=== PATIENT | male | born 1955 | race Caucasian/White ===

== ENCOUNTER → 2025-02-16 | Outpatient (CLI) | payer MEDICARE, OTHER, SELFPAY ==
--- OUTSIDE RECORDS SUMMARY | 2025-02-16 07:52 | XMS RPT_ITS | CCD ---
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 These images were reviewed on 10/12/20. TROPONIN I, PT/INR, CBC, B12, FOLATE, RPR, LIPID PROFILE 10/08/2020: B12 1319, cholesterol 205, LDL 138. AMMONIA, BMP, TSH, CBC 10/09/2020: Hemoglobin 13.2, hematocrit 40. HEAD MRI 10/09/2020: No diffusion evidence of acute infarct. Mild supratentorial white matter changes, similar to 05/24/19. 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 No suspicious intracranial enhancement. These images were reviewed on 10/12/20. EKG 02/05/2021: Normal sinus rhythm, left axis deviation and incomplete right bundle branch block. Abnormal EKG. HEAD MRI 02/07/2021: Small subacute to early chronic ischemic infarct within the posterolateral right frontal lobe. No acute hemorrhage or mass effect. Mild atrophy and chronic small vessel ischemic changes of the supratentorial white matter. CMP, TSH, direct bilirubin, CBC (01/28/21): total bilirubin 1.5, WBC 4.27 (low). Cardiac echo (03/29/21): normal left ventricular chamber size and wall thickness. Systolic function is low normal with no regional wall motion abnormalities with a (more content not included)... Normal [facility] CBC Auto Differentialon 08-02 Basophils (Bld) [#/Vol] 0.07 10*3/uL [facility] Basophils/100 WBC (Bld) 2.0 % [facility] Eosinophils (Bld) [#/Vol] 0.16 10*3/uL [facility] Eosinophils/100 WBC (Bld) 4.6 % [facility] Erythrocyte distribution width (RBC) [Entitic vol] 12.4 % 11.6 - 14.8 % [facility] Hematocrit (Bld) [Volume fraction] 42.8 % 41.0 - 53.0 % [facility] Hemoglobin (Bld) [Mass/Vol] 14.4 g/dL 13.5 - 17.5 g/dL [facility] Immature granulocytes (Bld) [#/Vol] 0.01 10*3/uL [facility] Immature granulocytes/100 WBC (Bld) 0.30 % [facility] Comment on above: The IG parameter is the percentage of metamyelocytes, myelocytes and promyelocytes. An immature granulocyte count (IG) of 1% or more suggests the possibility of infection, an IG count of 3% is very likely related to an infection. Interpretation and review of laboratory results Abnormal [facility] Lymphocytes (Bld) [#/Vol] 0.78 10*3/uL Low [facility] Lymphocytes/100 WBC (Bld) 22.3 % [facility] MCH (RBC) [Entitic mass] 31.1 pg 26.0 - 34.0 pg [facility] MCHC (RBC) [Mass/Vol] 33.6 g/dL 31.0 - 37.0 g/dL [facility] MCV (RBC) [Entitic vol] 92.4 fL 80.0 - 100.0 fL [facility] Monocytes (Bld) [#/Vol] 0.44 10*3/uL [facility] Monocytes/100 WBC (Bld) 12.6 % [facility] Neutrophils (Bld) [#/Vol] 2.03 10*3/uL [facility] Neutrophils/100 WBC (Bld) 58.2 % [facility] Nucleated RBC (Bld) [#/Vol] 0.00 10*3/uL [facility] Nucleated RBC/100 WBC (Bld) [Ratio] 0.0 % [facility] Platelet mean volume (Bld) [Entitic vol] 9.7 fL 9.4 - 12.4 fL [facility] Platelets (Bld) [#/Vol] 201 10*3/uL [facility] RBC (Bld) [#/Vol] 4.63 10*6/uL [facility] WBC (Bld) [#/Vol] 3.49 10*3/uL Low [facility] Comprehensive metabolic 2000 panelon 08-12-2023 Albumin [Mass/Vol] 4.4 g/dL 3.2 - 5.2 g/dL [facility] ALP [Catalytic activity/Vol] 65 U/L 40 - 150 U/L [facility] ALT [Catalytic activity/Vol] 21 U/L 0-50 U/L [facility] Anion gap [Moles/Vol] 13 mmol/L 10 - 20 mmol/L [facility] AST [Catalytic activity/Vol] 26 U/L 0-50 U/L [facility] Bilirubin [Mass/Vol] 1.3 mg/dL 0.0 - 1.3 mg/dL [facility] Calcium [Mass/Vol] 9.6 mg/dL 8.4 - 10.2 mg/dL [facility] Chloride [Moles/Vol] 102 mmol/L 98 - 108 mmol/L [facility] Creatinine [Mass/Vol] 1.27 mg/dL 0.80 - 1.30 mg/dL [facility] GFR/1.73 sq M.predicted CKD-EPI (S/P/Bld) [Vol rate/Area] 61 - PINF [facility] Comment on above: Estimated GFR was ca lculated using the 2020 CKD-EPI creatinine equation. Glucose [Mass/Vol] 86 mg/dL 65 - 99 mg/dL [facility] HCO3 [Moles/Vol] 28 mmol/L 21 - 32 mmol/L [facility] Potassium [Moles/Vol] 4.1 mmol/L 3.5 - 5.1 mmol/L [facility] Protein [Mass/Vol] 6.7 g/dL 6.0 - 8.0 g/dL [facility] Sodium [Moles/Vol] 139 mmol/L 135 - 145 mmol/L [facility] Urea nitrogen [Mass/Vol] 22 mg/dL 8 - 25 mg/dL [facility] Urea nitrogen/Creatini ne [Mass ratio] 17.3 mg/mg 10.0 - 20.0 [facility] has implemented the eGFR calculation approach that does not have a coefficient for race that conforms to the NKF-ASN Task Force Recommendations. [facility] Lipid 1996 panelon Cholesterol [Mass/Vol] 277 mg/dL High 100 - 199 mg/dL [facility] Cholesterol in HDL [Mass/Vol] 56 mg/dL 40 - 59 mg/dL [facility] Cholesterol in LDL [Mass/Vol] 202 mg/dL High 10 - 130 mg/dL [facility] Comment on above: National Cholesterol Education Program Guidelines: LDL Cholesterol Optimal: <100 mg/dL Near Optimal/above Optimal: 100-129 mg/dL Borderline High: 130-159 mg/dL High: 160-189 mg/dL Very High: greater than or equal to 190 mg/dL Cholesterol non HDL [Mass/Vol] 221 mg/dL [facility] Comment on above: National Cholesterol Education Program Guidelines: NON HDL Cholesterol Desirable: <130 mg/dL Borderline High: 130-159 mg/dL High: 160-189 mg/dL Very High: > or = 190 mg/dL Cholesterol.total /Cholesterol in HDL [Mass ratio] 4.9 {ratio} ratio [facility] Comment on above: Males Cholesterol/HD L Ratio: Average risk: 5.0 1/2 average risk: 3.4 2 x average risk: 9.6 Interpretation and review of laboratory results Abnormal [facility] Triglyceride [Mass/Vol] 93 mg/dL 30 - 150 mg/dL [facility] No Panel Informationon 08-11 Interpretation and review of laboratory results Normal [facility] PSA, Screenon 08-12-2023 Prostate specific Ag [Mass/Vol] 0.48 ng/mL 0.00 - 0.99 ng/mL [facility] Comment on above: Per the National Com prehensive Cancer Network (NCCN) Guidelines: . Repeat test every 2-4 years (for ages 45-75) . PSA> 3.0 ng/ml is positive regardless of age. . PSA normal values are based upon a patient with a normal Digital Rectal Exam (KJ). A KJ suspicious for cancer at any PSA level is an indication for biopsy. . Any serum PSA level in a patient previously treated for prostate cancer should be interpreted with caution. Assay performed by [employer], Electrochemiluminescence Immunoassay. Patient results determined by assays using different instrumentation may not be comparable. TSH DL <= 0.005 mIU/L Qnon 0 08-12-2023 Interpretation and review of laboratory results Normal [facility] TSH Qn 2.69 m[IU]/L [facility] CBC Auto Differentialon 07-04 Basophils (Bld) [#/Vol] 0.07 10*3/uL [facility] Basophils/100 WBC (Bld) 2.0 % [facility] Eosinophils (Bld) [#/Vol] 0.15 10*3/uL [facility] Eosinophils/100 WBC (Bld) 4.2 % [facility] Erythrocyte distribution width (RBC) [Entitic vol] 12.5 % 11.6 - 14.8 % [facility] Hematocrit (Bld) [Volume fraction] 43.7 % 41.0 - 53.0 % [facility] Hemoglobin (Bld) [Mass/Vol] 14.4 g/dL 13.5 - 17.5 g/dL [facility] Immature granulocytes (Bld) [#/Vol] 0.01 10*3/uL [facility] Immature granulocytes/100 WBC (Bld) 0.30 % [facility] Comment on above: The IG parameter is the percentage of metamyelocytes, myelocytes and promyelocytes. An immature granulocyte count (IG) of 1% or more suggests the possibility of infection, an IG count of 3% is very likely related to an infection. Interpretation and review of laboratory results Abnormal [facility] Lymphocytes (Bld) [#/Vol] 0.84 10*3/uL Low [facility] Lymphocytes/100 WBC (Bld) 23.5 % [facility] MCH (RBC) [Entitic mass] 30.8 pg 26.0 - 34.0 pg [facility] MCHC (RBC) [Mass/Vol] 33.0 g/dL 31.0 - 37.0 g/dL [facility] MCV (RBC) [Entitic vol] 93.6 fL 80.0 - 100.0 fL [facility] Monocytes (Bld) [#/Vol] 0.41 10*3/uL [facility] Monocytes/100 WBC (Bld) 11.5 % [facility] Neutrophils (Bld) [#/Vol] 2.10 10*3/uL [facility] Neutrophils/100 WBC (Bld) 58.5 % [facility] Nucleated RBC (Bld) [#/Vol] 0.00 10*3/uL [facility] Nucleated RBC/100 WBC (Bld) [Ratio] 0.0 % [facility] Platelet mean volume (Bld) [Entitic vol] 9.9 fL 9.4 - 12.4 fL [facility] Platelets (Bld) [#/Vol] 188 10*3/uL [facility] RBC (Bld) [#/Vol] 4.67 10*6/uL [facility] WBC (Bld) [#/Vol] 3.58 10*3/uL Low [facility] Comprehensive metabolic 2000 panelon 08-01-2022 Albumin [Mass/Vol] 4.1 g/dL 3.2 - 5.2 g/dL [facility] ALP [Catalytic activity/Vol] 62 U/L 40 - 150 U/L [facility] ALT [Catalytic activity/Vol] 32 U/L 14 - 65 U/L [facility] Anion gap [Moles/Vol] 8 mmol/L Low 10 - 20 mmol/L [facility] AST [Catalytic activity/Vol] 23 U/L 0 - 45 U/L [facility] Bilirubin [Mass/Vol] 1.2 mg/dL 0.0 - 1.3 mg/dL [facility] Calcium [Mass/Vol] 9.7 mg/dL 8.4 - 10.2 mg/dL [facility] Chloride [Moles/Vol] 107 mmol/L 98 - 108 mmol/L [facility] Creatinine [Mass/Vol] 1.13 mg/dL 0.80 - 1.30 mg/dL [facility] GFR/1.73 sq M.predicted CKD-EPI (S/P/Bld) [Vol rate/Area] 71 - PINF [facility] Comment on above: Estimated GFR was ca lculated using the 2020 CKD-EPI creatinine equation. Glucose [Mass/Vol] 90 mg/dL 65 - 99 mg/dL [facility] HCO3 [Moles/Vol] 31 mmol/L 21 - 32 mmol/L [facility] Interpretation and review of laboratory results Abnormal [facility] Potassium [Moles/Vol] 4.2 mmol/L 3.5 - 5.1 mmol/L [facility] Protein [Mass/Vol] 6.9 g/dL 6.0 - 8.0 g/dL [facility] Sodium [Moles/Vol] 142 mmol/L 135 - 145 mmol/L [facility] Urea nitrogen [Mass/Vol] 16 mg/dL 8 - 25 mg/dL [facility] Urea nitrogen/Creatini ne [Mass ratio] 14.2 mg/mg 10.0 - 20.0 [facility] has implemented the eGFR calculation approach that does not have a coefficient for race that conforms to the NKF-ASN Task Force Recommendations. [facility] Lipid 1996 panelon Cholesterol [Mass/Vol] 178 mg/dL 100 - 199 mg/dL [facility] Comment on above: National Cholesterol Education Program Guidelines: Cholesterol Desirable: <200 mg/dL Borderline High: 200-239 mg/dL High: greater than or equal to 240 mg/dL Cholesterol in HDL [Mass/Vol] 57 mg/dL 40 - 59 mg/dL [facility] Comment on above: National Cholesterol Education Program Guidelines: HDL Cholesterol Low: <40 mg/dL Near Optimal: 40-59 mg/dL High: greater than or equal to 60 mg/dL Cholesterol in LDL [Mass/Vol] 105 mg/dL 10 - 130 mg/dL [facility] Comment on above: National Cholesterol Education Program Guidelines: LDL Cholesterol Optimal: <100 mg/dL Near Optimal/above Optimal: 100-129 mg/dL Borderline High: 130-159 mg/dL High: 160-189 mg/dL Very High: greater than or equal to 190 mg/dL Cholesterol non HDL [Mass/Vol] 121 mg/dL [facility] Comment on above: National Cholesterol Education Program Guidelines: NON HDL Cholesterol Desirable: <130 mg/dL Borderline High: 130-159 mg/dL High: 160-189 mg/dL Very High: > or = 190 mg/dL Cholesterol.total /Cholesterol in HDL [Mass ratio] 3.1 {ratio} ratio [facility] Comment on above: Males Cholesterol/HD L Ratio: Average risk: 5.0 1/2 average risk: 3.4 2 x average risk: 9.6 Triglyceride [Mass/Vol] 78 mg/dL 30 - 150 mg/dL [facility] Comment on above: National Cholesterol Education Program Guidelines: Triglyceride Normal: <150 mg/dL Borderline High: 150-199 mg/dL High: 200-499 mg/dL Very High: greater than or equal to 500 mg/dL No Panel Informationon 08-01 [facility] PSA, Screenon 08-01-2022 Prostate specific Ag [Mass/Vol] 0.54 ng/mL 0.00 - 0.99 ng/mL [facility] Prostate specific Ag [Mass/V ol]on 08-01-2022 Interpretation and review of laboratory results Normal [facility] TSH DL <= 0.005 mIU/L Qnon 0 08-01-2022 Interpretation and review of laboratory results Normal [facility] TSH Qn 2.94 m[IU]/L [facility] MR BRAIN WITH AND WITHOUT CO NTRASTon 02-07-2021 MR BRAIN WITH AND WITHOUT CONTRAST EXAMINATION: MR BRAIN WITH AND WITHOUT CONTRAST HISTORY: ORDERING SYSTEM PROVIDED HISTORY: Cerebrovascular disease, unspecified, TECHNOLOGIST PROVIDED HISTORY: Illness/Other Reason for exam: Dysarthria following unspecified cerebrovascular disease Encounter Type: Initial Additional signs and symptoms: Dysarthria following unspecified cerebrovascular disease ORDERING SYSTEM PROVIDED DIAGNOSIS CODES: I67.9 Cerebrovascular disease, unspecified I69.922 Dysarthria following unspecified cerebrovascular disease COMPARISON: Brain MRI 10/09/2020. TECHNIQUE: Multiplanar, multisequence MR imaging of the head was performed prior to and following administration of intravenous contrast. CONTRAST: GADOTERATE MEGLUMINE 0.5 MMOL/ML (376.9 MG/ML) INTRAVENOUS SOLUTION - 13 mL, FINDINGS: There is a small subtle area of increased diffusion within the posterolateral right frontal lobe measuring approximately 0.3 x 1.6 cm in the AP and transverse dimensions that demonstrates increased signal on the ADC maps, new compared to the prior MRI. No other focal diffusion signal abnormalities. No acute hemorrhage, mass effect, midline shift or extraaxial fluid collection. There is mild diffuse cerebral atrophy with concordant prominence of the ventricles. Mild scattered foci of increased FLAIR signal seen within the subcortical and periventricular white matter. Expected flow voids are seen within the intracranial internal carotid, vertebral and basilar arteries. The cerebellopontine angles and internal auditory canals are unremarkable. The pituitary gland and midline structures are unremarkable. Bone marrow signal is within normal limits. Orbits and globes are unremarkable. Expected signal voids are seen within the paranasal sinuses and mastoid air cells. There is minimal enhancement within the posterolateral right frontal cortex corresponding to the area of increased diffusion signal. No other abnormal enhancement. IMPRESSION: 1. Small subacute to early chronic ischemic infarct within the posterolateral right frontal lobe. No acute hemorrhage or mass effect. 2. Mild atrophy and chronic small vessel ischemic changes of the supratentorial white matter. [facility] Workstation ID: [id number] Dictated by: JEANNINE KAUR on ThuFeb 08, 2021 10:32:18 AM EDT Transcribed by: SOULEYMANE GARCÍA on ThuFeb 08, 2021 10:41:25 AM EDT Finalized by: JEANNINE KAUR on ThuFeb 08, 2021 5:02:[address] [facility] Comment on above: Order Comment: PT/FA X Order to be faxed from Physicians office; Auth already obtained by office Injury/Trauma or Illness?:Illness/Other How long have you had these symptoms (acute/chronic)?:Acute Reason for exam?:Dysarthria following unspecified cerebrovascular disease Type of Exam?:Initial Additional signs and symptoms?:Dysarthria following unspecified cerebrovascular disease EEG (STANDARD)Ordered By: Fito Morris on 10-09-2020 Gokul Morris MD 12:13 PM [facility] EEG Report Reason for EEG: Altered mentation Summary: This is a 16 channel digital EEG recording. There is a moderately well-developed, moderately well organized background activity with a posterior dominant rhythm of 8-9 Hz. Hyperventilation and photic stimulations were not done. No sleep patterns are noted. No clear epileptiform discharges or ictal activity were seen. Impression: This is a normal EEG in the awake state. There is no clear electrodiagnostic evidence of a diffuse or focal neurophysiological disturbance. No clear epileptiform discharges or ictal activity was seen. [facility] COVID-19, MOLECULARon 2020 SARS-CoV-2 (COVID-19) RNA CORI+probe Ql (Unsp spec) Not detected Normal Not Detected [facility] Comment on above: Order Comment: : COV ID-19 Lab Test Only (OP in UTM) Result Comment: This test was performed under the FDA's Emergency Use Authorization (EUA). Testing was performed using the Tigre SARS-CoV-2 RT-PCR assay on the [employer] 6800 System. This test has not been approved for use in asymptomatic patients and its performance in this patient population has not been evaluated. Negative results do not rule out the presence of SARS-CoV-2/COVID-19. Fact sheets for this EUA can be found at the following links: For Healthcare Providers: https://www.fda.gov/media/179490/download For Patients: https://www.fda.gov/media/088138/download Performed By: #### L [id number] #### [facility] [address] [place] [address] Rolando Hayes M.D. [id number] SCAN OTHER ORDERSon 07-04-19 20 Ordered by an unspec ified provider. [facility] CBC AND DIFFERENTIALon 06-09 Basophils (Bld) [#/Vol] 0.0 10*3/uL [facility] Basophils/100 WBC (Bld) 1.0 % [facility] Eosinophils (Bld) [#/Vol] 0.1 10*3/uL [facility] Eosinophils/100 WBC (Bld) 3.4 % [facility] Erythrocyte distribution width (RBC) [Ratio] 13.7 % 10 - 14.3 % [facility] Hematocrit (Bld) [Volume fraction] 36.6 % Low 37.9 - 49.2 % [facility] Hemoglobin (Bld) [Mass/Vol] 12.2 g/dL Low 12.9 - 16.9 g/dL [facility] Interpretation and review of laboratory results Abnormal [facility] Lymphocytes (Bld) [#/Vol] 0.7 10*3/uL Low [facility] Lymphocytes/100 WBC (Bld) 16.2 % [facility] MCH (RBC) [Entitic mass] 30.1 pg 27.7 - 34.6 pg [facility] MCHC (RBC) [Mass/Vol] 33.4 g/dL 32.9 - 35.5 g/dL [facility] MCV (RBC) [Entitic vol] 89.9 fL [facility] Monocytes (Bld) [#/Vol] 0.4 10*3/uL [facility] Monocytes/100 WBC (Bld) 10.0 % [facility] Neutrophils (Bld) [#/Vol] 3.1 10*3/uL [facility] Platelet mean volume (Bld) [Entitic vol] 8.2 fL [facility] Platelets (Bld) [#/Vol] 216 10*3/uL [facility] RBC (Bld) [#/Vol] 4.07 10*6/uL [facility] ealth Segmented neutrophils/100 WBC (Bld) 69.4 % [facility] WBC (Bld) [#/Vol] 4.4 10*3/uL [facility] CBC with Diffon 06-09-2018 Basophils #/vol (Bld) 0.0 K/mcL Normal 0-0.2 [facility] Comment on above: Performed By: #### C BCDIF #### Unless otherwise noted, all testing performed by [place] [address] CLIA: [id number] Certified Endoscopy Technician: Manolo Jacobs M.D. Basophils/100 WBC (Bld) 1.0 % Normal [facility] Comment on above: Performed By: #### C BCDIF #### Unless otherwise noted, all testing performed by [place] [address] CLIA: [id number] Certified Endoscopy Technician: Manolo Jacobs M.D. Eosinophils #/vol (Bld) 0.1 K/mcL Normal 0-0.5 [facility] Comment on above: Performed By: #### C BCDIF #### Unless otherwise noted, all testing performed by [place] [address] CLIA: [id number] Certified Endoscopy Technician: Manolo Jacobs M.D. Eosinophils/100 WBC (Bld) 3.4 % Normal [facility] Comment on above: Performed By: #### C BCDIF #### Unless otherwise noted, all testing performed by [place] [address] CLIA: [id number] Certified Endoscopy Technician: Manolo Jacobs M.D. Erythrocyte distribution width Ratio (RBC) 13.7 % Normal 10-14.3 [facility] Comment on above: Performed By: #### C BCDIF #### Unless otherwise noted, all testing performed by [place] [address] CLIA: [id number] Certified Endoscopy Technician: Manolo Jacobs M.D. Hematocrit Volume Fraction (Bld) 36.6 % Low 37.9-49.2 [facility] Comment on above: Performed By: #### C BCDIF #### Unless otherwise noted, all testing performed by [place] [address] CLIA: [id number] Certified Endoscopy Technician: Manolo Jacobs M.D. Hemoglobin mass conc (Bld) 12.2 g/dL Low 12.9-16.9 [facility] Comment on above: Performed By: #### C BCDIF #### Unless otherwise noted, all testing performed by [place] [phone] CLIA: [id number] Certified Endoscopy Technician: Manolo Jacobs M.D. Lymphocytes #/vol (Bld) 0.7 K/mcL Low 0.9-3.6 [facility] Comment on above: Performed By: #### C BCDIF #### Unless otherwise noted, all testing performed by [place] [address] CLIA: [id number] Certified Endoscopy Technician: Manolo Jacobs M.D. Lymphocytes/100 WBC (Bld) 16.2 % Normal [facility] Comment on above: Performed By: #### C BCDIF #### Unless otherwise noted, all testing performed by [place] [address] CLIA: [id number] Certified Endoscopy Technician: Manolo Jacobs M.D. MCH Entitic mass (RBC) 30.1 pg Normal 27.7-34.6 [facility] Comment on above: Performed By: #### C BCDIF #### Unless otherwise noted, all testing performed by [place] [address] CLIA: [id number] Certified Endoscopy Technician: Manolo Jacobs M.D. MCHC mass conc (RBC) 33.4 g/dL Normal 32.9-35.5 [facility] Comment on above: Performed By: #### C BCDIF #### Unless otherwise noted, all testing performed by [place] [phone] CLIA: [id number] Certified Endoscopy Technician: Manolo Jacobs M.D. MCV Entitic volume (RBC) 89.9 fL Normal 82.8-99.3 [facility] Comment on above: Performed By: #### C BCDIF #### Unless otherwise noted, all testing performed by [place] [phone] CLIA: [id number] Certified Endoscopy Technician: Manolo Jacobs M.D. Monocytes #/vol (Bld) 0.4 K/mcL Normal 0.2-0.6 [facility] Comment on above: Performed By: #### C BCDIF #### Unless otherwise noted, all testing performed by [place] [phone] CLIA: [id number] Certified Endoscopy Technician: Manolo Jacobs M.D. Monocytes/100 WBC (Bld) 10.0 % Normal [facility] Comment on above: Performed By: #### C BCDIF #### Unless otherwise noted, all testing performed by [place] [address] CLIA: [id number] Certified Endoscopy Technician: Manolo Jacobs M.D. Neutrophils #/vol (Bld) 3.1 K/mcL Normal 1.4-6.8 [facility] Comment on above: Performed By: #### C BCDIF #### Unless otherwise noted, all testing performed by [place] [address] CLIA: [id number] Certified Endoscopy Technician: Manolo Jacobs M.D. Platelet mean volume Entitic volume (Bld) 8.2 fL Normal 6.6-10.8 [facility] Comment on above: Performed By: #### C BCDIF #### Unless otherwise noted, all testing performed by [place] [phone] CLIA: [id number] Certified Endoscopy Technician: Manolo Jacobs M.D. Platelets #/vol (Bld) 216 K/mcL Normal 139-354 [facility] Comment on above: Performed By: #### C BCDIF #### Unless otherwise noted, all testing performed by [place] [phone] CLIA: [id number] Certified Endoscopy Technician: Manolo Jacobs M.D. RBC #/vol (Bld) 4.07 M/mcL Normal 4.0-5.5 [facility] Comment on above: Performed By: #### C BCDIF #### Unless otherwise noted, all testing performed by [place] [address] CLIA: [id number] Certified Endoscopy Technician: Manolo Jcaobs M.D. Segmented Neut % 69.4 % Normal [facility] Comment on above: Performed By: #### C BCDIF #### Unless otherwise noted, all testing performed by [place] [address] CLIA: [id number] Certified Endoscopy Technician: Manolo Jacobs M.D. WBC #/vol (Bld) 4.4 K/mcL Normal 3.6-10.4 [facility] Comment on above: Performed By: #### C BCDIF #### Unless otherwise noted, all testing performed by [place] [address] CLIA: [id number] Certified Endoscopy Technician: Manolo Jacobs M.D. CBC with Diffon 04-02-2018 Basophils #/vol (Bld) 0.1 K/mcL Normal 0-0.2 [facility] Comment on above: Result Comment: FAX [phone] Performed By: #### C BCDIF #### Unless otherwise noted, all testing performed by [place] [address] CLIA: [id number] Certified Endoscopy Technician: Manolo Jacobs M.D. Basophils/100 WBC (Bld) 1.2 % Normal [facility] Comment on above: Result Comment: FAX [phone] Performed By: #### C BCDIF #### Unless otherwise noted, all testing performed by [place] [address] CLIA: [id number] Certified Endoscopy Technician: Manolo Jacobs M.D. Eosinophils #/vol (Bld) 0.2 K/mcL Normal 0-0.5 [facility] Comment on above: Result Comment: FAX [phone] Performed By: #### C BCDIF #### Unless otherwise noted, all testing performed by [address] [place] [address] CLIA: [id number] Certified Endoscopy Technician: Manolo Jacobs M.D. Eosinophils/100 WBC (Bld) 3.9 % Normal [facility] Comment on above: Result Comment: FAX [phone] Performed By: #### C BCDIF #### Unless otherwise noted, all testing performed by [place] [address] CLIA: [id number] Certified Endoscopy Technician: Manolo Jacobs M.D. Erythrocyte distribution width Ratio (RBC) 14.4 % High 10-14.3 [facility] Comment on above: Result Comment: FAX [phone] Performed By: #### C BCDIF #### Unless otherwise noted, all testing performed by [place] [address] CLIA: [id number] Certified Endoscopy Technician: Manolo Jacobs M.D. Hematocrit Volume Fraction (Bld) 38.3 % Normal 37.9-49.2 [facility] Comment on above: Result Comment: FAX [phone] Performed By: #### C BCDIF #### Unless otherwise noted, all testing performed by [place] [address] CLIA: [id number] Certified Endoscopy Technician: Manolo Jacobs M.D. Hemoglobin mass conc (Bld) 12.7 g/dL Low 12.9-16.9 [facility] Comment on above: Result Comment: FAX [phone] Performed By: #### C BCDIF #### Unless otherwise noted, all testing performed by [place] [address] CLIA: [id number] Certified Endoscopy Technician: Manolo Jacobs M.D. Lymphocytes #/vol (Bld) 0.8 K/mcL Low 0.9-3.6 [facility] Comment on above: Result Comment: FAX [phone] Performed By: #### C BCDIF #### Unless otherwise noted, all testing performed by [place] [address] CLIA: [id number] Certified Endoscopy Technician: Manolo Jacobs M.D. Lymphocytes/100 WBC (Bld) 18.2 % Normal [facility] Comment on above: Result Comment: FAX [phone] Performed By: #### C BCDIF #### Unless otherwise noted, all testing performed by [place] [address] CLIA: [id number] Certified Endoscopy Technician: Manolo Jacobs M.D. MCH Entitic mass (RBC) 30.6 pg Normal 27.7-34.6 [facility] Comment on above: Result Comment: FAX [phone] Performed By: #### C BCDIF #### Unless otherwise noted, all testing performed by [place] [address] CLIA: [id number] Certified Endoscopy Technician: Manolo Jacobs M.D. MCHC mass conc (RBC) 33.1 g/dL Normal 32.9-35.5 [facility] Comment on above: Result Comment: FAX [phone] Performed By: #### C BCDIF #### Unless otherwise noted, all testing performed by [place] [address] CLIA: [id number] Certified Endoscopy Technician: Manolo Jacobs M.D. MCV Entitic volume (RBC) 92.4 fL Normal 82.8-99.3 [facility] Comment on above: Result Comment: FAX [phone] Performed By: #### C BCDIF #### Unless otherwise noted, all testing performed by [place] [address] CLIA: [id number] Certified Endoscopy Technician: Manolo Jacobs M.D. Monocytes #/vol (Bld) 0.5 K/mcL Normal 0.2-0.6 [facility] Comment on above: Result Comment: FAX [phone] Performed By: #### C BCDIF #### Unless otherwise noted, all testing performed by [place] [address] CLIA: [id number] Certified Endoscopy Technician: Manolo Jacobs M.D. Monocytes/100 WBC (Bld) 11.6 % Normal [facility] Comment on above: Result Comment: FAX [phone] Performed By: #### C BCDIF #### Unless otherwise noted, all testing performed by [place] [address] CLIA: [id number] Certified Endoscopy Technician: Manolo Jaocbs M.D. Neutrophils #/vol (Bld) 3.0 K/mcL Normal 1.4-6.8 [facility] Comment on above: Result Comment: FAX [phone] Performed By: #### C BCDIF #### Unless otherwise noted, all testing performed by [place] [address] CLIA: [id number] Certified Endoscopy Technician: Manolo Jacobs M.D. Platelet mean volume Entitic volume (Bld) 7.9 fL Normal 6.6-10.8 [facility] Comment on above: Result Comment: FAX [phone] Performed By: #### C BCDIF #### Unless otherwise noted, all testing performed by [place] [address] CLIA: [id number] Certified Endoscopy Technician: Manolo Jacobs M.D. Platelets #/vol (Bld) 194 K/mcL Normal 139-354 [facility] Comment on above: Result Comment: FAX [phone] Performed By: #### C BCDIF #### Unless otherwise noted, all testing performed by [place] [address] CLIA: [id number] Certified Endoscopy Technician: Manolo Jacobs M.D. RBC #/vol (Bld) 4.14 M/mcL Normal 4.0-5.5 [facility] Comment on above: Result Comment: FAX [phone] Performed By: #### C BCDIF #### Unless otherwise noted, all testing performed by [place] [address] CLIA: [id number] Certified Endoscopy Technician: Manolo Jacobs M.D. Segmented Neut % 65.1 % Normal [facility] Comment on above: Result Comment: FAX [phone] Performed By: #### C BCDIF #### Unless otherwise noted, all testing performed by [place] [address] CLIA: [id number] Certified Endoscopy Technician: Manolo Jacobs M.D. WBC #/vol (Bld) 4.6 K/mcL Normal 3.6-10.4 [facility] Comment on above: Result Comment: FAX [phone] Performed By: #### C BCDIF #### Unless otherwise noted, all testing performed by [facility] [place] [id number] CLIA: [id number] Certified Endoscopy Technician: Manolo Jacobs M.D. Vital Signs Date Time Vital Sign Value Performing Clinician [facility] 01-18-2025 16:10-0400 Body height 175.3 cm Gigi George DO Work Phone: [facility] 01-18-2025 16:10-0400 Body mass index (BMI) [Ratio] 22.96 kg/m2 Gigi George DO Work Phone: [facility] 01-18-2025 16:10-0400 Body temperature 97 [degF] Gigi George DO Work Phone: [facility] 01-18-2025 16:10-0400 Body weight 70.53 kg Gigi George DO Work Phone: [facility] 01-18-2025 16:10-0400 Diastolic blood pressure 60 mm[Hg] Gigi George DO Work Phone: [facility] 01-18-2025 16:10-0400 Heart rate 60 /min Gigi George DO Work Phone: [facility] 01-18-2025 16:10-0400 Respiratory rate 16 /min Gigi George DO Work Phone: [facility] 01-18-2025 16:10-0400 SaO2% (BldA) [Mass fraction] 98 % Gigi George DO Work Phone: [facility] 01-18-2025 16:10-0400 Systolic blood pressure 100 mm[Hg] Gigi George D O Work Phone: [facility] 07-21-2024 07:41-0400 Body height 175.3 cm Gigi George DO Work Phone: [facility] 07-21-2024 07:41-0400 Body mass index (BMI) [Ratio] 22.65 kg/m2 Gigi George DO Work Phone: [facility] 07-21-2024 07:41-0400 Body temperature 98.2 [degF] Gigi George DO Work Phone: [facility] 07-21-2024 07:41-0400 Body weight 69.58 kg Gigi George DO Work Phone: [facility] 07-21-2024 07:41-0400 Diastolic blood pressure 82 mm[Hg] Gigi George DO Work Phone: [facility] 07-21-2024 07:41-0400 Heart rate 58 /min Gigi George DO Work Phone: [facility] 07-21-2024 07:41-0400 SaO2% (BldA) [Mass fraction] 95 % Gigi George DO Work Phone: [facility] 07-21-2024 07:41-0400 Systolic blood pressure 124 mm[Hg] Gigi Ghotra O Work Phone: [facility] 08-12-2023 07:58-0400 Diastolic blood pressure 90 mm[Hg] Gigi George DO Work Phone: [facility] 08-12-2023 07:58-0400 Systolic blood pressure 140 mm[Hg] Gigi Ghotra O Work Phone: [facility] 08-12-2023 07:39-0400 Body height 175.3 cm Gigi George DO Work Phone: [facility] 08-12-2023 07:39-0400 Body mass index (BMI) [Ratio] 22.4 kg/m2 Gigi George DO Work Phone: [facility] 08-12-2023 07:39-0400 Body temperature 98.71 [degF] Gigi George DO Work Phone: [facility] 08-12-2023 07:39-0400 Body weight 68.81 kg Gigi George DO Work Phone: [facility] 08-12-2023 07:39-0400 Heart rate 72 /min Gigi Doris DO Work Phone: [facility] 08-12-2023 07:39-0400 Respiratory rate 16 /min Gigi Doris DO Work Phone: [facility] 08-12-2023 07:39-0400 SaO2% (BldA) [Mass fraction] 96 % Gigi George DO Work Phone: [facility] 08-01-2022 07:48-0400 Diastolic blood pressure 80 mm[Hg] Gigi George DO Work Phone: [facility] 08-01-2022 07:48-0400 Systolic blood pressure 146 mm[Hg] Gigi George D O Work Phone: [facility] 08-01-2022 07:28-0400 Body height 175.3 cm Gigi George DO Work Phone: [facility] 08-01-2022 07:28-0400 Body mass index (BMI) [Ratio] 21.89 kg/m2 Gigi Doris DO Work Phone: [facility] 08-01-2022 07:28-0400 Body temperature 97.5 [degF] Gigi Doris DO Work Phone: [facility] 08-01-2022 07:28-0400 Body weight 67.22 kg Gigi Doris DO Work Phone: [facility] 08-01-2022 07:28-0400 Heart rate 78 /min Gigi George DO Work Phone: [facility] 08-01-2022 07:28-0400 Respiratory rate 16 /min Gigi George DO Work Phone: [facility] 01-16-2022 10:32-0400 Body height 175.3 cm Gigi George DO Work Phone: [facility] 01-16-2022 10:32-0400 Body mass index (BMI) [Ratio] 22.48 kg/m2 Gigi George DO Work Phone: [facility] 01-16-2022 10:32-0400 Body temperature 98.29 [degF] Gigi George DO Work Phone: [facility] 01-16-2022 10:32-0400 Body weight 69.04 kg Gigi George DO Work Phone: [facility] 01-16-2022 10:32-0400 Diastolic blood pressure 78 mm[Hg] Gigi George DO Work Phone: [facility] 01-16-2022 10:32-0400 Heart rate 66 /min Gigi George DO Work Phone: [facility] 01-16-2022 10:32-0400 Respiratory rate 16 /min Gigi George DO Work Phone: [facility] 01-16-2022 10:32-0400 SaO2% (BldA) [Mass fraction] 98 % Gigi George DO Work Phone: [facility] 01-16-2022 10:32-0400 Systolic blood pressure 128 mm[Hg] Gigi George D O Work Phone: [facility] 07-11-2021 10:38-0500 Diastolic blood pressure 80 mm[Hg] Gigi George DO Work Phone: [facility] 07-11-2021 10:38-0500 Systolic blood pressure 132 mm[Hg] Gigi Ghotra O Work Phone: [facility] 07-11-2021 10:12-0500 Body height 175.3 cm Gigi George DO Work Phone: [facility] 07-11-2021 10:12-0500 Body mass index (BMI) [Ratio] 22.3 kg/m2 Gigi George DO Work Phone: [facility] 07-11-2021 10:12-0500 Body temperature 97.59 [degF] Gigi George DO Work Phone: [facility] 07-11-2021 10:12-0500 Body weight 68.49 kg Gigi George DO Work Phone: [facility] 07-11-2021 10:12-0500 Heart rate 66 /min Gigi Doris DO Work Phone: [facility] 07-11-2021 10:12-0500 Respiratory rate 18 /min Gigi Doris DO Work Phone: [facility] 07-11-2021 10:12-0500 SaO2% (BldA) [Mass fraction] 96 % Gigi George DO Work Phone: [facility] 03-27-2021 09:10-0500 Diastolic blood pressure 88 mm[Hg] Fazal Knapp MD Work Phone: [facility] 03-27-2021 09:10-0500 Systolic blood pressure 155 mm[Hg] Fazal Knapp MD Work Phone: [facility] 03-27-2021 08:57-0500 Body height 175.3 cm Fazal Knapp MD Work Phone: [facility] 03-27-2021 08:57-0500 Body mass index (BMI) [Ratio] 22 kg/m2 Fazal Knapp MD Work Phone: [facility] 03-27-2021 08:57-0500 Body weight 67.59 kg Fazal Knapp MD Work Phone: [facility] 03-27-2021 08:57-0500 Heart rate 78 /min Fazal Knapp MD Work Phone: [facility] 03-27-2021 08:57-0500 SaO2% (BldA) [Mass fraction] 98 % Fazal Knapp MD Work Phone: [facility] 03-14-2021 14:42-0500 Body height 175.3 cm Gigi George DO Work Phone: [facility] 03-14-2021 14:42-0500 Body mass index (BMI) [Ratio] 22 kg/m2 Gigi George DO Work Phone: [facility] 03-14-2021 14:42-0500 Body temperature 98.1 [degF] Gigi Doris DO Work Phone: [facility] 03-14-2021 14:42-0500 Body weight 67.59 kg Gigi Doris DO Work Phone: [facility] 03-14-2021 14:42-0500 Diastolic blood pressure 70 mm[Hg] Gigi George DO Work Phone: [facility] 03-14-2021 14:42-0500 Heart rate 79 /min Gigi Doris DO Work Phone: [facility] 03-14-2021 14:42-0500 Respiratory rate 18 /min Gigi George DO Work Phone: [facility] 03-14-2021 14:42-0500 SaO2% (BldA) [Mass fraction] 96 % Gigi George DO Work Phone: [facility] 03-14-2021 14:42-0500 Systolic blood pressure 136 mm[Hg] Gigi George D O Work Phone: [facility] 07-11-2019 15:30-0400 Body Temperature 97.7 [degF] [facility] 07-11-2019 15:30-0400 BP Diastolic 82 mm[Hg] [facility] 07-11-2019 15:30-0400 BP Systolic 163 mm[Hg] [facility] 07-11-2019 15:30-0400 Pulse (Heart Rate) 68 /min [facility] 07-11-2019 15:30-0400 Pulse Oximetry 98 % [facility] 07-11-2019 15:25-0400 BMI (Body Mass Index) 21.63 kg/m2 [facility] 07-11-2019 15:25-0400 Body weight 66.45 kg [facility] 07-11-2019 15:25-0400 Height 175.3 cm [facility] 07-05-2019 15:21-0500 BP Diastolic 105 mm[Hg] [facility] 07-05-2019 15:21-0500 BP Systolic 152 mm[Hg] [facility] 07-05-2019 15:21-0500 Pulse (Heart Rate) 77 /min [facility] 07-05-2019 15:04-0500 Pulse Oximetry 98 % [facility] 07-05-2019 15:04-0500 Respiratory Rate 15 /min [facility] 07-05-2019 14:40-0500 Body Temperature 97.81 [degF] [facility] 07-05-2019 12:48-0500 BMI (Body Mass Index) 21.41 kg/m2 [facility] 07-05-2019 12:48-0500 Body weight 65.77 kg [facility] 07-05-2019 12:48-0500 Height 175.3 cm [facility] 06-17-2019 13:48-0500 Body Temperature 98.71 [degF] [facility] 06-17-2019 13:48-0500 BP Diastolic 74 mm[Hg] [facility] 06-17-2019 13:48-0500 BP Systolic 118 mm[Hg] [facility] 06-17-2019 13:48-0500 Pulse (Heart Rate) 77 /min [facility] 06-17-2019 13:48-0500 Pulse Oximetry 95 % [facility] 06-17-2019 13:40-0500 BMI (Body Mass Index) 21.59 kg/m2 [facility] 06-17-2019 13:40-0500 Body weight 66.32 kg [facility] 06-17-2019 13:40-0500 Height 175.3 cm [facility] Encounters Encounter Date Encounter Type Care Provider Facility Start: 02-16-2025 ambulatory Dayana Stahl Facilit y:[facility] Start: 01-18-2025 End: 01-18-2025 Patient encounter procedure Gigi George DO Work Phone: [facility] Comment on above: Routine general medi michael examination at a health care facility (Primary Dx); At low risk for fall; Screen for colon cancer; 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 Start: 01-18-2025 End: 01-18-2025 Patient encounter status Gigi George DO Work Phone: [facility] Start: 01-16-2025 End: 01-16-2025 Documentation procedure Gigi George DO Work Phone: [facility] Comment on above: MWV OUTREACH (APPT ) Start: 01-01-2025 End: 01-03-2025 Refill Gigi George DO Work Phone: [facility] Comment on above: Erectile dysfunction , unspecified erectile dysfunction type Start: 12-30-2024 End: 01-03-2025 Refill Gigi George DO Work Phone: [facility] Start: 11-17-2024 End: 11-17-2024 Refill Gigi George DO Work Phone: [facility] Comment on above: Mild intermittent ex trinsic asthma without complication Start: 10-30-2024 End: 10-31-2024 Refill Gigi George DO Work Phone: [facility] Comment on above: Erectile dysfunction , unspecified erectile dysfunction type Start: 10-05-2024 ambulatory GIGI GEORGE [facility] Amb[facility] Start: 08-27-2024 End: 08-29-2024 Refill Gigi George DO Work Phone: [facility] Comment on above: Erectile dysfunction , unspecified erectile dysfunction type Start: 07-22-2024 End: 07-22-2024 Follow-up encounter Gigi George DO Work Phone: [facility] Start: 07-21-2024 End: 07-21-2024 ambulatory [facility] Start: 07-21-2024 End: 07-21-2024 Office outpatient visit 25 minutes Gigi George DO Work Phone: [facility] Comment on above: Primary hypertension (Primary Dx); Dementia in other diseases classified elsewhere, mild, with mood disturbance (HCC); Hypercholesterolemia; Prostate cancer screening; At low risk for fall; 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 Start: 07-21-2024 End: 07-21-2024 ambulatory GIGI SNOWFredy JONESDORIS [facility] Start: 06-25-2024 End: 06-26-2024 Refill Gigi George DO Work Phone: [facility] Comment on above: Erectile dysfunction , unspecified erectile dysfunction type Start: 04-21-2024 End: 04-21-2024 Refill Ggii Snowe Doris DO Work Phone: [facility] Comment on above: Mild intermittent ex trinsic asthma without complication Start: 04-13-2024 End: 04-13-2024 Refill Gigi George DO Work Phone: [facility] Comment on above: Erectile dysfunction , unspecified erectile dysfunction type Start: 02-18-2024 End: 02-18-2024 ambulatory GIGI GEORGE [facility] Start: 01-03-2024 End: 01-05-2024 Refill Gigi Mic Doris DO Work Phone: [facility] Start: 12-03-2023 End: 12-04-2023 Refill Gigi Mic Doris DO Work Phone: [facility] Comment on above: Mild intermittent ex trinsic asthma without complication Start: 09-22-2023 Refill Gigi mayell DO Work Phone: [facility] Comment on above: Mild intermittent ex trinsic asthma without complication Start: 08-12-2023 End: 08-12-2023 Office outpatient visit 25 minutes Gigi George DO Work Phone: [facility] Comment on above: Primary hypertension (Primary Dx); Fatigue, unspecified type; Erectile dysfunction, unspecified erectile dysfunction type; Dementia in other diseases classified elsewhere, mild, with mood disturbance (HCC); Prostate cancer screening Start: 12-08-2022 Refill Gigi Mesa laloell DO Work Phone: [facility] Start: 08-05-2022 End: 08-05-2022 ambulatory [facility] Start: 08-01-2022 End: 08-01-2022 Office outpatient visit 25 minutes Gigi George DO Work Phone: [facility] Comment on above: Primary hypertension (Primary Dx); Fatigue, unspecified type; Senile dementia, uncomplicated (HCC); Erectile dysfunction, unspecified erectile dysfunction type; At low risk for fall; Prostate cancer screening Start: 07-08-2022 Refill Gigiroberto carlos Valdivia Bonita farr DO Work Phone: [facility] Comment on above: Primary hypertension Start: 07-02-2022 End: 07-02-2022 ambulatory [facility] Start: 06-29-2022 Refill Fazal syed MD Work Phone: [facility] Comment on above: Medication Refill Start: 03-28-2022 Refill Fazal syed MD Work Phone: [facility] Comment on above: Medication Refill Start: 01-16-2022 End: 01-16-2022 Office outpatient visit 15 minutes Gigi George DO Work Phone: [facility] Comment on above: Primary hypertension (Primary Dx); Erectile dysfunction, unspecified erectile dysfunction type; Screen for colon cancer Start: 07-11-2021 End: 07-11-2021 Office outpatient visit 25 minutes Gigi George DO Work Phone: [facility] Comment on above: Primary hypertension (Primary Dx); Erectile dysfunction, unspecified erectile dysfunction type; Prostate cancer screening; Senile dementia, uncomplicated (HCC) Start: 03-27-2021 End: 03-27-2021 Office outpatient new 45 minutes Dayana Stahl MD Work Phone: [facility] Comment on above: Cerebrovascular acci dent (CVA), unspecified mechanism (HCC); Right bundle branch block; Abnormal ECG Start: 03-14-2021 End: 03-14-2021 Office outpatient new 30 minutes Gigi George DO Work Phone: [facility] Comment on above: Primary hypertension (Primary Dx); Erectile dysfunction, unspecified erectile dysfunction type Start: 02-07-2021 End: 02-08-2021 ambulatory [facility] Start: 10-09-2020 End: 10-09-2020 Subsequent hospital visit by physician Gokul Morris MD Work Phone: [facility] EEG Comment on above: Arrived Start: 08-13-2020 End: 08-13-2020 Subsequent hospital visit by physician William Galvan Work Phone: [facility] Comment on above: Arrived Start: 08-09-2020 End: 08-09-2020 ambulatory [facility] Start: 07-27-2020 End: 07-27-2020 Orders Only [facility] Comment on above: NATASHA (obstructive sle ep apnea) (Primary Dx) Start: 06-11-2020 End: 06-11-2020 Orders Only Shanta Canosid Miguel Work Phone: [facility] Start: 05-17-2020 End: 05-17-2020 Transcribe Orders [facility] Comment on above: NATASHA (obstructive sle ep apnea) (Primary Dx) Start: 08-22-2019 End: 08-22-2019 Patient encounter procedure Everardo Heath Work Phone: [facility] Comment on above: Xanthoma (Primary Dx ) Start: 07-11-2019 End: 07-11-2019 Office outpatient visit 15 minutes Everardo Heath Work Phone: [facility] Comment on above: Sarcoma of face (HCC ) (Primary Dx) Start: 07-05-2019 End: 07-05-2019 Subsequent hospital visit by physician Mika Kim Work Phone: [facility] Start: 06-17-2019 End: 06-17-2019 Office outpatient new 45 minutes Everardo Heath Work Phone: [facility] Comment on above: Sarcoma of face (HCC ) Start: 05-27-2019 End: 05-27-2019 Subsequent hospital visit by physician Dayana Stahl Work Phone: [facility] MRI Comment on above: Senile dementia, unc omplicated (HCC) Start: 06-09-2018 Patient encounter procedure Jeremy Emery Facility:[facility] Start: 06-09-2018 End: 06-09-2018 Subsequent hospital visit by physician Jeremy Emery Work Phone: [facility] Start: 04-02-2018 Patient encounter procedure Jeremy Emery Facility:[facility] Procedures Date Procedure Procedure Detail Performing Clinician Start: 08-12-2023 Comprehensive metabolic panel Gigi Colón DO Work Phone: Start: 08-12-2023 Lipid panel Gigi George DO Work Phone: Start: 08-12-2023 Adult depression screening assessment Gigi Doris EDMONDS Work Phone: Start: 08-01-2022 Comprehensive metabolic panel Gigi Dal fredy George DO Work Phone: Start: 08-01-2022 Lipid panel Gigi Mic George DO Work Phone: Start: 08-01-2022 Adult depression screening assessment Gigi George DO Work Phone: Start: 07-11-2021 Adult depression screening assessment Gigi George DO Work Phone: Start: 03-14-2021 Adult depression screening assessment Gigi George DO Work Phone: Start: 10-09-2020 Electroencephalogram w/rec awake&drowsy Gokul Morris MD Work Phone: Start: 07-05-2019 End: 07-05-2019 EXCISION MASS HEAD/NECK Mika Kim Work Phone: Start: 07-04-2019 SCAN OTHER ORDERS Provider Not In System Start: 05-27-2019 Mri brain brain stem w/o w/contrast material Dayana Stahl Work Phone: Start: 06-09-2018 Complete blood count with white cell differential, manual Jeremy Emery Work Phone: Plan of Treatment Date Care Activity Detail Author Start: 07-21-2026 Prostate specific antigen measurement PSA Level [facility] Start: 01-18-2026 Medicare Wellness Visit Medicare Wellness Visit [facility] Start: 01-17-2026 Fall risk assessment Falls Risk Assessment [facility] Start: 08-11-2025 Prostate specific antigen measurement PSA Level [facility] Start: 07-21-2025 Depression screening using PHQ-9 (Patient Health Questionnaire 9) score Depression Screening/Follow-Up (PHQ-2/9) [facility] Start: 07-20-2025 Fall risk assessment Falls Risk Assessment [facility] Start: 07-03-2025 End: 07-03-2025 Patient encounter procedure 07/03/2025 4:15 PM EST Office Visit [facility] [address] [place] [address] Gigi George DO [address] [place] [address] [facility] Start: 02-06-2025 Screening for malignant neoplasm of colon [facility] Start: 01-18-2025 End: 01-18-2025 Patient encounter procedure 01/18/2025 4:00 PM EDT Office Visit [facility] [address] [place] [address] Gigi George DO [address] [place] [address] [facility] Start: 01-02-2025 COVID-19 Vaccine ( season) COVID-19 Vaccine ( season) [facility] Start: 01-02-2025 Influenza vaccination Influenza Vaccine (#1) [facility] Start: 08-11-2024 Depression screening using PHQ-9 (Patient Health Questionnaire 9) score [facility] Start: 08-11-2024 End: 08-11-2024 Patient encounter procedure 08/11/2024 7:30 AM EDT Office Visit [facility] [address] [place] [address] Gigi George DO [address] [place] [address] [facility] Start: 08-01-2024 Prostate specific antigen measurement PSA Level [facility] Start: 07-21-2024 End: 07-21-2024 Patient encounter procedure 07/21/2024 7:45 AM EDT Office Visit [facility] [address] [place] [address] Gigi George DO [address] [place] [address] [facility] Start: 02-18-2024 End: 02-18-2024 Patient encounter procedure 02/18/2024 7:30 AM EDT Office Visit [facility] [address] [place] [address] Gigi George DO [address] [place] [address] [facility] Start: 01-03-2024 COVID-19 Vaccine ( season) COVID-19 Vaccine () [facility] Start: 01-03-2024 COVID-19 Vaccine ( season) COVID-19 Vaccine ( season) [facility] Start: 01-03-2024 Influenza vaccination [facility] Start: 08-02-2023 Depression screening using PHQ-9 (Patient Health Questionnaire 9) score Depression Screening (PHQ-2/9) [facility] Start: 07-31-2023 Prostate specific antigen measurement PSA Level [facility] Start: 07-26-2023 Fall risk assessment Falls Risk Assessment [facility] Start: 05-26-2023 Tetanus vaccination [facility] Start: 02-09-2023 End: 02-09-2023 Patient encounter procedure 02/09/2023 7:45 AM EDT Office Visit [facility] [address] [place] [address] Gigi George DO [address] [place] [address] [facility] Start: 01-02-2023 COVID-19 Vaccine () COVID-19 Vaccine () [facility] Start: 01-02-2023 Influenza vaccination Sequential Influenza Vaccine (#1) [facility] Start: 08-01-2022 End: 08-01-2022 Patient encounter procedure 08/01/2022 Office Visit Primary Care Gigi George DO [address] [place] [address] [facility] Start: 07-23-2022 End: 07-23-2022 Patient encounter procedure 07/23/2022 Office Visit Primary Care Gigi George, [address] [place] [address] [facility] Start: 07-11-2022 Depression screening using PHQ-9 (Patient Health Questionnaire 9) score Depression Screening (PHQ-2/9) [facility] Start: 03-14-2022 Depression screening using PHQ-9 (Patient Health Questionnaire 9) score Depression Screening (PHQ-2/9) [facility] Start: 01-16-2022 End: 01-16-2022 Patient encounter procedure 01/16/2022 Office Visit Primary Care Gigi George DO [address] [place] [address] [facility] Start: 01-02-2022 Influenza vaccination Sequential Influenza Vaccine (#1) [facility] Start: 07-11-2021 End: 07-11-2021 Patient encounter procedure 07/11/2021 Office Visit Primary Care Gigi George DO [address] [place] [address] [facility] Start: 04-05-2021 End: 04-05-2021 Patient encounter procedure 04/05/2021 Appointment Cardiology Fazal Knapp MD [address] [address] [facility] Start: 04-05-2021 End: 04-05-2021 Patient encounter procedure 04/05/2021 Appointment Cardiology Fazal Knapp MD [address] [address] [facility] Start: 03-29-2021 End: 03-29-2021 Patient encounter procedure 03/29/2021 Appointment Cardiology Fazal Knapp MD [address] [address] [facility] Start: 03-29-2021 Subsequent hospital visit by physician 03/29/2021 Hospital Encounter Cardiology Fazal Knapp MD [address] [address] Arrived [facility] Comment on above: Arrived Start: 03-27-2021 End: 03-27-2021 Patient encounter procedure 03/27/2021 Office Visit Cardiology Dayana Stahl MD [facility] [address] [address] Fazal Knapp MD [address] [address] [facility] Start: 01-02-2021 Influenza vaccination [facility] Start: 10-02-2020 COVID-19 Vaccine (3 - Moderna series) COVID-19 Vaccine (3 - Moderna series) [facility] Start: 09-04-2020 COVID-19 Vaccine (3 - Moderna risk 4-dose series) COVID-19 Vaccine (3 - Moderna risk 4-dose series) [facility] Start: 09-04-2020 COVID-19 Vaccine (3 - Moderna risk series) COVID-19 Vaccine (3 - Moderna risk series) [facility] Start: 08-13-2020 End: 08-13-2020 Appointment 08/13/2020 Appointment Sleep Medicine William Galvan MD [address] [place] [address] [phone] [facility] Start: 08-09-2020 End: 08-09-2020 Office Visit 08/09/2020 Office Visit Lab William Galvan MD [address] [place] [address] [phone] [facility] Start: 08-07-2020 COVID-19 Vaccine (2 - Moderna 2-dose series) COVID-19 Vaccine (2 - Moderna 2-dose series) [facility] Start: 08-07-2020 End: 08-07-2020 Immunization 08/07/2020 Immunization Primary Care [facility] Start: 01-03-2020 Influenza vaccination given Sequential Influenza Vaccine (#1) [facility] Start: 08-22-2019 End: 08-22-2019 Office Visit 08/22/2019 Office Visit Oncology Everardo Heath Jr., MD [address] [place] [address] [phone] [facility] Start: 07-11-2019 End: 07-11-2019 Office Visit 07/11/2019 Office Visit Oncology Everardo Heath Jr., MD [address] [place] [address] [phone] [facility] Start: 2019 Fall risk assessment Falls Risk Assessment [facility] Start: 2019 Pneumococcal vaccination Pneumococcal Vaccine Age 65+ (1 of 2 - PCV13) [facility] Start: 2019 Pneumococcal Vaccine: Age 65+ (1 - PCV) Pneumococcal Vaccine: Age 65+ (1 - PCV) [facility] Start: 01-02-2019 Influenza vaccination given SEQUENTIAL INFLUENZA VACCINE (#1) [facility] Start: 2014 Respiratory Syncytial Virus Immunization: Risk, 60-74 Risk, or 75+ (1 - Risk 60-74 years 1-dose series) Respiratory Syncytial Virus Immunization: Risk, 60-74 Risk, or 75+ (1 - Risk 60-74 years 1-dose series) [facility] Start: 2004 Administration of herpes zoster vaccine Zoster Vaccines (1 of 2) [facility] Start: 2004 Screening for malignant neoplasm of colon [facility] Start: 1973 Administration of herpes zoster vaccine Zoster Vaccines (1 of 2) [facility] Start: 1973 Pneumococcal Vaccine: Age 50+ (1 of 2 - PCV) Pneumococcal Vaccine: Age 50+ (1 of 2 - PCV) [facility] Start: 1973 Pneumococcal Vaccine: Age 65+ (1 of 2 - PCV) Pneumococcal Vaccine: Age 65+ (1 of 2 - PCV) [facility] Start: 1972 Hepatitis C antibody, confirmatory test Hepatitis C Screening [facility] Start: 1972 Hepatitis C screening Hepatitis C Screening [facility] Start: 1970 COVID-19 Vaccine (1 of 2) COVID-19 Vaccine (1 of 2) [facility] Start: 1969 HIV screening HIV Screening [facility] Start: 1966 Adolescent depression screening assessment Depression Screening (PHQ9) [facility] Start: 1966 Depression screening using PHQ-9 (Patient Health Questionnaire 9) score Depression Screening (PHQ9) [facility] Start: 1960 Pneumococcal Vaccine: Age 65+ (1 - PCV) Pneumococcal Vaccine: Age 65+ (1 - PCV) [facility] Start: 1960 Pneumococcal Vaccine: Age 65+ (1 of 2 - PCV) Pneumococcal Vaccine: Age 65+ (1 of 2 - PCV) [facility] Start: 1960 Pneumococcal Vaccine: Age 65+ (1 of 4 - PCV13) Pneumococcal Vaccine: Age 65+ (1 of 4 - PCV13) [facility] Start: 1957 History and physical examination, annual for health maintenance Wellness Visit [facility] Start: 1957 Medicare Wellness Visit Medicare Wellness Visit [facility] Start: 1954 Fall risk assessment Falls Risk Assessment [facility] Start: 1954 Hepatitis C antibody, confirmatory test HEPATITIS C SCREENING [facility] Start: 1954 Prostate specific antigen measurement PSA Level [facility] Start: 1954 Screening for malignant neoplasm of colon [facility] End: 03-28-2022 Cardiac event recording Cardiac event monitor Cardiac Services Routine Cerebrovascular accident (CVA), unspecified mechanism (HCC) Right bundle branch block Abnormal ECG 1 Occurrences starting 03/27/2021 until 03/28/2022 [facility] Comment on above: 1 Occurrences starting 03/27/2021 until 03/28/2022 End: 05-27-2022 Carotid artery doppler assessment Ultrasound doppler carotid Vascular Ultrasound Routine Cerebrovascular accident (CVA), unspecified mechanism (HCC) 1 Occurrences starting 03/27/2021 until 05/27/2022 [facility] Comment on above: 1 Occurrences starting 03/27/2021 until 05/27/2022 Cologuard Cologuard Lab Ro utine Screen for colon cancer Ordered: 01/16/2022 [facility] Work Phone: Comment on above: Ordered: 01/16/2022 Cologuard Cologuard Lab Ro utine Screen for colon cancer Ordered: 01/18/2025 [facility] Work Phone: Comment on above: Ordered: 01/18/2025 Complete blood count with white cell differential, automated CBC Auto Differential Lab Panel Routine Fatigue, unspecified type Ordered: 08/01/2022 [facility] Comment on above: Ordered: 08/01/2022 Complete blood count with white cell differential, automated CBC Auto Differential Lab Panel Routine Primary hypertension Ordered: 08/12/2023 [facility] Comment on above: Ordered: 08/12/2023 End: 08-02-2023 Complete blood count with white cell differential, manual CBC and Differential Lab Routine Fatigue, unspecified type 1 Occurrences starting 08/01/2022 until 08/02/2023 [facility] Comment on above: 1 Occurrences starting 08/01/2022 until 08/02/2023 End: 08-11-2024 Complete blood count with white cell differential, manual CBC and Differential Lab Routine Primary hypertension 1 Occurrences starting 08/12/2023 until 08/11/2024 [facility] Comment on above: 1 Occurrences starting 08/12/2023 until 08/11/2024 End: 07-11-2022 Comprehensive metabolic 2000 panel - Serum or Plasma Comprehensive Metabolic Panel Lab Routine Primary hypertension 1 Occurrences starting 07/11/2021 until 07/11/2022 [facility] Work Phone: Comment on above: 1 Occurrences starting 07/11/2021 until 07/11/2022 End: 08-02-2023 Comprehensive metabolic 2000 panel - Serum or Plasma Comprehensive Metabolic Panel Lab Routine Primary hypertension 1 Occurrences starting 08/01/2022 until 08/02/2023 [facility] Work Phone: Comment on above: 1 Occurrences starting 08/01/2022 until 08/02/2023 End: 08-11-2024 Comprehensive metabolic 2000 panel - Serum or Plasma Comprehensive Metabolic Panel Lab Routine Primary hypertension 1 Occurrences starting 08/12/2023 until 08/11/2024 [facility] Work Phone: Comment on above: 1 Occurrences starting 08/12/2023 until 08/11/2024 Comprehensive metabo lic 2000 panel - Serum or Plasma Comprehensive Metabolic Panel Lab Routine Primary hypertension 07/21/2024 8:45 AM EDT [facility] Work Phone: End: 07-27-2021 Covid-19/Influenza Order Algorithm : COVID-19 Lab Test Only (OP in UTM) Covid-19/Influenza Order Algorithm : COVID-19 Lab Test Only (OP in UTM) Microbiology Routine NATASHA (obstructive sleep apnea) 1 Occurrences starting 07/27/2020 until 07/27/2021 [facility] Comment on above: 1 Occurrences starting 07/27/2020 until 07/27/2021 End: 03-28-2022 Echocardiography Echocardiogram complete Echocardiography Routine Abnormal ECG 1 Occurrences starting 03/27/2021 until 03/28/2022 [facility] Comment on above: 1 Occurrences starting 03/27/2021 until 03/28/2022 End: 07-11-2022 Lipid 1996 panel - Serum or Plasma Lipid Panel Lab Routine Primary hypertension 1 Occurrences starting 07/11/2021 until 07/11/2022 [facility] Comment on above: 1 Occurrences starting 07/11/2021 until 07/11/2022 End: 08-02-2023 Lipid 1996 panel - Serum or Plasma Lipid Panel Lab Routine Primary hypertension 1 Occurrences starting 08/01/2022 until 08/02/2023 [facility] Comment on above: 1 Occurrences starting 08/01/2022 until 08/02/2023 End: 08-11-2024 Lipid 1996 panel - Serum or Plasma Lipid Panel Lab Routine Primary hypertension 1 Occurrences starting 08/12/2023 until 08/11/2024 [facility] Comment on above: 1 Occurrences starting 08/12/2023 until 08/11/2024 Lipid 1996 panel - S oziel or Plasma Lipid Panel Lab Routine Hypercholesterolemia 07/21/2024 8:45 AM EDT [facility] MR Brain With And Without Contrast MR Brain With And Without Contrast Imaging Routine Senile dementia, uncomplicated (HCC) 05/27/2019 4:51 PM EST [facility] Procedure on tissue specimen [facility] Comment on above: Release Upon Ordering for 1 Occurrences starting 07/05/2019, 1 completed End: 07-11-2022 Prostate specific Ag [Mass/volume] in Serum or Plasma PSA, Screen Lab Routine Prostate cancer screening 1 Occurrences starting 07/11/2021 until 07/11/2022 [facility] Comment on above: 1 Occurrences starting 07/11/2021 until 07/11/2022 End: 08-02-2023 Prostate specific Ag [Mass/volume] in Serum or Plasma PSA, Screen Lab Routine Prostate cancer screening 1 Occurrences starting 08/01/2022 until 08/02/2023 [facility] Comment on above: 1 Occurrences starting 08/01/2022 until 08/02/2023 End: 08-11-2024 Prostate specific Ag [Mass/volume] in Serum or Plasma PSA, Screen Lab Routine Prostate cancer screening 1 Occurrences starting 08/12/2023 until 08/11/2024 [facility] Comment on above: 1 Occurrences starting 08/12/2023 until 08/11/2024 Prostate specific Ag [Mass/volume] in Serum or Plasma PSA, Screen Lab Routine Prostate cancer screening 07/21/2024 8:45 AM EDT [facility] End: 03-28-2022 Radionuclide myocardial perfusion study NM Myocardial Perfusion Multiple SPECT Imaging Routine Abnormal ECG 1 Occurrences starting 03/27/2021 until 03/28/2022 [facility] Work Phone: Comment on above: 1 Occurrences starting 03/27/2021 until 03/28/2022 End: 08-02-2023 Thyrotropin [Units/volume] in Serum or Plasma TSH with Reflex Free T4 Lab Routine Fatigue, unspecified type 1 Occurrences starting 08/01/2022 until 08/02/2023 [facility] Comment on above: 1 Occurrences starting 08/01/2022 until 08/02/2023 End: 08-11-2024 Thyrotropin [Units/volume] in Serum or Plasma TSH with Reflex Free T4 Lab Routine Fatigue, unspecified type 1 Occurrences starting 08/12/2023 until 08/11/2024 [facility] Comment on above: 1 Occurrences starting 08/12/2023 until 08/11/2024 Immunizations Immunization Date Immunization Notes Care Provider Fay brown 02-15-2024 influenza virus vacc ine, unspecified formulation Gigi George DO Work Phone: [facility] 08-07-2020 Moderna SARS-CoV-2 Vaccination William Galvan [facility] 07-10-2020 Moderna SARS-CoV-2 Vaccination Mark Venegas [facility] 05-26-2013 tetanus toxoid, redu kristi diphtheria toxoid, and acellular pertussis vaccine, adsorbed Gigi George DO Work Phone: [facility] Payers Date Payer Category Payer Private Health Insurance [id number] 2024 Self-pay 2022 Medicare [id number] 2019 Medicare MEDICARE MEDICAR E PART A [id number] 2019-Present [place] [id number] 2019 Medicare [id number] 2019 Medicare [id number] 2019 Private Health Insurance CIGNA CIGNA PPO/EPO/FUNDAMENTAL CARE xxxxxxxxxxx 2019-Present xxxxxxxxxxx [id number] 2019 Private Health Insurance [id number] 2011 Managed Care (unspecified) [id number] 2011 Private Health Insurance [id number] 2011 Private Health Insurance [id number] 2000 Private Health Insurance [id number] 1954 Unknown [id number] 1954 Unknown [id number] 1954 Unknown [id number] 903 1954 Unknown [id number] 903 1954 Unknown [id number] 903 1954 Unknown [id number] 903 1954 Unknown [id number] 903 Unknown [facility] xxxxxxxxx Effective for all dates xxxxxxxxx [id number] Unknown [id number] 462 Unknown [id number] Social History Date Type Detail Facility Start: 06-17-2019 End: 08-01-2022 Tobacco smoking status NHIS Never smoker [facility] Start: 06-17-2019 End: 08-12-2023 Alcohol intake Lifetime non-drinker (finding) [facility] Start: 06-17-2019 End: 08-22-2019 History SDOH Alcohol Frequency 1 [facility] Start: 1955 Sex Assigned At Not on file [facility] Start: 07-01-2021 End: 07-25-2022 Exposure to SARS-CoV-2 (event) Not sure [facility] Start: 08-22-2019 End: 08-01-2022 Tobacco use and exposure Never used [facility] Exposure to SARS-CoV -2 (event) Unable to assess [facility] Start: 06-17-2019 End: 07-21-2024 History of Social function [facility] Start: 06-17-2019 End: 07-21-2024 Alcohol Use Disorder Identification Test - Consumption [AUDIT-C] [facility] Frequency of Alcohol Consumption Never [facility] Start: 07-05-2019 Gender identity Identifies as male gender (finding) [facility] Start: 07-10-2020 Sexual orientation Heterosexual (fin ding) [facility] How hard is it for y ou to pay for the very basics like food, housing, medical care, and heating Not very hard [facility] (I/We) worried wheth er (my/our) food would run out before (I/we) got money to buy more. Never true [facility] Start: 02-18-2024 End: 01-18-2025 Alcoholic beverage intake Current drinker of alcohol (finding) [facility] Clinical Notes 03-14-2021 to 01-18-2025 Gigi George DO - 01/18/2025 4:20 PM EDTBWinnie farnsworth CMA - 01/18/2025 4:03 PM EDTPatient InstructionsCarPricila buck - 01/16/2025 12:31 PM EDTPatient InstructionsPatient Instructions Note Date & Type Note Facility 01-18-2025 History of Present illness Narrative Images from the original note were not included. [facility] Falls Evaluation LOW Falls Risk Evaluation: [facility] Falls Risk - 01/18/25 1610 Additional Assessments BP 100/60 Pulse 60 Patient Position Sitting Falls Assessment and Plan: Lexy has been evaluated for his risk of falling and is considered LOW risk. Patient given Home Safety Checklist, Postural Hypotension Brochure, and Stay Independent Brochure in AVS. Referred to a community based program such as Stepping On, James Chi, or Matter of Balance and provided information about each. Patient is not currently on Vit D. New Medications ordered: None Additional tests ordered: None Repeat fall risk assessment in 12 months.Subjective: Lexy Beverly is a 69 y.o. male here for a Medicare Annual Wellness Visit. HPI 69 YO WITH DEMENTIA DID GREAT IN [place] HERE FOR MEDICARE WELLNESS HERE WITH CALLIE. HX OF HYPERTENSION/DEMENTIAL HLD,MILD ASTHMA MEMORY MUCH BETTER HERE THAN [place]. Review of Systems Constitutional: Negative for chills and fever. Respiratory: Positive for shortness of breath (STABLE ON MEDS). Cardiovascular: Negative. Gastrointestinal: Negative. Genitourinary: Negative. Musculoskeletal: Negative. Psychiatric/Behavioral: STABLE ON MEDS Reviewed by Provider: Care Team Patient Care Team: Gigi George DO as PCP - General (Family Medicine) William Galvan MD as Consulting Physician (Pulmonology) Dayana Stahl MD as Consulting Physician (Neurology) Td Ivan PA-C as Physician [employer] (Physician [employer]) Ck Suarez MD as Covering Provider (Internal Medicine) Pharmacy / Equipment Co. (DME) [id number] [address] AT [facility] OF [facility] [address] [place] [id number] Medicare Risk Assessment Do you have an Advanced Directive (Living Will and/or Durable Power of Plant Operator Control Room Operator for Health Care)? If not, would you like more information about Advanced Directives?: (Patient-Rptd) Yes What is your exercise level?: (Patient-Rptd) Light (like stretching/slow walking) What is your diet?: (Patient-Rptd) Regular Can you prepare your own meals?: (Patient-Rptd) Yes Do you have trouble with finding transportation?: (Patient-Rptd) No Because of any health problems, do you need the help of another person with your personal care needs? (For example, eating, bathing, dressing, or getting around the house.): (Patient-Rptd) No Does your home have any of the following?: (Patient-Rptd) None of the above Does your home have grab bars in bathrooms or handrails on stairs and steps?: (Patient-Rptd) Both grab bars in the bathroom and Handrails on the stairs During the past four weeks, how would you rate your health in general?: (Patient-Rptd) Very Good Whether or not you use a hearing aid, do you think you have a hearing problem or do others think you have a hearing problem?: (!) (Patient-Rptd) Yes Whether or not you use glasses or contacts, do you have difficulty driving, watching television, reading, or doing any of your daily activities because of your eyesight?: (Patient-Rptd) No In the past six months, have you had an unexplained weight loss of 10 pounds or more?: (Patient-Rptd) No Do you take your medications as prescribed?: (Patient-Rptd) I do not miss doses of my medications During the past four weeks, how much have you been bothered by emotional problems such as feeling anxious, depressed, irritable, sad, or downhearted and blue?: (Patient-Rptd) Slightly During the past four weeks, has your physical and emotional health limited your social activites with family, friends, neighbors, or groups? : (Patient-Rptd) Not at all Provider/Supplier Name and Specialty: SLEEP-DR GALVAN, NEUROLOGY-DR STAHL, DERMATOLOGY, PCP-DR GEORGE Falls Risk Assessment Is Patient Ambulatory?: (Patient-Rptd) Y Fell in past year: (Patient-Rptd) 0 (No) Unsteady when walks: (Patient-Rptd) 0 (No) Worried about falling: (Patient-Rptd) 0 (No) Advised to use cane/walker?: (Patient-Rptd) 0 (No) Holds onto furniture/thomas: (Patient-Rptd) 0 (No) Uses hands to stand up from a chair: (Patient-Rptd) 0 (No) Trouble stepping onto curb: (Patient-Rptd) 0 (No) Rushes to toilet: (Patient-Rptd) 0 (No) Lost feeling in feet: (Patient-Rptd) 0 (No) Medicine makes me light-headed: (Patient-Rptd) 0 (No) Medicine for sleep or mood: (Patient-Rptd) 1 (Yes) Often feel sad/depressed: (Patient-Rptd) 0 (No) Patient Self Risk Assessment Score: (Patient-Rptd) 1 Have you had your vision checked in the past 12 months?: (Patient-Rptd) No Medicare Mini Cog Step 1: Three Word Registration Version Used: Version 1: Banana, [place], Chair Step 2: Clock Drawing Step 2 score: Normal clock - 2 points Clock has all numbers placed in the correct sequence & position (e.g., 12, 3, 6 and 9 are in anchor positions) with no missing or duplicate numbers. Hands are pointing to the 11 & 2 (11:10). Hand length is not scored. Step 3: Three Word Recall Step 3: Three Word Recall Score: 2 Words Recalled Total score = Word Recall score + Clock Draw score A cut point of <3 on the Mini-Cog has been validated for dementia screening, but many individuals with clinically meaningful cognitive impairment will score higher. A cut point of <4 may indicate a need for further evaluation of cognitive status.: 4 5-Year Plan: Health Maintenance Topic Date Due Medicare Wellness Visit Never done Hepatitis C Screening Never done Pneumococcal Vaccine: Age 50+ (1 of 2 - PCV) Never done Zoster Vaccines (1 of 2) Never done Respiratory Syncytial Virus Immunization: Risk, 60-74 Risk, or 75+ (1 - Risk 60-74 years 1-dose series) Never done Tetanus: Every 10yrs 05/26/2023 Influenza Vaccine (1) Never done COVID-19 Vaccine (3 - 2024- season) 2025 Colorectal Cancer Screening/Monitoring 02/06/2025 Depression Screening/Follow-Up (PHQ-2/9) 07/21/2025 Falls Risk Assessment 01/17/2026 PSA Level 07/21/2026 Immunization History Administered Date(s) Administered Moderna SARS-CoV-2 Vaccination 07/10/2020, 08/07/2020 Tdap 05/26/2013 Objective: BP 100/60 (BP Location: Left arm, Patient Position: Sitting, BP Cuff Size: Adult) Pulse 60 Temp 97 F (36.1 C) (Oral) Resp 16 Ht 5' 9" Wt 70.5 kg (155 lb 8 oz) SpO2 98% BMI 22.96 kg/m Hearing/Vision Screen No results found. Physical Exam Vitals reviewed. Constitutional: General: He is not in acute distress. HENT: Head: Normocephalic and atraumatic. Right Ear: There is no impacted cerumen. Left Ear: There is no impacted cerumen. Cardiovascular: Rate and Rhythm: Normal rate and regular rhythm. Pulmonary: Effort: Pulmonary effort is normal. Breath sounds: Normal breath sounds. Abdominal: General: Bowel sounds are normal. Tenderness: There is no abdominal tenderness. There is no guarding or rebound. Neurological: Mental Status: He is alert. Mental status is at baseline. Psychiatric: Mood and Affect: Mood normal. Assessment/Plan: Diagnoses and all orders for this visit: Routine general medical examination at a health care facility SHOTS FOR AGE, AREA AGENCY ON AGING , YEARLY EYE, HEARING EVALUATION, COLOGUARD EVERY 3 YRS. LABS EVERY SPRING HERE. 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 At low risk for fall Screen for colon cancer - Cologuard 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 STABLE ON MEDS - levalbuterol (XOPENEX HFA) 45 mcg/actuation inhaler; Inhale 1 (one) puff to 2 (two) puffs every 4 (four) hours as needed for wheezing . Vaccination counseling provided but patient/guardian declined. No follow-ups on file. Patient Instructions (the written plan) and additional handouts provided to the patient with their After Visit Summary. Gigi George DO [place] [phone] Flu- does not get documented in this encounter [facility] 01-18-2025 Instructions Gigi George DO - 01/18/2025 4:20 PM EDT Images from the original note were not included. STEADI Low Risk Patient Instructions: Your Falls Screening today shows that you are at low risk for falls. To further protect yourself from falls and maintain your independence, we recommend: 1. Read through the brochure, What You Can Do to Prevent Falls (from CDC). 2. Go through the brochure, Check for Safety: A Home Fall Prevention Checklist for Older Adults (from [facility]), and make changes as recommended. 3. Join a community falls prevention program: Stepping On, a 7-week evidence based program that teaches balance exercises and fall prevention strategies James Chi for older adults, group exercise that teaches James Chi forms that reduce fall risk (weight shifting, postural alignment and control, and coordinated movements of the arms, legs, head, and trunk) Matter of Balance, an evidence based program designed to reduce the fear of falling and increase activity levels of older adults OR an exercise class for strength and balance. 4. Take your Vitamin D with or without Calcium, as determined by your healthcare provider. 5. Get your vision and hearing checked annually. Falls At Home Each year, thousands of older Americans fall at home. Many of them are seriously injured, and some are disabled. In 2011, nearly 23,000 people over age 65 and 2.4 million were treated in emergency departments because of falls. Falls are often due to hazards that are easy to overlook but easy to fix. This checklist will help you find and fix those hazards in your home. The checklist asks about hazards found in each room of your home. For each hazard, the checklist tells you how to fix the problem. At the end of the checklist, you ll find other tips for preventing falls. FLOORS: Look at the floor in each room. Q: When you walk through a room, do you have to walk around furniture? A. Ask someone to move the furniture so your path is clear Q: Do you have throw rugs on the floor? A. Remove the rugs or use double-sided tape or a non-slip backing so the rugs won t slip. Q: Are there papers, books, towels, shoes, magazines, boxes, blankets, or other objects on the floor? A.distribution center supervisor things that are on the floor. Always keep objects off the floor. Q: Do you have to walk over or around wires or cords (like lamp, telephone, or extension cords)? A. Coil or tape cords and wires next to the wall so you can t trip over them. If needed, have an marine electrician apprentice put in another outlet. STAIRS AND STEPS: Look at the stairs you use both inside and outside your home. Q: Are there papers, shoes, books, or other objects on the stairs? A. distribution center supervisor things on the stairs. Always keep objects off stairs. Q: Are some steps broken or uneven? A. Fix loose or uneven steps. Q: Are you missing a light over the stairway? A. Have an marine electrician apprentice put in an overhead light at the top and bottom of the stairs. Q: Do you have only one light switch for your stairs (only at the top or at the bottom of the stairs)? A. Have an marine electrician apprentice put in a light switch at the top and bottom of the stairs. You can get light switches that glow. Q: Has the stairway light bulb burned out? A. Have a friend or family member change the light bulb. Q: Is the carpet on the steps loose or torn? A. Make sure the carpet is firmly attached to every step, or remove the carpet and attach non-slip rubber treads to the stairs. Q: Are the handrails loose or broken? Is there a handrail on only one side of the stairs? A. Fix loose handrails or put in new ones. Make sure handrails are on both sides of the stairs and are as long as the stairs. KITCHEN: Look at your kitchen and eating area. Q: Are the things you use often on high shelves? A. Move items in your cabinets. Keep things you use often on the lower shelves (about waist level). Q: Is your step stool unsteady? A. If you must use a step stool, get one with a bar to hold on to. Never use a chair as a step stool. BATHROOMS: Look at all your bathrooms. Q: Is the tub or shower floor slippery? A. Put a non-slip rubber mat or self-stick strips on the floor of the tub or shower. Q: Do you need some support when you get in and out of the tub or up from the toilet? A. Have grab bars put in next to and inside the tub and next to the toilet. BEDROOMS: Look at all your bedrooms. Q: Is the light near the bed hard to reach? A. Place a lamp close to the bed where it s easy to reach. Q: Is the path from your bed to the bathroom dark? A. Put in a night-light so you can see where you re walking. Some night-lights go on by themselves after dark. Other Things You Can Do to Prevent Falls Do exercises that improve your balance and make your legs stronger. Exercise also helps you feel better and more confident. Have your doctor or pharmacist look at all the medicines you take, even hpnh-xge-hoqbjka medicines. Some medicines can make you sleepy or dizzy. Have your eyes checked by an eye doctor at least once a year and update your glasses. Get up slowly after you sit or lie down. Wear shoes both inside and outside the house. Avoid going barefoot or wearing slippers. Improve the lighting in your home. Put in brighter light bulbs. Florescent bulbs are bright and cost less to use. It s safest to have uniform lighting in a room. Add lighting to dark areas. Hang lightweight curtains or shades to reduce glare. [place] a contrasting color on the top edge of all steps so you can see the stairs better. For example, use a light color paint on dark wood. To access this brochure online, please visit the CDC website at http://www.cdc.gov/steadi/pdf/jose ck_for_safety_brochure-a.pdf Chair Rise Exercise What it does: Strengthens the muscles in your thighs & buttocks. Goal: To do this exercise without using your hands as you become stronger. How to do it: 1. Sit toward the front of a sturdy chair with your knees bent & feet flat on the floor shoulder-width apart 2. Rest your hands lightly on the seat on either side of you, keeping your back & neck straight & and chest slightly forward. 3. Breathe in slowly. Lean forward & feel your weight on the front of your feet. 4. Breathe out and slowly stand up, using your hands as little as possible. 5. Pause for a full breath in & out. 6. Breathe in as you slowly sit down. Do not let yourself collapse back down into the chair. Rather, control your lowering as much as possible. 7. Breathe out. Repeat 10-15 times. If this number is too hard for you when you first start practicing this exercise, begin with fewer and work up to this number. Rest for a minute & then do a final set of 10-15. For detailed instructions, please visit the CDC website at http://www.cdc.gov/steadi/pdf/uche ir_rise_exercise-a.pdf Thank you for choosing our office for your Medicare Wellness Visit. Below you will find the plans we discussed today for your future medical treatments. Please keep this plan in a visible location so you can refer to it often and let our office know if you have any questions. 5-Year Plan Health Maintenance Topic Date Due Medicare Wellness Visit Never done Hepatitis C Screening Never done Pneumococcal Vaccine: Age 50+ (1 of 2 - PCV) Never done Zoster Vaccines (1 of 2) Never done Respiratory Syncytial Virus Immunization: Risk, 60-74 Risk, or 75+ (1 - Risk 60-74 years 1-dose series) Never done Tetanus: Every 10yrs 05/26/2023 Influenza Vaccine (1) Never done COVID-19 Vaccine ( - 2024- season) 2025 Colorectal Cancer Screening/Monitoring 02/06/2025 Depression Screening/Follow-Up (PHQ-2/9) 07/21/2025 Falls Risk Assessment 01/17/2026 PSA Level 07/21/2026 Learning About Living [place] What is a living will? A living will, also called a declaration, is a legal form. It tells your loved ones and your doctor your wishes when you can't speak for yourself. It's used by the health professionals who will treat you as you near the end of your life or if you get seriously hurt or ill. If you put your wishes in writing, your loved ones and others will know what kind of care you want. They won't need to guess. This can ease your mind and be helpful to others. And you can change or cancel your living will at any time. A living will is not the same as an estate or property will. An estate will explains what you want to happen with your money and property after you . How do you use it? Keep these facts in mind about how a living will is used. Your living will is used only if you can't speak or make decisions for yourself. Most often, one or more doctors must certify that you can't speak or decide for yourself before your living will takes effect. If you get better and can speak for yourself again, you can accept or refuse any treatment. It doesn't matter what you said in your living will. Some states may limit your right to refuse treatment in certain cases. For example, you may need to clearly state in your living will that you don't want artificial hydration and nutrition, such as being fed through a tube. Is a living will a legal document? A living will is a legal document. Each state has its own laws about living [place]. And a living will may be called something else in your state. Here are some things to know about living agu[place]. You don't need an estate attorney to complete a living will. But legal advice can be helpful if your state's laws are unclear. It can also help if your health history is complicated or your loved ones can't agree on what should be in your living will. You can change your living will at any time. Some people find that their wishes about end-of-life care change as their health changes. If you make big changes to your living will, complete a new form. If you move to another state, make sure that your living will is legal in the state where you now live. In most cases, doctors will respect your wishes even if you have a form from a different state. You might use a universal form that has been approved by many states. This kind of form can sometimes be filled out and stored online. Your digital copy will then be available wherever you have a connection to the internet. The doctors and nurses who need to treat you can find it right away. Your state may offer an online registry. This is another place where you can store your living will online. Some states require a living will to be witnessed or notarized. Forms can be notarized by a person called a senior publications specialist, who watches as the form is signed and witnessed. What should you know when you create a living will? Here are some questions to ask yourself as you make your living will. Do you know enough about life support methods that might be used? If not, talk to your doctor so you know what might be done if you can't breathe on your own, your heart stops, or you can't swallow. What things would you still want to be able to do after you receive life-support methods? Would you want to be able to walk? To speak? To eat on your own? To live without the help of machines? Do you want certain sikh practices performed if you become very ill? If you have a choice, where do you want to be cared for? In your home? At a hospital or jail? If you have a choice at the end of your life, where would you prefer to ? At home? In a hospital or jail? Somewhere else? Would you prefer to be buried or cremated? Do you want your organs to be donated after you ? What should you do with your living will? Make sure that your loved ones and your health care agent have copies of your living will (also called a declaration). Give your doctor a copy of your living will. Ask to have it kept as part of your medical record. If you have more than one doctor, make sure that each one has a copy. Put a copy of your living will where it can be easily found. For example, some people may put a copy on their refrigerator door. If you are using a digital copy, be sure your doctor, loved ones, and health care agent know how to find and access it. Where can you learn more? Scan the [employer] code or Log into your personal health record on [email or web address] [email or web address]?mode=crr and enter K356 in the [employer] Library Search box and click the green Search button to learn more about "Learning About Living [place]." Current as of: February 25, 2024 Content Version: 14.5 [employer]. Care instructions adapted under license by your healthcare professional. If you have questions about a medical condition or this instruction, always ask your healthcare professional. [employer] disclaims any warranty or liability for your use of this information. documented in this encounter [facility] 01-16-2025 History of Present illness Narrative Spoke to patient at this time, agreeable to completion of wellness visit at next scheduled appointment. [facility] outreach flowsheets completed with patient and filed. Health Maintenance Due Name Date Due Outreach Comments COLORECTAL SCREEN 02/06/25 Do you have an Advanced Directive (Living Will and/or Durable Power of Plant Operator Control Room Operator for Health Care)? If not, would you like more information about Advanced Directives?: Yes What is your exercise level?: Light (like stretching/slow walking) What is your diet?: Regular Can you prepare your own meals?: Yes Do you have trouble with finding transportation?: No Because of any health problems, do you need the help of another person with your personal care needs? (For example, eating, bathing, dressing, or getting around the house.): No Does your home have any of the following?: None of the above Does your home have grab bars in bathrooms or handrails on stairs and steps?: Both grab bars in the bathroom and Handrails on the stairs During the past four weeks, how would you rate your health in general?: Excellent Whether or not you use a hearing aid, do you think you have a hearing problem or do others think you have a hearing problem?: No Whether or not you use glasses or contacts, do you have difficulty driving, watching television, reading, or doing any of your daily activities because of your eyesight?: No In the past six months, have you had an unexplained weight loss of 10 pounds or more?: No Do you take your medications as prescribed?: I do not miss doses of my medications During the past four weeks, how much have you been bothered by emotional problems such as feeling anxious, depressed, irritable, sad, or downhearted and blue?: Not at all During the past four weeks, has your physical and emotional health limited your social activites with family, friends, neighbors, or groups? : Not at all Provider/Supplier Name and Specialty: SLEEP-DR GALVAN, NEUROLOGY-DR STAHL, DERMATOLOGY, PCP-DR GEORGE Is Patient Ambulatory?: Y Fell in past year: 0 (No) Unsteady when walks: 0 (No) Worried about fallin (No) Advised to use cane/walker?: 0 (No) Holds onto furniture/thomas: 0 (No) Uses hands to stand up from a chair: 0 (No) Trouble stepping onto curb: 0 (No) Rushes to toilet: 1 (Yes) (SOMETIMES) Lost feeling in feet: 0 (No) Medicine makes me light-headed: 1 (Yes) (OCCASIONALLY) Medicine for sleep or mood: 1 (Yes) Often feel sad/depressed: 0 (No) Patient Self Risk Assessment Score: 3 Have you had your vision checked in the past 12 months?: No Pricila Hernandez documented in this encounter [facility] 07-22-2024 Telephone encounter Note LM on named vm with results. [facility] 07-22-2024 Miscellaneous Notes LM on named vm with results. documented in this encounter [facility] 07-22-2024 Note Cmp,lipids,psa stabl e no change in meds/plan AUTHENTICATED BY GIGI GEORGE ON 07/22/2024 14:22:28 [facility] 07-22-2024 History of Present illness Narrative Cmp,lipids,psa stable no change in meds/plan documented in this encounter [facility] 07-21-2024 Evaluation + Plan note Associated Problem(s): Dementia in other diseases classified elsewhere, mild, with mood disturbance (HCC) Seeing neurology today stable on meds [facility] 07-21-2024 Miscellaneous Notes Associated Problem(s): Dementia in other diseases classified elsewhere, mild, with mood disturbance (HCC) Seeing neurology today stable on meds documented in this encounter [facility] 07-21-2024 Note HPI 07/21/2024 dr. Stahl following dementia today here for bp/labs. Going to [place] for 2 weeks for a month here with callie. Tremors and flailing at night. Bp well controlled enalapril,hydrochlorothiazide. Mood good on celexa. I am managing Lexy Beverly for complex chronic condition(s) serving as the focal point for the patient's care for consistency and continuity over time. Lab Results Component Value Date ALBUMIN 4.4 08/12/2023 ALT 21 08/12/2023 AST 26 08/12/2023 BUN 22 08/12/2023 CALCIUM 9.6 08/12/2023 CL 102 08/12/2023 CHOL 277 (H) 08/12/2023 CREATININE 1.27 08/12/2023 GLUCOSE 86 08/12/2023 EXTGLUCOSE 85 04/13/2019 HDL 56 08/12/2023 HCT 42.8 08/12/2023 HGB 14.4 08/12/2023 PLT 201 08/12/2023 K 4.1 08/12/2023 NA 139 08/12/2023 TRIG 93 08/12/2023 WBC 3.49 (L) 08/12/2023 Vitals: 07/21/24 0741 BP: 124/82 Temp: 98.2 degrees F (36.8 degrees C) Pulse: (!) 58 SpO2: 95% PT WEIGHT Weight 07/21/2024 7:41 AM 153 lb 6.4 oz 02/18/2024 7:43 AM 151 lb 3.2 oz 08/12/2023 7:39 AM 151 lb 11.2 oz 02/09/2023 7:56 AM 148 lb 9.6 oz BP Readings from Last 4 Encounters: 07/21/24 124/82 02/18/24 (!) 146/80 08/12/23 (!) 140/90 02/09/23 (!) 150/80 Past Medical History: Diagnosis Date Eczema Hyperlipidemia Hypertension Skin cancer Stroke (HCC) 12/2020 TIA (transient ischemic attack) Past Surgical History: Procedure Laterality Date COSMETIC SURGERY 3 years ago sarcoma CYST REMOVAL scrotal EXCISION LESION HEAD/NECK Left 07/05/2019 Procedure: 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 Goals None Review of Systems Constitutional: Negative for chills, fever and unexpected weight change. HENT: Negative for ear pain, rhinorrhea, sinus pain and voice change. Eyes: Negative for discharge and redness. Respiratory: Negative for apnea, cough, chest tightness and shortness of breath. Cardiovascular: Negative for chest pain and palpitations. Gastrointestinal: Negative for abdominal pain, blood in stool and constipation. Endocrine: Negative for cold intolerance and heat intolerance. Genitourinary: Negative for dysuria and frequency. Musculoskeletal: Negative for joint swelling. Skin: Negative for color change and pallor. Allergic/Immunologic: Negative for food allergies. Neurological: Negative for dizziness, tremors and seizures. Hematological: Negative for adenopathy. Psychiatric/Behavioral: Negative for behavioral problems and sleep disturbance. Physical Exam Vitals reviewed. Constitutional: General: He is not in acute distress. HENT: Head: Normocephalic and atraumatic. Right Ear: There is no impacted cerumen. Left Ear: There is no impacted cerumen. Nose: Nose normal. Mouth/Throat: Mouth: Mucous membranes are moist. Cardiovascular: Rate and Rhythm: Normal rate and regular rhythm. Pulmonary: Effort: Pulmonary effort is normal. Breath sounds: Normal breath sounds. Musculoskeletal: Right lower leg: No edema. Left lower leg: No edema. Skin: General: Skin is warm and dry. Neurological: Mental Status: He is alert. Mental status is at baseline. Psychiatric: Mood and Affect: Mood normal. Diagnoses and all orders for this visit: Diagnoses and all orders for this visit: Primary hypertension cont same stable - Comprehensive Metabolic Panel - enalapril (VASOTEC) 20 MG tablet; Take 1 (one) tablet (20 mg total) by mouth daily . - hydroCHLOROthiazide 12.5 MG tablet; Take 1 (one) tablet (12.5 mg total) by mouth daily . Dementia in other diseases classified elsewhere, mild, with mood disturbance (HCC) stable with meds/seeing dr. stahl Hypercholesterolemia cont same - Lipid Panel - rosuvastatin (CRESTOR) 5 MG tablet; Take 1 (one) tablet (5 mg total) by mouth daily . Prostate cancer screening - PSA, Screen At low risk for fall 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 stable on meds - levalbuterol (XOPENEX HFA) 45 mcg/actuation inhaler; Inhale 1 (one) puff to 2 (two) puffs every 4 (four) hours as needed for wheezing . Other orders - triamcinolone (KENALOG) 0.1 % cream; Apply 1 application. topically 2 (two) times a day as needed . For any new medications prescribed today, patient was educated about indications for the medication, how to take the medication and potential side effects of the medications. 07/21/2024 7:00 AM PHQ-9 Review Little interest or pleasure in doing things 0 Feel (more content not included)... [facility] 07-21-2024 History of Present illness Narrative Images from the original note were not included. HPI 07/21/2024 dr. tSahl following dementia today here for bp/labs. Going to [place] for 2 weeks for a month here with callie. Tremors and flailing at night. Bp well controlled enalapril,hydrochlorothiazide. Mood good on celexa. I am managing Lexy Beverly for complex chronic condition(s) serving as the focal point for the patient's care for consistency and continuity over time. Lab Results Component Value Date ALBUMIN 4.4 08/12/2023 ALT 21 08/12/2023 AST 26 08/12/2023 BUN 22 08/12/2023 CALCIUM 9.6 08/12/2023 CL 102 08/12/2023 CHOL 277 (H) 08/12/2023 CREATININE 1.27 08/12/2023 GLUCOSE 86 08/12/2023 EXTGLUCOSE 85 04/13/2019 HDL 56 08/12/2023 HCT 42.8 08/12/2023 HGB 14.4 08/12/2023 PLT 201 08/12/2023 K 4.1 08/12/2023 NA 139 08/12/2023 TRIG 93 08/12/2023 WBC 3.49 (L) 08/12/2023 Vitals: 07/21/24 0741 BP: 124/82 Temp: 98.2 F (36.8 C) Pulse: (!) 58 SpO2: 95% PT WEIGHT Weight 07/21/2024 7:41 AM 153 lb 6.4 oz 02/18/2024 7:43 AM 151 lb 3.2 oz 08/12/2023 7:39 AM 151 lb 11.2 oz 02/09/2023 7:56 AM 148 lb 9.6 oz BP Readings from Last 4 Encounters: 07/21/24 124/82 02/18/24 (!) 146/80 08/12/23 (!) 140/90 02/09/23 (!) 150/80 Past Medical History: Diagnosis Date Eczema Hyperlipidemia Hypertension Skin cancer Stroke (HCC) 12/2020 TIA (transient ischemic attack) Past Surgical History: Procedure Laterality Date COSMETIC SURGERY 3 years ago sarcoma CYST REMOVAL scrotal EXCISION LESION HEAD/NECK Left 07/05/2019 Procedure: 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 Goals None Review of Systems Constitutional: Negative for chills, fever and unexpected weight change. HENT: Negative for ear pain, rhinorrhea, sinus pain and voice change. Eyes: Negative for discharge and redness. Respiratory: Negative for apnea, cough, chest tightness and shortness of breath. Cardiovascular: Negative for chest pain and palpitations. Gastrointestinal: Negative for abdominal pain, blood in stool and constipation. Endocrine: Negative for cold intolerance and heat intolerance. Genitourinary: Negative for dysuria and frequency. Musculoskeletal: Negative for joint swelling. Skin: Negative for color change and pallor. Allergic/Immunologic: Negative for food allergies. Neurological: Negative for dizziness, tremors and seizures. Hematological: Negative for adenopathy. Psychiatric/Behavioral: Negative for behavioral problems and sleep disturbance. Physical Exam Vitals reviewed. Constitutional: General: He is not in acute distress. HENT: Head: Normocephalic and atraumatic. Right Ear: There is no impacted cerumen. Left Ear: There is no impacted cerumen. Nose: Nose normal. Mouth/Throat: Mouth: Mucous membranes are moist. Cardiovascular: Rate and Rhythm: Normal rate and regular rhythm. Pulmonary: Effort: Pulmonary effort is normal. Breath sounds: Normal breath sounds. Musculoskeletal: Right lower leg: No edema. Left lower leg: No edema. Skin: General: Skin is warm and dry. Neurological: Mental Status: He is alert. Mental status is at baseline. Psychiatric: Mood and Affect: Mood normal. Diagnoses and all orders for this visit: Diagnoses and all orders for this visit: Primary hypertension cont same stable - Comprehensive Metabolic Panel - enalapril (VASOTEC) 20 MG tablet; Take 1 (one) tablet (20 mg total) by mouth daily . - hydroCHLOROthiazide 12.5 MG tablet; Take 1 (one) tablet (12.5 mg total) by mouth daily . Dementia in other diseases classified elsewhere, mild, with mood disturbance (HCC) stable with meds/seeing dr. stahl Hypercholesterolemia cont same - Lipid Panel - rosuvastatin (CRESTOR) 5 MG tablet; Take 1 (one) tablet (5 mg total) by mouth daily . Prostate cancer screening - PSA, Screen At low risk for fall 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 stable on meds - levalbuterol (XOPENEX HFA) 45 mcg/actuation inhaler; Inhale 1 (one) puff to 2 (two) puffs every 4 (four) hours as needed for wheezing . Other orders - triamcinolone (KENALOG) 0.1 % cream; Apply 1 application. topically 2 (two) times a day as needed . For any new medications prescribed today, patient was educated about indications for the medication, how to take the medication and potential side effects of the medications. 07/21/2024 7:00 AM PHQ-9 Review Little interest or pleasure in doing things 0 Feeling down, depressed, or hopeless 0 PHQ-2 Total Score 0 [1] Social History Socioeconomic History Marital status: Tobacco Use Smoking status: Never Smokeless tobacco: Never Vaping Use Vaping status: Never Used Substance and Sexual Activity Alcohol use: Yes Alcohol/week: 1.0 standard drink of alcohol Types: 1 Cans of beer per week Drug use: Never Sexual activity: Not Currently Partners: Female Social Drivers of Health Financial Resource Strain: Low Risk (07/21/2024) Overall Financial Resource Strain (CARDIA) Difficulty of Paying Living Expenses: Not hard at all Food Insecurity: No Food Insecurity (07/21/2024) Hunger Vital Sign Worried About Running Out of Food in the Last Year: Never true Ran Out of Food in the Last Year: Never true Transportation Needs: No Transportation Needs (07/21/2024) PRAPARE - Transportation Lack of Transportation (Medical): No Lack of Transportation (Non-Medical): No [2] Current Outpatient Medications Medication Sig Dispense Refill aspirin 81 MG EC tablet Take 1 (one) tablet (81 mg total) by mouth daily . citalopram (CELEXA) 10 MG tablet TAKE 1 TABLET BY MOUTH EVERY DAY 90 tablet 3 clonazePAM (KLONOPIN) 0.5 MG tablet Take 1 (one) tablet (0.5 mg total) by mouth at bedtime . donepeziL (ARICEPT) 10 MG tablet Take 1 (one) tablet (10 mg total) by mouth nightly . dupilumab (Dupixent Syringe) 300 mg/2 mL Syrg Inject 2 mL (300 mg total) under the skin every 14 (fourteen) days Every other Thursday . enalapril (VASOTEC) 20 MG tablet Take 1 (one) tablet (20 mg total) by mouth daily . 90 tablet 3 glucosamine-chondroitin 500-400 mg tablet Take 1 (one) tablet by mouth 3 (three) times a day Taking 2 times daily- Replenex . hydroCHLOROthiazide 12.5 MG tablet Take 1 (one) tablet (12.5 mg total) by mouth daily . 90 tablet 3 levalbuterol (XOPENEX HFA) 45 mcg/actuation inhaler INHALE 1 (ONE) PUFF TO 2 (TWO) PUFFS EVERY 4 (FOUR) HOURS NEEDED FOR WHEEZING . 15 g 2 melatonin 5 mg cap Take 1 (one) capsule (5 mg total) by mouth daily . memantine (NAMENDA) 10 MG tablet Take 1 (one) tablet (10 mg total) by mouth 2 (two) times a day . multivitamin with minerals tablet Take 1 (one) tablet by mouth daily . rosuvastatin (CRESTOR) 5 MG tablet Take 1 (one) tablet (5 mg total) by mouth daily . 90 tablet 3 tadalafiL 5 MG tablet TAKE 1 TABLET BY MOUTH DAILY NEEDED FOR ERECTILE DYSFUNCTION 30 tablet 1 triamcinolone (KENALOG) 0.1 % cream Apply 1 application. topically 2 (two) times a day as needed . 30 g 1 No current facility-administered medications for this visit. documented in this encounter [facility] 07-21-2024 Instructions Gigi George DO - 07/21/2024 8:20 AM EDT STEADI Low Risk Patient Instructions: Your Falls Screening today shows that you are at low risk for falls. To further protect yourself from falls and maintain your independence, we recommend: 1. Read through the brochure, What You Can Do to Prevent Falls (from [facility]). 2. Go through the brochure, Check for Safety: A Home Fall Prevention Checklist for Older Adults (from [facility]), and make changes as recommended. 3. Join a community falls prevention program: Stepping On, a 7-week evidence based program that teaches balance exercises and fall prevention strategies Jaems Chi for older adults, group exercise that teaches James Chi forms that reduce fall risk (weight shifting, postural alignment and control, and coordinated movements of the arms, legs, head, and trunk) Matter of Balance, an evidence based program designed to reduce the fear of falling and increase activity levels of older adults OR an exercise class for strength and balance. 4. Take your Vitamin D with or without Calcium, as determined by your healthcare provider. 5. Get your vision and hearing checked annually. Falls At Home Each year, thousands of older Americans fall at home. Many of them are seriously injured, and some are disabled. In 2011, nearly 23,000 people over age 65 and 2.4 million were treated in emergency departments because of falls. Falls are often due to hazards that are easy to overlook but easy to fix. This checklist will help you find and fix those hazards in your home. The checklist asks about hazards found in each room of your home. For each hazard, the checklist tells you how to fix the problem. At the end of the checklist, you ll find other tips for preventing falls. FLOORS: Look at the floor in each room. Q: When you walk through a room, do you have to walk around furniture? A. Ask someone to move the furniture so your path is clear Q: Do you have throw rugs on the floor? A. Remove the rugs or use double-sided tape or a non-slip backing so the rugs won t slip. Q: Are there papers, books, towels, shoes, magazines, boxes, blankets, or other objects on the floor? A.distribution center supervisor things that are on the floor. Always keep objects off the floor. Q: Do you have to walk over or around wires or cords (like lamp, telephone, or extension cords)? A. Coil or tape cords and wires next to the wall so you can t trip over them. If needed, have an marine electrician apprentice put in another outlet. STAIRS AND STEPS: Look at the stairs you use both inside and outside your home. Q: Are there papers, shoes, books, or other objects on the stairs? A. distribution center supervisor things on the stairs. Always keep objects off stairs. Q: Are some steps broken or uneven? A. Fix loose or uneven steps. Q: Are you missing a light over the stairway? A. Have an marine electrician apprentice put in an overhead light at the top and bottom of the stairs. Q: Do you have only one light switch for your stairs (only at the top or at the bottom of the stairs)? A. Have an marine electrician apprentice put in a light switch at the top and bottom of the stairs. You can get light switches that glow. Q: Has the stairway light bulb burned out? A. Have a friend or family member change the light bulb. Q: Is the carpet on the steps loose or torn? A. Make sure the carpet is firmly attached to every step, or remove the carpet and attach non-slip rubber treads to the stairs. Q: Are the handrails loose or broken? Is there a handrail on only one side of the stairs? A. Fix loose handrails or put in new ones. Make sure handrails are on both sides of the stairs and are as long as the stairs. KITCHEN: Look at your kitchen and eating area. Q: Are the things you use often on high shelves? A. Move items in your cabinets. Keep things you use often on the lower shelves (about waist level). Q: Is your step stool unsteady? A. If you must use a step stool, get one with a bar to hold on to. Never use a chair as a step stool. BATHROOMS: Look at all your bathrooms. Q: Is the tub or shower floor slippery? A. Put a non-slip rubber mat or self-stick strips on the floor of the tub or shower. Q: Do you need some support when you get in and out of the tub or up from the toilet? A. Have grab bars put in next to and inside the tub and next to the toilet. BEDROOMS: Look at all your bedrooms. Q: Is the light near the bed hard to reach? A. Place a lamp close to the bed where it s easy to reach. Q: Is the path from your bed to the bathroom dark? A. Put in a night-light so you can see where you re walking. Some night-lights go on by themselves after dark. Other Things You Can Do to Prevent Falls Do exercises that improve your balance and make your legs stronger. Exercise also helps you feel better and more confident. Have your doctor or pharmacist look at all the medicines you take, even [id number] medicines. Some medicines can make you sleepy or dizzy. Have your eyes checked by an eye doctor at least once a year and update your glasses. Get up slowly after you sit or lie down. Wear shoes both inside and outside the house. Avoid going barefoot or wearing slippers. Improve the lighting in your home. Put in brighter light bulbs. Florescent bulbs are bright and cost less to use. It s safest to have uniform lighting in a room. Add lighting to dark areas. Hang lightweight curtains or shades to reduce glare. [place] a contrasting color on the top edge of all steps so you can see the stairs better. For example, use a light color paint on dark wood. To access this brochure online, please visit the CDC website at http://www.cdc.gov/steadi/pdf/jose ck_for_safety_brochure-a.pdf Chair Rise Exercise What it does: Strengthens the muscles in your thighs & buttocks. Goal: To do this exercise without using your hands as you become stronger. How to do it: 1. Sit toward the front of a sturdy chair with your knees bent & feet flat on the floor shoulder-width apart 2. Rest your hands lightly on the seat on either side of you, keeping your back & neck straight & and chest slightly forward. 3. Breathe in slowly. Lean forward & feel your weight on the front of your feet. 4. Breathe out and slowly stand up, using your hands as little as possible. 5. Pause for a full breath in & out. 6. Breathe in as you slowly sit down. Do not let yourself collapse back down into the chair. Rather, control your lowering as much as possible. 7. Breathe out. Repeat 10-15 times. If this number is too hard for you when you first start practicing this exercise, begin with fewer and work up to this number. Rest for a minute & then do a final set of 10-15. For detailed instructions, please visit the CDC website at http://www.cdc.gov/steadi/pdf/uche ir_rise_exercise-a.pdf documented in this encounter [facility] 07-06-2024 Telephone encounter Note Received a denial for tadalafil . I called Melina CARL at [address] She said pt p/u script and paid with discount card. [facility] 07-06-2024 Miscellaneous Notes Received a denial for tadalafil . I called Melina CARL at [facility] [address] She said pt p/u script and paid with discount card. documented in this encounter [facility] 02-18-2024 Note HPI Here 02/18/2024 recheck bp with callie. Enalapril, hydrochlorothiazide 12.5 .no new complaints. No cv/resp complaints. Dr. Stahl says is maxed out on dementia suggesting iv infusion. Passing on this for now. Forgets names otherwise stable dementia. I am managing Lexy Beverly for complex chronic condition(s) serving as the focal point for the patient's care for consistency and continuity over time. 68 yo group home fatigue/depression doing well with celexa per , following with dr. Stahl still. Is not taking dr. Knapp's crestor. Difficult concentrating, learning new things. Does better with xopenex than proair requesting it. Only needs as needed . Bp is good at home, always up in doctors office per callie. Gets short of breath with fire smoke and dust and overexertion. Refuses crestor for stroke prevention as dr. Stahl and us wanted. Did great in [place]. Here 08/12/2023 recheck yearly labs, recheck bp. Above notes reviewed and unchanged.just back from another trip to [place]. Did not take bp meds this am.still following dementia with dr. Stahl every 6 months/stable on meds. Not exercising, little fatiguealso sees dr. Galvan for acting out dreams/meds. Dermatology also dr. Bo regularly for skin cancers. Bp stable on enalapril 10mg daily, hydrochlorothiazide 12.5 daily, mood stable on celexa 10mg daily, on clonazepam at night through dr. Ardon, donepezil 10mg daily and namenda [address] Stahl and héctor for excema from dermatology. Vitals: 02/18/24 0743 02/18/24 0756 BP: (!) 150/90 (!) 146/80 Temp: 99.2 degrees F (37.3 degrees C) Pulse: 68 Resp: 14 PT WEIGHT Weight 02/18/2024 7:43 AM 151 lb 3.2 oz 08/12/2023 7:39 AM 151 lb 11.2 oz 02/09/2023 7:56 AM 148 lb 9.6 oz 08/01/2022 7:28 AM 148 lb 3.2 oz BP Readings from Last 4 Encounters: 02/18/24 (!) 146/80 08/12/23 (!) 140/90 02/09/23 (!) 150/80 08/01/22 (!) 146/80 Past Medical History: Diagnosis Date Eczema Hyperlipidemia Hypertension Skin cancer Stroke (HCC) 12/2020 TIA (transient ischemic attack) Past Surgical History: Procedure Laterality Date COSMETIC SURGERY 3 years ago sarcoma CYST REMOVAL scrotal EXCISION LESION HEAD/NECK Left 07/05/2019 Procedure: EXCISION ATYPICAL SARCOMA OF LEFT CHEEK WITH FULL THICKNESS SKIN GRAFT; Surgeon: Mika Kim DO; Location: [facility] [place] OR; Service: Plastics SKIN BIOPSY June 2022 basil cell carcinoma skin cancer surgery Social History Socioeconomic History Marital status: Tobacco Use Smoking status: Never Smokeless tobacco: Never Vaping Use Vaping status: Never Used Substance and Sexual Activity Alcohol use: Yes Alcohol/week: 1.0 standard drink of alcohol Types: 1 Cans of beer per week Drug use: Never Sexual activity: Not Currently Partners: Female Social Determinants of Health Financial Resource Strain: Low Risk (08/12/2023) Overall Financial Resource Strain (CARDIA) Difficulty of Paying Living Expenses: Not hard at all Food Insecurity: No Food Insecurity (08/12/2023) Hunger Vital Sign Worried About Running Out of Food in the Last Year: Never true Ran Out of Food in the Last Year: Never true Transportation Needs: No Transportation Needs (08/12/2023) PRAPARE - Transportation Lack of Transportation (Medical): No Lack of Transportation (Non-Medical): No Family History Problem Relation Age of Onset Lymphoma Mother Skin cancer Mother Hypertension Mother Cancer Mother Stroke Mother Pancreatic cancer Father Cancer Father Heart attack Paternal Uncle ADD / ADHD Son Current Outpatient Medications Medication Sig Dispense Refill aspirin 81 MG EC tablet Take 1 (one) tablet (81 mg total) by mouth daily . citalopram (CELEXA) 10 MG tablet TAKE 1 TABLET BY MOUTH EVERY DAY 90 tablet 3 clonazePAM (KLONOPIN) 0.5 MG tablet Take 1 (one) tablet (0.5 mg total) by mouth at bedtime . donepeziL (ARICEPT) 10 MG tablet Take 1 (one) tablet (10 mg total) by mouth nightly . dupilumab (Dupixent Syringe) 300 mg/2 mL Syrg Inject 2 mL (300 mg total) under the skin every 14 (fourteen) days Every other Thursday . glucosamine-chondroitin 500-400 mg tablet Take 1 (one) tablet by mouth 3 (three) times a day Taking 2 times daily- Replenex . levalbuterol (XOPENEX HFA) 45 mcg/actuation inhaler INHALE 1 (ONE) PUFF TO 2 (TWO) PUFFS EVERY 4 (FOUR) HOURS NEEDED FOR WHEEZING . 15 g 2 melatonin 5 mg cap Take 1 (one) capsule (5 mg total) by mouth daily . memantine (NAMENDA) 10 MG tablet Take 1 (one) tablet (10 mg total) by mouth 2 (two) times a day . multivitamin with minerals tablet Take 1 (one) tablet by mouth daily . rosuvastatin (CRESTOR) 5 MG tablet Take 1 (one) tablet (5 mg total) by mouth daily . 90 tablet 3 triamcinolone (KENALOG) 0.1 % cream Apply 1 application topically 2 (two) times a day as needed . enalapril (VASOTEC) 10 MG tablet Take 1 (one) tablet (10 mg total) by mouth (more content not included)... [facility] 08-12-2023 Evaluation + Plan note Associated Problem(s): Dementia in other diseases classified elsewhere, mild, with mood disturbance (HCC) Stable on meds with neurology follows every [address] Stahl. [facility] 08-12-2023 Miscellaneous Notes Associated Problem(s): Dementia in other diseases classified elsewhere, mild, with mood disturbance (HCC) Stable on meds with neurology follows every [address] Stahl. documented in this encounter [facility] 08-12-2023 History of Present illness Narrative Images from the original note were not included. HPI 68 yo group home fatigue/depression doing well with celexa per , following with dr. Stahl still. Is not taking dr. Knapp's perryor. Difficult concentrating, learning new things. Does better with xopenex than proair requesting it. Only needs as needed . Bp is good at home, always up in doctors office per callie. Gets short of breath with fire smoke and dust and overexertion. Refuses crestor for stroke prevention as dr. Stahl and us wanted. Did great in [place]. Here 08/12/2023 recheck yearly labs, recheck bp. Above notes reviewed and unchanged.just back from another trip to [place]. Did not take bp meds this am.still following dementia with dr. Stahl every 6 months/stable on meds. Not exercising, little fatiguealso sees dr. Galvan for acting out dreams/meds. Dermatology also dr. Bo regularly for skin cancers. Bp stable on enalapril 10mg daily, hydrochlorothiazide 12.5 daily, mood stable on celexa 10mg daily, on clonazepam at night through dr. Ardon, donepezil 10mg daily and namenda [address] Stahl and héctor for excema from dermatology. Vitals: 08/12/23 0739 08/12/23 0743 08/12/23 0758 BP: (!) 152/86 (!) 156/90 (!) 140/90 Temp: 98.7 F (37.1 C) Pulse: 72 Resp: 16 SpO2: 96% PT WEIGHT Weight 08/12/2023 7:39 AM 151 lb 11.2 oz 02/09/2023 7:56 AM 148 lb 9.6 oz 08/01/2022 7:28 AM 148 lb 3.2 oz 01/16/2022 10:32 AM 152 lb 3.2 oz BP Readings from Last 4 Encounters: 08/12/23 (!) 140/90 02/09/23 (!) 150/80 08/01/22 (!) 146/80 01/16/22 128/78 Past Medical History: Diagnosis Date Eczema Hyperlipidemia Hypertension Skin cancer Stroke (HCC) 12/2020 TIA (transient ischemic attack) Past Surgical History: Procedure Laterality Date COSMETIC SURGERY 3 years ago sarcoma CYST REMOVAL scrotal EXCISION LESION HEAD/NECK Left 07/05/2019 Procedure: EXCISION ATYPICAL SARCOMA OF LEFT CHEEK WITH FULL THICKNESS SKIN GRAFT; Surgeon: Mika Kim DO; Location: [facility] [place] OR; Service: Plastics SKIN BIOPSY June 2022 basil cell carcinoma skin cancer surgery Social History Socioeconomic History Marital status: Tobacco Use Smoking status: Never Smokeless tobacco: Never Vaping Use Vaping Use: Never used Substance and Sexual Activity Alcohol use: Never Drug use: Never Sexual activity: Not Currently Partners: Female Social Determinants of Health Financial Resource Strain: Low Risk (08/01/2022) Overall Financial Resource Strain (CARDIA) Difficulty of Paying Living Expenses: Not very hard Food Insecurity: No Food Insecurity (08/01/2022) Hunger Vital Sign Worried About Running Out of Food in the Last Year: Never true Ran Out of Food in the Last Year: Never true Transportation Needs: No Transportation Needs (08/01/2022) PRAPARE - Transportation Lack of Transportation (Medical): No Lack of Transportation (Non-Medical): No Family History Problem Relation Age of Onset Lymphoma Mother Skin cancer Mother Hypertension Mother Cancer Mother Stroke Mother Pancreatic cancer Father Cancer Father Heart attack Paternal Uncle Current Outpatient Medications Medication Sig Dispense Refill aspirin 81 MG EC tablet Take 1 (one) tablet (81 mg total) by mouth daily . citalopram (CELEXA) 10 MG tablet Take 1 (one) tablet (10 mg total) by mouth daily . 90 tablet 3 clonazePAM (KLONOPIN) 0.5 MG tablet Take 1 (one) tablet (0.5 mg total) by mouth at bedtime . donepeziL (ARICEPT) 10 MG tablet Take 1 (one) tablet (10 mg total) by mouth nightly . dupilumab (Dupixent Syringe) 300 mg/2 mL Syrg Inject 2 mL (300 mg total) under the skin every 14 (fourteen) days Every other Thursday . enalapril (VASOTEC) 10 MG tablet Take 1 (one) tablet (10 mg total) by mouth daily . 90 tablet 3 glucosamine-chondroitin 500-400 mg tablet Take 1 (one) tablet by mouth 3 (three) times a day Taking 2 times daily- Replenex . hydroCHLOROthiazide (HYDRODIURIL) 12.5 MG tablet Take 1 (one) tablet (12.5 mg total) by mouth daily . 90 tablet 3 levalbuterol (XOPENEX HFA) 45 mcg/actuation inhaler Inhale 1 (one) puff to 2 (two) puffs every 4 (four) hours as needed for wheezing . 15 g 2 melatonin 5 mg cap Take 1 (one) capsule (5 mg total) by mouth daily . memantine (NAMENDA) 10 MG tablet Take 1 (one) tablet (10 mg total) by mouth 2 (two) times a day . multivitamin with minerals tablet Take 1 (one) tablet by mouth daily . triamcinolone (KENALOG) 0.1 % cream Apply 1 application topically 2 (two) times a day as needed . tadalafiL 5 MG tablet Take 1 (one) tablet (5 mg total) by mouth daily as needed for erectile dysfunction . 30 tablet 1 No current facility-administered medications for this visit. PHQ-9 Depression Screening No documentation. Goals None Review of Systems Constitutional: Positive for fatigue. Respiratory: Negative. Cardiovascular: Negative. Gastrointestinal: Negative. Genitourinary: Negative. Musculoskeletal: Negative. Neurological: Negative. Psychiatric/Behavioral: Positive for dysphoric mood (stable on meds). Physical Exam Vitals reviewed. Constitutional: General: He is not in acute distress. Appearance: He is well-developed. HENT: Head: Normocephalic and atraumatic. Right Ear: External ear normal. Left Ear: External ear normal. Nose: Nose normal. Mouth/Throat: Mouth: Mucous membranes are moist. Eyes: Conjunctiva/sclera: Conjunctivae normal. Cardiovascular: Rate and Rhythm: Normal rate and regular rhythm. Heart sounds: No murmur heard. Pulmonary: Effort: Pulmonary effort is normal. Breath sounds: Normal breath sounds. Musculoskeletal: Cervical back: Neck supple. Right lower leg: No edema. Left lower leg: No edema. Skin: General: Skin is warm. Neurological: Mental Status: He is alert. Mental status is at baseline. Psychiatric: Mood and Affect: Mood normal. Diagnoses and all orders for this visit: Diagnoses and all orders for this visit: Primary hypertension cont same stable, refuses statins. - Comprehensive Metabolic Panel; Future - Lipid Panel; Future - CBC and Differential; Future Fatigue, unspecified type - TSH with Reflex Free T4; Future Erectile dysfunction, unspecified erectile dysfunction type - tadalafiL 5 MG tablet; Take 1 (one) tablet (5 mg total) by mouth daily as needed for erectile dysfunction . Dementia in other diseases classified elsewhere, mild, with mood disturbance (HCC) stable and follows with neurology. Prostate cancer screening - PSA, Screen; Future For any new medications prescribed today, patient was educated about indications for the medication, how to take the medication and potential side effects of the medications. documented in this encounter [facility] 08-01-2022 History of Present illness Narrative Labs drawn from left arm. Patient tolerated well. Images from the original note were not included. HPI 67 yo with group home fatigue/depression per , feels better when walking, going to [place] soon. Following with dr. Stahl. Fatigued, doing fasting labs today. Going to see dr. Mendoza for new lesion left cheek. Vitals: 08/01/22 0728 08/01/22 0748 BP: (!) 148/96 (!) 146/80 Temp: 97.5 F (36.4 C) Pulse: 78 Resp: 16 PT WEIGHT Weight 08/01/2022 148 lb 3.2 oz 01/16/2022 152 lb 3.2 oz 07/11/2021 151 lb 03/27/2021 149 lb BP Readings from Last 4 Encounters: 08/01/22 (!) 146/80 01/16/22 128/78 07/11/21 132/80 04/05/21 (!) 172/94 Past Medical History: Diagnosis Date Eczema Hyperlipidemia Hypertension Skin cancer Stroke (HCC) 12/2020 TIA (transient ischemic attack) Past Surgical History: Procedure Laterality Date COSMETIC SURGERY 3 years ago sarcoma CYST REMOVAL scrotal EXCISION LESION HEAD/NECK Left 07/05/2019 Procedure: EXCISION ATYPICAL SARCOMA OF LEFT CHEEK WITH FULL THICKNESS SKIN GRAFT; Surgeon: Mika Kim DO; Location: [facility] [place] OR; Service: Plastics SKIN BIOPSY June 2022 basil cell carcinoma skin cancer surgery Social History Socioeconomic History Marital status: Tobacco Use Smoking status: Never Smokeless tobacco: Never Vaping Use Vaping status: Never Used Substance and Sexual Activity Alcohol use: Never Drug use: Never Sexual activity: Not Currently Partners: Female Social Determinants of Health Financial Resource Strain: Low Risk (08/01/2022) Overall Financial Resource Strain (CARDIA) Difficulty of Paying Living Expenses: Not very hard Food Insecurity: No Food Insecurity (08/01/2022) Hunger Vital Sign Worried About Running Out of Food in the Last Year: Never true Ran Out of Food in the Last Year: Never true Transportation Needs: No Transportation Needs (08/01/2022) PRAPARE - Transportation Lack of Transportation (Medical): No Lack of Transportation (Non-Medical): No Family History Problem Relation Age of Onset Lymphoma Mother Skin cancer Mother Hypertension Mother Cancer Mother Stroke Mother Pancreatic cancer Father Cancer Father Heart attack Paternal Uncle Current Outpatient Medications Medication Sig Dispense Refill albuterol 90 mcg/actuation inhaler Inhale 1 (one) puff every 4 to 6 hours as needed for shortness of breath . 18 g 3 aspirin 81 MG EC tablet Take 1 (one) tablet (81 mg total) by mouth daily . clonazePAM (KLONOPIN) 0.5 MG tablet Take 1 (one) tablet (0.5 mg total) by mouth at bedtime . donepeziL (ARICEPT) 10 MG tablet Take 1 (one) tablet (10 mg total) by mouth nightly . dupilumab (Dupixent Syringe) 300 mg/2 mL Syrg Inject 2 mL (300 mg total) under the skin every 14 (fourteen) days Every other Thursday . levalbuterol (XOPENEX HFA) 45 mcg/actuation inhaler Inhale 1 (one) puff to 2 (two) puffs every 4 (four) hours as needed for wheezing . 15 g 12 melatonin 5 mg cap Take 1 (one) capsule (5 mg total) by mouth daily . memantine (NAMENDA) 10 MG tablet Take 1 (one) tablet (10 mg total) by mouth 2 (two) times a day . multivitamin with minerals tablet Take 1 (one) tablet by mouth daily . rosuvastatin (CRESTOR) 5 MG tablet TAKE 1 (ONE) TABLET (5 MG TOTAL) BY MOUTH NIGHTLY . 90 tablet 0 triamcinolone (KENALOG) 0.1 % cream Apply 1 application topically 2 (two) times a day as needed . enalapril (VASOTEC) 10 MG tablet Take 1 (one) tablet (10 mg total) by mouth daily . 90 tablet 3 glucosamine-chondroitin 500-400 mg tablet Take 1 (one) tablet by mouth 3 (three) times a day Taking 2 times daily- Replenex . hydroCHLOROthiazide (HYDRODIURIL) 12.5 MG tablet Take 1 (one) tablet (12.5 mg total) by mouth daily . 90 tablet 3 tadalafiL 5 MG tablet Take 1 (one) tablet (5 mg total) by mouth daily as needed for erectile dysfunction . 30 tablet 1 No current facility-administered medications for this visit. PHQ-9 Depression Screening - 08/01/22 0721 Over the last 2 weeks, how often have you been bothered by any of the following problems? (Retired)Little interest or pleasure in doing things -- Little interest or pleasure in doing things 0 (Retired)Feeling down, depressed, or hopeless -- Feeling down, depressed, or hopeless 0 PHQ-2 Total Score 0 Trouble falling or staying asleep, or sleeping too much -- Feeling tired or having little energy -- Poor appetite or overeating -- Feeling bad about yourself - or that you are a failure or have let yourself or your family down -- Trouble concentrating on things, such as reading the newspaper or watching television -- Moving or speaking so slowly that other people could have noticed. Or the opposite - being so fidgety or restless that you have been moving around a lot more than usual -- Thoughts that you would be better off , or of hurting yourself in some way -- PHQ-9 Total Score -- RETIRED - PHQ-9 Total Score -- If you checked off any problems, how difficult have these problems made it for you to do your work, take care of things at home, or get along with other people? -- PHQ-2 Total Score -- Goals None Review of Systems Constitutional: Positive for fatigue. HENT: Negative for ear pain and rhinorrhea. Respiratory: Negative. Cardiovascular: Negative. Gastrointestinal: Negative. Genitourinary: Negative. Musculoskeletal: Negative. Psychiatric/Behavioral: Positive for dysphoric mood and sleep disturbance (follows with dr. galvan). Physical Exam Vitals reviewed. Constitutional: General: He is not in acute distress. HENT: Head: Normocephalic and atraumatic. Cardiovascular: Rate and Rhythm: Normal rate and regular rhythm. Pulmonary: Effort: Pulmonary effort is normal. Breath sounds: Normal breath sounds. Musculoskeletal: Right lower leg: No edema. Left lower leg: No edema. Skin: General: Skin is warm and dry. Comments: New small lesion left cheek Neurological: Mental Status: He is alert. Mental status is at baseline. Diagnoses and all orders for this visit: Diagnoses and all orders for this visit: Primary hypertension cont same stable - hydroCHLOROthiazide (HYDRODIURIL) 12.5 MG tablet; Take 1 (one) tablet (12.5 mg total) by mouth daily . - enalapril (VASOTEC) 10 MG tablet; Take 1 (one) tablet (10 mg total) by mouth daily . - Comprehensive Metabolic Panel; Future - Lipid Panel; Future Fatigue, unspecified type - TSH with Reflex Free T4; Future - CBC and Differential; Future Senile dementia, uncomplicated (HCC) stable/sees dr. Stahl every 6 months follow mood and dementia in [place] now. Erectile dysfunction, unspecified erectile dysfunction type - tadalafiL 5 MG tablet; Take 1 (one) tablet (5 mg total) by mouth daily as needed for erectile dysfunction . At low risk for fall Prostate cancer screening - PSA, Screen; Future For any new medications prescribed today, patient was educated about indications for the medication, how to take the medication and potential side effects of the medications. Images from the original note were not included. Depression Screening 03/14/2021 07/11/2021 08/01/2022 Little interest or pleasure in doing things 0 0 0 Feeling down, depressed, or hopeless 1 0 0 PHQ-2 Total Score 1 0 0 Trouble falling or staying asleep, or sleeping too much 0 - - Feeling tired or having little energy 0 - - Poor appetite or overeating 0 - - Feeling bad about yourself - or that you are a failure or have let yourself or your family down 0 - - Trouble concentrating on things, such as reading the newspaper or watching television 1 - - Moving or speaking so slowly that other people could have noticed. Or the opposite - being so fidgety or restless that you have been moving around a lot more than usual 1 - - Thoughts that you would be better off , or of hurting yourself in some way 0 - - PHQ-9 Total Score 3 - - If you checked off any problems, how difficult have these problems made it for you to do your work, take care of things at home, or get along with other people? Somewhat difficult - - STEADI Falls Evaluation LOW Falls Risk Evaluation: STEADI Falls Risk - 07/25/22 1727 Patient's Ambulatory Status Is Patient Ambulatory? Y [facility] Protocol Fell in past year 0 (No) Unsteady when walks 0 (No) Worried about falling 0 (No) Advised to use cane/walker? 0 (No) Holds onto furniture/thomas 0 (No) Uses hands to stand up from a chair 0 (No) Trouble stepping onto curb 0 (No) Rushes to toilet 0 (No) Lost feeling in feet 0 (No) Medicine makes me light-headed 0 (No) Medicine for sleep or mood 1 (Yes) Often feel sad/depressed 0 (No) Patient Self Risk Assessment Score 1 Visual Acuity Have you had your vision checked in the past 12 months? Yes Falls Assessment and Plan: Lexy has been evaluated for his risk of falling and is considered LOW risk. Patient given Home Safety Checklist, Postural Hypotension Brochure, and Stay Independent Brochure in [facility]. Referred to a community based program such as [facility], [facility], or [facility] and provided information about each. Patient is not currently on Vit D. New Medications ordered: None Additional tests ordered: None Repeat fall risk assessment in 12 months. documented in this encounter [facility] 08-01-2022 History of Present illness Narrative Images from the original note were not included. HPI 67 yo with group home fatigue/depression per , feels better when walking, going to [place] soon. Following with dr. Stahl. Fatigued, doing fasting labs today. Going to see dr. Mendoza for new lesion left cheek. Vitals: 08/01/22 0728 08/01/22 0748 BP: (!) 148/96 (!) 146/80 Temp: 97.5 F (36.4 C) Pulse: 78 Resp: 16 PT WEIGHT Weight 08/01/2022 148 lb 3.2 oz 01/16/2022 152 lb 3.2 oz 07/11/2021 151 lb 03/27/2021 149 lb BP Readings from Last 4 Encounters: 08/01/22 (!) 146/80 01/16/22 128/78 07/11/21 132/80 04/05/21 (!) 172/94 Past Medical History: Diagnosis Date Eczema Hyperlipidemia Hypertension Skin cancer Stroke (HCC) 12/2020 TIA (transient ischemic attack) Past Surgical History: Procedure Laterality Date COSMETIC SURGERY 3 years ago sarcoma CYST REMOVAL scrotal EXCISION LESION HEAD/NECK Left 07/05/2019 Procedure: EXCISION ATYPICAL SARCOMA OF LEFT CHEEK WITH FULL THICKNESS SKIN GRAFT; Surgeon: Mika Kim DO; Location: [facility] [place] OR; Service: Plastics SKIN BIOPSY June 2022 basil cell carcinoma skin cancer surgery Social History Socioeconomic History Marital status: Tobacco Use Smoking status: Never Smokeless tobacco: Never Vaping Use Vaping status: Never Used Substance and Sexual Activity Alcohol use: Never Drug use: Never Sexual activity: Not Currently Partners: Female Social Determinants of Health Financial Resource Strain: Low Risk (08/01/2022) Overall Financial Resource Strain (CARDIA) Difficulty of Paying Living Expenses: Not very hard Food Insecurity: No Food Insecurity (08/01/2022) Hunger Vital Sign Worried About Running Out of Food in the Last Year: Never true Ran Out of Food in the Last Year: Never true Transportation Needs: No Transportation Needs (08/01/2022) PRAPARE - Transportation Lack of Transportation (Medical): No Lack of Transportation (Non-Medical): No Family History Problem Relation Age of Onset Lymphoma Mother Skin cancer Mother Hypertension Mother Cancer Mother Stroke Mother Pancreatic cancer Father Cancer Father Heart attack Paternal Uncle Current Outpatient Medications Medication Sig Dispense Refill albuterol 90 mcg/actuation inhaler Inhale 1 (one) puff every 4 to 6 hours as needed for shortness of breath . 18 g 3 aspirin 81 MG EC tablet Take 1 (one) tablet (81 mg total) by mouth daily . clonazePAM (KLONOPIN) 0.5 MG tablet Take 1 (one) tablet (0.5 mg total) by mouth at bedtime . donepeziL (ARICEPT) 10 MG tablet Take 1 (one) tablet (10 mg total) by mouth nightly . dupilumab (Dupixent Syringe) 300 mg/2 mL Syrg Inject 2 mL (300 mg total) under the skin every 14 (fourteen) days Every other Thursday . levalbuterol (XOPENEX HFA) 45 mcg/actuation inhaler Inhale 1 (one) puff to 2 (two) puffs every 4 (four) hours as needed for wheezing . 15 g 12 melatonin 5 mg cap Take 1 (one) capsule (5 mg total) by mouth daily . memantine (NAMENDA) 10 MG tablet Take 1 (one) tablet (10 mg total) by mouth 2 (two) times a day . multivitamin with minerals tablet Take 1 (one) tablet by mouth daily . rosuvastatin (CRESTOR) 5 MG tablet TAKE 1 (ONE) TABLET (5 MG TOTAL) BY MOUTH NIGHTLY . 90 tablet 0 triamcinolone (KENALOG) 0.1 % cream Apply 1 application topically 2 (two) times a day as needed . enalapril (VASOTEC) 10 MG tablet Take 1 (one) tablet (10 mg total) by mouth daily . 90 tablet 3 glucosamine-chondroitin 500-400 mg tablet Take 1 (one) tablet by mouth 3 (three) times a day Taking 2 times daily- Replenex . hydroCHLOROthiazide (HYDRODIURIL) 12.5 MG tablet Take 1 (one) tablet (12.5 mg total) by mouth daily . 90 tablet 3 tadalafiL 5 MG tablet Take 1 (one) tablet (5 mg total) by mouth daily as needed for erectile dysfunction . 30 tablet 1 No current facility-administered medications for this visit. PHQ-9 Depression Screening - 08/01/22 0721 Over the last 2 weeks, how often have you been bothered by any of the following problems? (Retired)Little interest or pleasure in doing things -- Little interest or pleasure in doing things 0 (Retired)Feeling down, depressed, or hopeless -- Feeling down, depressed, or hopeless 0 PHQ-2 Total Score 0 Trouble falling or staying asleep, or sleeping too much -- Feeling tired or having little energy -- Poor appetite or overeating -- Feeling bad about yourself - or that you are a failure or have let yourself or your family down -- Trouble concentrating on things, such as reading the newspaper or watching television -- Moving or speaking so slowly that other people could have noticed. Or the opposite - being so fidgety or restless that you have been moving around a lot more than usual -- Thoughts that you would be better off , or of hurting yourself in some way -- PHQ-9 Total Score -- RETIRED - PHQ-9 Total Score -- If you checked off any problems, how difficult have these problems made it for you to do your work, take care of things at home, or get along with other people? -- PHQ-2 Total Score -- Goals None Review of Systems Constitutional: Positive for fatigue. HENT: Negative for ear pain and rhinorrhea. Respiratory: Negative. Cardiovascular: Negative. Gastrointestinal: Negative. Genitourinary: Negative. Musculoskeletal: Negative. Psychiatric/Behavioral: Positive for dysphoric mood and sleep disturbance (follows with dr. galvan). Physical Exam Vitals reviewed. Constitutional: General: He is not in acute distress. HENT: Head: Normocephalic and atraumatic. Cardiovascular: Rate and Rhythm: Normal rate and regular rhythm. Pulmonary: Effort: Pulmonary effort is normal. Breath sounds: Normal breath sounds. Musculoskeletal: Right lower leg: No edema. Left lower leg: No edema. Skin: General: Skin is warm and dry. Comments: New small lesion left cheek Neurological: Mental Status: He is alert. Mental status is at baseline. Diagnoses and all orders for this visit: Diagnoses and all orders for this visit: Primary hypertension cont same stable - hydroCHLOROthiazide (HYDRODIURIL) 12.5 MG tablet; Take 1 (one) tablet (12.5 mg total) by mouth daily . - enalapril (VASOTEC) 10 MG tablet; Take 1 (one) tablet (10 mg total) by mouth daily . - Comprehensive Metabolic Panel; Future - Lipid Panel; Future Fatigue, unspecified type - TSH with Reflex Free T4; Future - CBC and Differential; Future Senile dementia, uncomplicated (HCC) stable/sees dr. Stahl every 6 months follow mood and dementia in [place] now. Erectile dysfunction, unspecified erectile dysfunction type - tadalafiL 5 MG tablet; Take 1 (one) tablet (5 mg total) by mouth daily as needed for erectile dysfunction . At low risk for fall Prostate cancer screening - PSA, Screen; Future For any new medications prescribed today, patient was educated about indications for the medication, how to take the medication and potential side effects of the medications. Images from the original note were not included. Depression Screening 03/14/2021 07/11/2021 08/01/2022 Little interest or pleasure in doing things 0 0 0 Feeling down, depressed, or hopeless 1 0 0 PHQ-2 Total Score 1 0 0 Trouble falling or staying asleep, or sleeping too much 0 - - Feeling tired or having little energy 0 - - Poor appetite or overeating 0 - - Feeling bad about yourself - or that you are a failure or have let yourself or your family down 0 - - Trouble concentrating on things, such as reading the newspaper or watching television 1 - - Moving or speaking so slowly that other people could have noticed. Or the opposite - being so fidgety or restless that you have been moving around a lot more than usual 1 - - Thoughts that you would be better off , or of hurting yourself in some way 0 - - PHQ-9 Total Score 3 - - If you checked off any problems, how difficult have these problems made it for you to do your work, take care of things at home, or get along with other people? Somewhat difficult - - STEADI Falls Evaluation LOW Falls Risk Evaluation: MOHIT Falls Risk - 07/25/22 1727 Patient's Ambulatory Status Is Patient Ambulatory? Y MOHIT Protocol Fell in past year 0 (No) Unsteady when walks 0 (No) Worried about falling 0 (No) Advised to use cane/walker? 0 (No) Holds onto furniture/thomas 0 (No) Uses hands to stand up from a chair 0 (No) Trouble stepping onto curb 0 (No) Rushes to toilet 0 (No) Lost feeling in feet 0 (No) Medicine makes me light-headed 0 (No) Medicine for sleep or mood 1 (Yes) Often feel sad/depressed 0 (No) Patient Self Risk Assessment Score 1 Visual Acuity Have you had your vision checked in the past 12 months? Yes Falls Assessment and Plan: Lexy has been evaluated for his risk of falling and is considered LOW risk. Patient given Home Safety Checklist, Postural Hypotension Brochure, and Stay Independent Brochure in AVS. Referred to a community based program such as Stepping On, James Chi, or Matter of Balance and provided information about each. Patient is not currently on Vit D. New Medications ordered: None Additional tests ordered: None Repeat fall risk assessment in 12 months. documented in this encounter [facility] 08-01-2022 Instructions Gigi Mic George DO - 08/01/2022 7:41 AM EDT STEADI Low Risk Patient Instructions: Your Falls Screening today shows that you are at low risk for falls. To further protect yourself from falls and maintain your independence, we recommend: 1. Read through the brochure, What You Can Do to Prevent Falls (from [facility]). 2. Go through the brochure, Check for Safety: A Home Fall Prevention Checklist for Older Adults (from [facility]), and make changes as recommended. 3. Join a community falls prevention program: Stepping On, a 7-week evidence based program that teaches balance exercises and fall prevention strategies James Chi for older adults, group exercise that teaches James Chi forms that reduce fall risk (weight shifting, postural alignment and control, and coordinated movements of the arms, legs, head, and trunk) Matter of Balance, an evidence based program designed to reduce the fear of falling and increase activity levels of older adults OR an exercise class for strength and balance. 4. Take your Vitamin D with or without Calcium, as determined by your healthcare provider. 5. Get your vision and hearing checked annually. Falls At Home Each year, thousands of older Americans fall at home. Many of them are seriously injured, and some are disabled. In 2011, nearly 23,000 people over age 65 and 2.4 million were treated in emergency departments because of falls. Falls are often due to hazards that are easy to overlook but easy to fix. This checklist will help you find and fix those hazards in your home. The checklist asks about hazards found in each room of your home. For each hazard, the checklist tells you how to fix the problem. At the end of the checklist, you ll find other tips for preventing falls. FLOORS: Look at the floor in each room. Q: When you walk through a room, do you have to walk around furniture? A. Ask someone to move the furniture so your path is clear Q: Do you have throw rugs on the floor? A. Remove the rugs or use double-sided tape or a non-slip backing so the rugs won t slip. Q: Are there papers, books, towels, shoes, magazines, boxes, blankets, or other objects on the floor? A.distribution center supervisor things that are on the floor. Always keep objects off the floor. Q: Do you have to walk over or around wires or cords (like lamp, telephone, or extension cords)? A. Coil or tape cords and wires next to the wall so you can t trip over them. If needed, have an marine electrician apprentice put in another outlet. STAIRS AND STEPS: Look at the stairs you use both inside and outside your home. Q: Are there papers, shoes, books, or other objects on the stairs? A. distribution center supervisor things on the stairs. Always keep objects off stairs. Q: Are some steps broken or uneven? A. Fix loose or uneven steps. Q: Are you missing a light over the stairway? A. Have an marine electrician apprentice put in an overhead light at the top and bottom of the stairs. Q: Do you have only one light switch for your stairs (only at the top or at the bottom of the stairs)? A. Have an marine electrician apprentice put in a light switch at the top and bottom of the stairs. You can get light switches that glow. Q: Has the stairway light bulb burned out? A. Have a friend or family member change the light bulb. Q: Is the carpet on the steps loose or torn? A. Make sure the carpet is firmly attached to every step, or remove the carpet and attach non-slip rubber treads to the stairs. Q: Are the handrails loose or broken? Is there a handrail on only one side of the stairs? A. Fix loose handrails or put in new ones. Make sure handrails are on both sides of the stairs and are as long as the stairs. KITCHEN: Look at your kitchen and eating area. Q: Are the things you use often on high shelves? A. Move items in your cabinets. Keep things you use often on the lower shelves (about waist level). Q: Is your step stool unsteady? A. If you must use a step stool, get one with a bar to hold on to. Never use a chair as a step stool. BATHROOMS: Look at all your bathrooms. Q: Is the tub or shower floor slippery? A. Put a non-slip rubber mat or self-stick strips on the floor of the tub or shower. Q: Do you need some support when you get in and out of the tub or up from the toilet? A. Have grab bars put in next to and inside the tub and next to the toilet. BEDROOMS: Look at all your bedrooms. Q: Is the light near the bed hard to reach? A. Place a lamp close to the bed where it s easy to reach. Q: Is the path from your bed to the bathroom dark? A. Put in a night-light so you can see where you re walking. Some night-lights go on by themselves after dark. Other Things You Can Do to Prevent Falls Do exercises that improve your balance and make your legs stronger. Exercise also helps you feel better and more confident. Have your doctor or pharmacist look at all the medicines you take, even [id number] medicines. Some medicines can make you sleepy or dizzy. Have your eyes checked by an eye doctor at least once a year and update your glasses. Get up slowly after you sit or lie down. Wear shoes both inside and outside the house. Avoid going barefoot or wearing slippers. Improve the lighting in your home. Put in brighter light bulbs. Florescent bulbs are bright and cost less to use. It s safest to have uniform lighting in a room. Add lighting to dark areas. Hang lightweight curtains or shades to reduce glare. [place] a contrasting color on the top edge of all steps so you can see the stairs better. For example, use a light color paint on dark wood. To access this brochure online, please visit the CDC website at http://www.cdc.gov/steadi/pdf/jose ck_for_safety_brochure-a.pdf Chair Rise Exercise What it does: Strengthens the muscles in your thighs & buttocks. Goal: To do this exercise without using your hands as you become stronger. How to do it: 1. Sit toward the front of a sturdy chair with your knees bent & feet flat on the floor shoulder-width apart 2. Rest your hands lightly on the seat on either side of you, keeping your back & neck straight & and chest slightly forward. 3. Breathe in slowly. Lean forward & feel your weight on the front of your feet. 4. Breathe out and slowly stand up, using your hands as little as possible. 5. Pause for a full breath in & out. 6. Breathe in as you slowly sit down. Do not let yourself collapse back down into the chair. Rather, control your lowering as much as possible. 7. Breathe out. Repeat 10-15 times. If this number is too hard for you when you first start practicing this exercise, begin with fewer and work up to this number. Rest for a minute & then do a final set of 10-15. For detailed instructions, please visit the CDC website at http://www.cdc.gov/mohit/pdf/uche ir_rise_exercise-a.pdf documented in this encounter [facility] 08-01-2022 Instructions Gigi George DO - 08/01/2022 7:41 AM EDT MOHIT Low Risk Patient Instructions: Your Falls Screening today shows that you are at low risk for falls. To further protect yourself from falls and maintain your independence, we recommend: 1. Read through the brochure, What You Can Do to Prevent Falls (from [facility]). 2. Go through the brochure, Check for Safety: A Home Fall Prevention Checklist for Older Adults (from [facility]), and make changes as recommended. 3. Join a community falls prevention program: Stepping On, a 7-week evidence based program that teaches balance exercises and fall prevention strategies James Chi for older adults, group exercise that teaches James Chi forms that reduce fall risk (weight shifting, postural alignment and control, and coordinated movements of the arms, legs, head, and trunk) Matter of Balance, an evidence based program designed to reduce the fear of falling and increase activity levels of older adults OR an exercise class for strength and balance. 4. Take your Vitamin D with or without Calcium, as determined by your healthcare provider. 5. Get your vision and hearing checked annually. Falls At Home Each year, thousands of older Americans fall at home. Many of them are seriously injured, and some are disabled. In 2011, nearly 23,000 people over age 65 and 2.4 million were treated in emergency departments because of falls. Falls are often due to hazards that are easy to overlook but easy to fix. This checklist will help you find and fix those hazards in your home. The checklist asks about hazards found in each room of your home. For each hazard, the checklist tells you how to fix the problem. At the end of the checklist, you ll find other tips for preventing falls. FLOORS: Look at the floor in each room. Q: When you walk through a room, do you have to walk around furniture? A. Ask someone to move the furniture so your path is clear Q: Do you have throw rugs on the floor? A. Remove the rugs or use double-sided tape or a non-slip backing so the rugs won t slip. Q: Are there papers, books, towels, shoes, magazines, boxes, blankets, or other objects on the floor? A.distribution center supervisor things that are on the floor. Always keep objects off the floor. Q: Do you have to walk over or around wires or cords (like lamp, telephone, or extension cords)? A. Coil or tape cords and wires next to the wall so you can t trip over them. If needed, have an marine electrician apprentice put in another outlet. STAIRS AND STEPS: Look at the stairs you use both inside and outside your home. Q: Are there papers, shoes, books, or other objects on the stairs? A. distribution center supervisor things on the stairs. Always keep objects off stairs. Q: Are some steps broken or uneven? A. Fix loose or uneven steps. Q: Are you missing a light over the stairway? A. Have an marine electrician apprentice put in an overhead light at the top and bottom of the stairs. Q: Do you have only one light switch for your stairs (only at the top or at the bottom of the stairs)? A. Have an marine electrician apprentice put in a light switch at the top and bottom of the stairs. You can get light switches that glow. Q: Has the stairway light bulb burned out? A. Have a friend or family member change the light bulb. Q: Is the carpet on the steps loose or torn? A. Make sure the carpet is firmly attached to every step, or remove the carpet and attach non-slip rubber treads to the stairs. Q: Are the handrails loose or broken? Is there a handrail on only one side of the stairs? A. Fix loose handrails or put in new ones. Make sure handrails are on both sides of the stairs and are as long as the stairs. KITCHEN: Look at your kitchen and eating area. Q: Are the things you use often on high shelves? A. Move items in your cabinets. Keep things you use often on the lower shelves (about waist level). Q: Is your step stool unsteady? A. If you must use a step stool, get one with a bar to hold on to. Never use a chair as a step stool. BATHROOMS: Look at all your bathrooms. Q: Is the tub or shower floor slippery? A. Put a non-slip rubber mat or self-stick strips on the floor of the tub or shower. Q: Do you need some support when you get in and out of the tub or up from the toilet? A. Have grab bars put in next to and inside the tub and next to the toilet. BEDROOMS: Look at all your bedrooms. Q: Is the light near the bed hard to reach? A. Place a lamp close to the bed where it s easy to reach. Q: Is the path from your bed to the bathroom dark? A. Put in a night-light so you can see where you re walking. Some night-lights go on by themselves after dark. Other Things You Can Do to Prevent Falls Do exercises that improve your balance and make your legs stronger. Exercise also helps you feel better and more confident. Have your doctor or pharmacist look at all the medicines you take, even mbym-oko-[id number] medicines. Some medicines can make you sleepy or dizzy. Have your eyes checked by an eye doctor at least once a year and update your glasses. Get up slowly after you sit or lie down. Wear shoes both inside and outside the house. Avoid going barefoot or wearing slippers. Improve the lighting in your home. Put in brighter light bulbs. Florescent bulbs are bright and cost less to use. It s safest to have uniform lighting in a room. Add lighting to dark areas. Hang lightweight curtains or shades to reduce glare. [place] a contrasting color on the top edge of all steps so you can see the stairs better. For example, use a light color paint on dark wood. To access this brochure online, please visit the CDC website at http://www.cdc.gov/steadi/pdf/jose ck_for_safety_brochure-a.pdf Chair Rise Exercise What it does: Strengthens the muscles in your thighs & buttocks. Goal: To do this exercise without using your hands as you become stronger. How to do it: 1. Sit toward the front of a sturdy chair with your knees bent & feet flat on the floor shoulder-width apart 2. Rest your hands lightly on the seat on either side of you, keeping your back & neck straight & and chest slightly forward. 3. Breathe in slowly. Lean forward & feel your weight on the front of your feet. 4. Breathe out and slowly stand up, using your hands as little as possible. 5. Pause for a full breath in & out. 6. Breathe in as you slowly sit down. Do not let yourself collapse back down into the chair. Rather, control your lowering as much as possible. 7. Breathe out. Repeat 10-15 times. If this number is too hard for you when you first start practicing this exercise, begin with fewer and work up to this number. Rest for a minute & then do a final set of 10-15. For detailed instructions, please visit the CDC website at http://www.cdc.gov/steadi/pdf/uche ir_rise_exercise-a.pdf documented in this encounter [facility] 04-02-2022 Telephone encounter Note Last ov 03/27/21 w/ DR. Knapp Scheduling to contact for ov [facility] 04-02-2022 Miscellaneous Notes Last ov 03/27/21 w/ DR. Knapp Scheduling to contact for ov Message sent to schedulers to contact pt for overdue ov w. Dr. Knapp documented in this encounter [facility] 03-31-2022 Telephone encounter Note Message sent to schedulers to contact pt for overdue ov w. Dr. Knapp [facility] 01-16-2022 History of Present illness Narrative Images from the original note were not included. HPI Here 01/16/[address] Knapp/dr. Stahl . No atrial fib, implantable loop recorder for 3 year monitoring but is resistant to it at present. Enjoyed [employer] trip but did not kiss Sue JoKno.. Here to recheck bp doing well with meds 07/11/2021. Anxiety since stroke, not working and below reviewed. Here for 2nd visit. [employer] wants to put on heart monitor. 3 year monitoring for atrial fibrillation Here with , had stroke in [place] and dr. stahl has been following me since december 2020. Actually has been seeing sae for dementia with 2 drugs for 2 years. bp has been fluctuating and dr. stahl stopped namenda and bp actually is improving. 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 stahl [address] mendoza and [address] bo follows often for hx of skin cancers! 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 1. Small subacute to early chronic ischemic infarct within the posterolateral right frontal lobe. No acute hemorrhage or mass effect. 2. Mild atrophy and chronic small vessel ischemic changes of the supratentorial white matter. DMC/c Principal Problem: TIA (transient ischemic attack) Hypertension Vitals: 01/16/22 1032 BP: 128/78 Temp: 98.3 F (36.8 C) Pulse: 66 Resp: 16 SpO2: 98% PT WEIGHT Weight 01/16/2022 152 lb 3.2 oz 07/11/2021 151 lb 03/27/2021 149 lb 03/14/2021 149 lb BP Readings from Last 4 Encounters: 01/16/22 128/78 07/11/21 132/80 04/05/21 (!) 172/94 03/27/21 (!) 155/88 Past Medical History: Diagnosis Date Eczema Hyperlipidemia Hypertension Skin cancer Stroke (HCC) 12/2020 TIA (transient ischemic attack) Past Surgical History: Procedure Laterality Date CYST REMOVAL scrotal EXCISION LESION HEAD/NECK Left 07/05/2019 Procedure: EXCISION ATYPICAL SARCOMA OF LEFT CHEEK WITH FULL THICKNESS SKIN GRAFT; Surgeon: Mika Kim DO; Location: [facility] [place] OR; Service: Plastics skin cancer surgery Social History Socioeconomic History Marital status: Tobacco Use Smoking status: Never Smokeless tobacco: Never Vaping Use Vaping Use: Never used Substance and Sexual Activity Alcohol use: Never Drug use: Never Sexual activity: Not Currently Partners: Female Family History Problem Relation Age of Onset Lymphoma Mother Skin cancer Mother Hypertension Mother Pancreatic cancer Father Heart attack Paternal Uncle Current Outpatient Medications Medication Sig Dispense Refill albuterol 90 mcg/actuation inhaler Inhale 1 (one) puff every 4 to 6 hours as needed for shortness of breath . 18 g 3 aspirin 81 MG EC tablet Take 81 mg by mouth daily . clonazePAM (KLONOPIN) 0.5 MG tablet Take 0.5 mg by mouth at bedtime . donepeziL (ARICEPT) 10 MG tablet Take 10 mg by mouth nightly . dupilumab (Dupixent Syringe) 300 mg/2 mL Syrg Inject 300 mg under the skin every 14 (fourteen) days Every other Thursday . enalapril (VASOTEC) 10 MG tablet Take 1 (one) tablet (10 mg total) by mouth daily . 90 tablet 3 glucosamine-chondroitin 500-400 mg tablet Take 1 tablet by mouth 3 (three) times a day Taking 2 times daily- Replenex . hydroCHLOROthiazide (HYDRODIURIL) 12.5 MG tablet Take 1 (one) tablet (12.5 mg total) by mouth daily . 90 tablet 3 memantine (NAMENDA) 10 MG tablet Take 10 mg by mouth 2 (two) times a day . multivitamin with minerals tablet Take 1 tablet by mouth daily . rosuvastatin (Crestor) 5 MG tablet Take 1 (one) tablet (5 mg total) by mouth nightly . 90 tablet 3 tadalafiL (CIALIS) 5 MG tablet Take 1 (one) tablet (5 mg total) by mouth daily as needed for erectile dysfunction . 30 tablet 1 triamcinolone (KENALOG) 0.1 % cream Apply 1 application topically 2 (two) times a day as needed . No current facility-administered medications for this visit. PHQ-9 Depression Screening No documentation. Goals None Review of Systems Constitutional: Positive for fatigue (since stroke). Negative for chills. HENT: Negative for mouth sores and sinus pressure. Eyes: Negative for pain and visual disturbance. Respiratory: Negative for cough and shortness of breath. Cardiovascular: Negative for chest pain and palpitations. Endocrine: Negative for polydipsia, polyphagia and polyuria. Genitourinary: Negative for dysuria and hematuria. Skin: Negative for rash. Neurological: Negative for dizziness and light-headedness. Hematological: Negative for adenopathy. Psychiatric/Behavioral: Negative for behavioral problems and self-injury. Physical Exam Constitutional: General: He is not in acute distress. Appearance: He is well-developed. HENT: Head: Normocephalic and atraumatic. Right Ear: External ear normal. Left Ear: External ear normal. Nose: Nose normal. Eyes: Conjunctiva/sclera: Conjunctivae normal. Cardiovascular: Rate and Rhythm: Normal rate and regular rhythm. Heart sounds: No murmur heard. Pulmonary: Effort: Pulmonary effort is normal. Breath sounds: Normal breath sounds. Musculoskeletal: Cervical back: Neck supple. Skin: General: Skin is warm. Neurological: Mental Status: He is alert. Mental status is at baseline. Psychiatric: Mood and Affect: Mood normal. Diagnoses and all orders for this visit: Diagnoses and all orders for this visit: Primary hypertension cont same stable Erectile dysfunction, unspecified erectile dysfunction type - tadalafiL 5 MG tablet; Take 1 (one) tablet (5 mg total) by mouth daily as needed for erectile dysfunction . For any new medications prescribed today, patient was educated about indications for the medication, how to take the medication and potential side effects of the medications. documented in this encounter [facility] 07-11-2021 History of Present illness Narrative Images from the original note were not included. HPI Here to recheck bp doing well with meds 07/11/2021. Anxiety since stroke, not working and below reviewed. Here for 2nd visit. [employer] wants to put on heart monitor. 3 year monitoring for atrial fibrillation Here with , had stroke in [place] and dr. stahl has been following me since december 2020. Actually has been seeing sae for dementia with 2 drugs for 2 years. bp has been fluctuating and dr. stahl stopped namenda and bp actually is improving. 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 stahl every [address] mendoza and [address] bo follows often for hx of skin cancers! 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 1. Small subacute to early chronic ischemic infarct within the posterolateral right frontal lobe. No acute hemorrhage or mass effect. 2. Mild atrophy and chronic small vessel ischemic changes of the supratentorial white matter. [facility] Principal Problem: TIA (transient ischemic attack) Hypertension Vitals: 07/11/21 1012 BP: (!) 148/77 Temp: 97.6 F (36.4 C) Pulse: 66 Resp: 18 SpO2: 96% PT WEIGHT Weight 07/11/2021 151 lb 03/27/2021 149 lb 03/14/2021 149 lb 02/07/2021 140 lb BP Readings from Last 4 Encounters: 07/11/21 (!) 148/77 04/05/21 (!) 172/94 03/27/21 (!) 155/88 03/14/21 136/70 Past Medical History: Diagnosis Date Eczema Hyperlipidemia Hypertension Skin cancer Stroke (HCC) 12/2020 TIA (transient ischemic attack) Past Surgical History: Procedure Laterality Date CYST REMOVAL scrotal EXCISION LESION HEAD/NECK Left 07/05/2019 Procedure: EXCISION ATYPICAL SARCOMA OF LEFT CHEEK WITH FULL THICKNESS SKIN GRAFT; Surgeon: Mika Kim DO; Location: [facility] [place] OR; Service: Plastics skin cancer surgery Social History Socioeconomic History Marital status: Tobacco Use Smoking status: Never Smoker Smokeless tobacco: Never Used Vaping Use Vaping Use: Never used Substance and Sexual Activity Alcohol use: Never Drug use: Never Sexual activity: Not Currently Partners: Female Family History Problem Relation Age of Onset Lymphoma Mother Skin cancer Mother Hypertension Mother Pancreatic cancer Father Heart attack Paternal Uncle Current Outpatient Medications Medication Sig Dispense Refill aspirin 81 MG EC tablet Take 81 mg by mouth daily . clonazePAM (KLONOPIN) 0.5 MG tablet Take 0.5 mg by mouth at bedtime . donepeziL (ARICEPT) 10 MG tablet Take 10 mg by mouth nightly . dupilumab (Dupixent Syringe) 300 mg/2 mL Syrg Inject 300 mg under the skin every 14 (fourteen) days Every other Thursday . glucosamine-chondroitin 500-400 mg tablet Take 1 tablet by mouth 3 (three) times a day Taking 2 times daily- Replenex . memantine (NAMENDA) 10 MG tablet Take 10 mg by mouth 2 (two) times a day . multivitamin with minerals tablet Take 1 tablet by mouth daily . rosuvastatin (Crestor) 5 MG tablet Take 1 (one) tablet (5 mg total) by mouth nightly . 90 tablet 3 triamcinolone (KENALOG) 0.1 % cream Apply 1 application topically 2 (two) times a day as needed . albuterol 90 mcg/actuation inhaler Inhale 1 (one) puff every 4 to 6 hours as needed for shortness of breath . 18 g 3 enalapril (VASOTEC) 10 MG tablet Take 1 (one) tablet (10 mg total) by mouth daily . 90 tablet 3 hydroCHLOROthiazide (HYDRODIURIL) 12.5 MG tablet Take 1 (one) tablet (12.5 mg total) by mouth daily . 90 tablet 3 tadalafiL (CIALIS) 5 MG tablet Take 1 (one) tablet (5 mg total) by mouth daily as needed for erectile dysfunction . 30 tablet 1 No current facility-administered medications for this visit. PHQ-9 Depression Screening - 07/11/21 1000 Over the last 2 weeks, how often have you been bothered by any of the following problems? (Retired)Little interest or pleasure in doing things -- Little interest or pleasure in doing things 0 (Retired)Feeling down, depressed, or hopeless -- Feeling down, depressed, or hopeless 0 PHQ-2 Total Score 0 Trouble falling or staying asleep, or sleeping too much -- Feeling tired or having little energy -- Poor appetite or overeating -- Feeling bad about yourself - or that you are a failure or have let yourself or your family down -- Trouble concentrating on things, such as reading the newspaper or watching television -- Moving or speaking so slowly that other people could have noticed. Or the opposite - being so fidgety or restless that you have been moving around a lot more than usual -- Thoughts that you would be better off , or of hurting yourself in some way -- PHQ-9 Total Score -- RETIRED - PHQ-9 Total Score -- If you checked off any problems, how difficult have these problems made it for you to do your work, take care of things at home, or get along with other people? -- PHQ-2 Total Score -- Goals None Review of Systems Constitutional: Negative for chills, fever and unexpected weight change. HENT: Negative for ear pain, facial swelling, mouth sores, sinus pain, sore throat and trouble swallowing. Eyes: Negative for photophobia, pain and visual disturbance. Respiratory: Negative for cough and shortness of breath. Cardiovascular: Negative for chest pain, palpitations and leg swelling. Gastrointestinal: Negative for abdominal pain, blood in stool, constipation and nausea. Endocrine: Negative for polydipsia and polyuria. Genitourinary: Negative for dysuria and frequency. Musculoskeletal: Negative for back pain and gait problem. Skin: Negative for rash. Allergic/Immunologic: Negative for immunocompromised state. Neurological: Negative for dizziness and weakness. Hematological: Negative for adenopathy. Does not bruise/bleed easily. Psychiatric/Behavioral: Negative for dysphoric mood and hallucinations. The patient is not nervous/anxious. Physical Exam Constitutional: General: He is not in acute distress. Appearance: He is well-developed. HENT: Head: Normocephalic and atraumatic. Right Ear: External ear normal. Left Ear: External ear normal. Nose: Nose normal. Eyes: Conjunctiva/sclera: Conjunctivae normal. Pupils: Pupils are equal, round, and reactive to light. Cardiovascular: Rate and Rhythm: Normal rate and regular rhythm. Heart sounds: Normal heart sounds. No murmur heard. Pulmonary: Effort: Pulmonary effort is normal. Breath sounds: Normal breath sounds. No wheezing. Chest: Chest wall: No tenderness. Abdominal: General: Bowel sounds are normal. Palpations: Abdomen is soft. There is no mass. Tenderness: There is no abdominal tenderness. There is no guarding or rebound. Musculoskeletal: General: No tenderness or deformity. Cervical back: Normal range of motion and neck supple. Lymphadenopathy: Cervical: No cervical adenopathy. Skin: General: Skin is warm and dry. Findings: No rash. Neurological: Mental Status: He is alert. Mental status is at baseline. Deep Tendon Reflexes: Reflexes are normal and symmetric. Psychiatric: Behavior: Behavior normal. Thought Content: Thought content normal. Judgment: Judgment normal. Diagnoses and all orders for this visit: Diagnoses and all orders for this visit: Primary hypertension - hydroCHLOROthiazide (HYDRODIURIL) 12.5 MG tablet; Take 1 (one) tablet (12.5 mg total) by mouth daily . - enalapril (VASOTEC) 10 MG tablet; Take 1 (one) tablet (10 mg total) by mouth daily . - Comprehensive Metabolic Panel; Future - Lipid Panel; Future Erectile dysfunction, unspecified erectile dysfunction type - tadalafiL (CIALIS) 5 MG tablet; Take 1 (one) tablet (5 mg total) by mouth daily as needed for erectile dysfunction . Prostate cancer screening - PSA, Screen; Future Other orders - albuterol 90 mcg/actuation inhaler; Inhale 1 (one) puff every 4 to 6 hours as needed for shortness of breath . Diagnoses and all orders for this visit: Primary hypertension - hydroCHLOROthiazide (HYDRODIURIL) 12.5 MG tablet; Take 1 (one) tablet (12.5 mg total) by mouth daily . - enalapril (VASOTEC) 10 MG tablet; Take 1 (one) tablet (10 mg total) by mouth daily . - Comprehensive Metabolic Panel; Future - Lipid Panel; Future Erectile dysfunction, unspecified erectile dysfunction type - tadalafiL (CIALIS) 5 MG tablet; Take 1 (one) tablet (5 mg total) by mouth daily as needed for erectile dysfunction . Prostate cancer screening - PSA, Screen; Future Senile dementia, uncomplicated (HCC) Sees dr. stahl every 3-6 months his office in [place] now.. Other orders - albuterol 90 mcg/actuation inhaler; Inhale 1 (one) puff every 4 to 6 hours as needed for shortness of breath . cologuard offered. For any new medications prescribed today, patient was educated about indications for the medication, how to take the medication and potential side effects of the medications. Depression Screening 03/14/2021 07/11/2021 Little interest or pleasure in doing things 0 0 Feeling down, depressed, or hopeless 1 0 PHQ-2 Total Score 1 0 Trouble falling or staying asleep, or sleeping too much 0 - Feeling tired or having little energy 0 - Poor appetite or overeating 0 - Feeling bad about yourself - or that you are a failure or have let yourself or your family down 0 - Trouble concentrating on things, such as reading the newspaper or watching television 1 - Moving or speaking so slowly that other people could have noticed. Or the opposite - being so fidgety or restless that you have been moving around a lot more than usual 1 - Thoughts that you would be better off , or of hurting yourself in some way 0 - PHQ-9 Total Score 3 - If you checked off any problems, how difficult have these problems made it for you to do your work, take care of things at home, or get along with other people? Somewhat difficult - documented in this encounter [facility] 04-11-2021 Note HNO ID: [id number] Author: Daniella Okeefe OD Service: ? Author Type: DUST BOX TENDER Type: Progress Notes Filed: 04/11/2021 9:07 AM Note Text: ASSESSMENT/PLAN: 1. Hyperopia, bilateral - ICD9: 367.0, ICD10: H52.03 (primary diagnosis) 2. Regular astigmatism, bilateral - ICD9: 367.21, ICD10: H52.223 3. Presbyopia - ICD9: 367.4, ICD10: H52.4 Continue to wear his glasses with the update Recommended yearly exams. Daniella Okeefe OD [facility] 03-29-2021 Miscellaneous Notes Associated Problem(s): Abnormal ECG Reviewed. documented in this encounter [facility] 03-27-2021 History of Present illness Narrative [facility] [address] [facility] [address] [facility] [id number] Subjective: Lexy Beverly is a 65 y.o. 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 History of CVA confirmed on MRI done in January. Probably happened back in October 2020. History of hypertension history of mild hyperlipidemia no history of diabetes no smoking history. Mother had a stroke. Recent EKG shows sinus rhythm with incomplete right bundle branch block left axis. No previous EKGs patient has some shortness of breath and fatigue. No chest pains certainly could be an anginal equivalent. states that he is gone a lot more fatigue and recent months. EKG technically abnormal. No history of any sleep apnea. No history of heart failure. Do not see any evidence of carotid work-up. No history of echocardiogram no monitoring done. Overview of Problems Addressed: Problem Abnormal Ecg Assessment & Plan: Plan recommend start Crestor 5 mg daily discussed he agrees Check carotid Doppler Check echocardiogram Check nuclear stress test with his abnormal EKG and fatigue shortness of breath anginal equivalent type issues. Check a 30-day event monitor. If that was all unremarkable would recommend implantable loop recorder with his history of confirmed CVA. Denies any palpitations no syncope near syncope no leg swelling cardiac exam unremarkable. Reviewed low-sodium diet. Abnormal ECG Reviewed. Histories: Past Medical History: Diagnosis Date Eczema Hypertension Skin cancer Stroke (HCC) 12/2020 TIA (transient ischemic attack) Past Surgical History: Procedure Laterality Date CYST REMOVAL scrotal EXCISION LESION HEAD/NECK Left 07/05/2019 Procedure: EXCISION ATYPICAL SARCOMA OF LEFT CHEEK WITH FULL THICKNESS SKIN GRAFT; Surgeon: Mika Kim DO; Location: [facility] [place] OR; Service: Plastics skin cancer surgery Family History Problem Relation Age of Onset Lymphoma Mother Skin cancer Mother Hypertension Mother Pancreatic cancer Father Heart attack Paternal Uncle Social History Tobacco Use Smoking status: Never Smoker Smokeless tobacco: Never Used Vaping Use Vaping Use: Never used Substance Use Topics Alcohol use: Never Drug use: Never Patient's Medications New Prescriptions ROSUVASTATIN (CRESTOR) 5 MG TABLET Take 1 (one) tablet (5 mg total) by mouth nightly . Previous Medications ALBUTEROL 90 MCG/ACTUATION INHALER Inhale 1 puff every 4 to 6 hours as needed for shortness of breath . ASPIRIN 81 MG EC TABLET Take 81 mg by mouth daily . CLONAZEPAM (KLONOPIN) 0.5 MG TABLET Take 0.5 mg by mouth at bedtime . DONEPEZIL (ARICEPT) 10 MG TABLET Take 10 mg by mouth nightly . DONEPEZIL (ARICEPT) 10 MG TABLET Tablet Oral DUPILUMAB (DUPIXENT SYRINGE) 300 MG/2 ML SYRG Inject 300 mg under the skin every 14 (fourteen) days Every other Thursday . ENALAPRIL (VASOTEC) 10 MG TABLET Take 10 mg by mouth daily . GLUCOSAMINE-CHONDROITIN 500-400 MG TABLET Take 1 tablet by mouth 3 (three) times a day Taking 2 times daily- Replenex . HYDROCHLOROTHIAZIDE (HYDRODIURIL) 12.5 MG TABLET Take 1 (one) tablet (12.5 mg total) by mouth daily . MULTIVITAMIN WITH MINERALS TABLET Take 1 tablet by mouth daily . TADALAFIL (CIALIS) 5 MG TABLET Take 1 (one) tablet (5 mg total) by mouth daily as needed for erectile dysfunction . TRIAMCINOLONE (KENALOG) 0.1 % CREAM Apply 1 application topically 2 (two) times a day as needed . Modified Medications No medications on file Discontinued Medications ENALAPRIL (VASOTEC) 20 MG TABLET Take 1 (one) tablet (20 mg total) by mouth daily . Allergies Allergen Reactions Latex Rash Review of Systems Constitutional: Positive for malaise/fatigue. Cardiovascular: Positive for dyspnea on exertion. Negative for chest pain, leg swelling and palpitations. Neurological: Negative for dizziness. Objective: Physical Exam Vitals and nursing note reviewed. Constitutional: General: He is not in acute distress. Appearance: He is well-developed. He is not diaphoretic. Comments: No acute distress HENT: Head: Normocephalic. Eyes: General: No scleral icterus. Comments: Pupils equal. Neck: Vascular: No JVD. Cardiovascular: Rate and Rhythm: Regular rhythm. Pulses: Radial pulses are 2+ on the right side and 2+ on the left side. Heart sounds: S1 normal and S2 normal. No murmur heard. No gallop. No S3 or S4 sounds. Comments: Feet warm bilateral. Pulmonary: Effort: No respiratory distress. Breath sounds: Normal breath sounds. No stridor. No wheezing or rales. Abdominal: General: There is no distension. Palpations: Abdomen is soft. Tenderness: There is no abdominal tenderness. There is no guarding. Musculoskeletal: General: No tenderness or edema. Skin: General: Skin is warm and dry. Neurological: Mental Status: He is alert and oriented to person, place, and time. Psychiatric: Mood and Affect: Mood and affect normal. Vitals: Vitals: 03/27/21 0857 03/27/21 0910 BP: (!) 150/98 (!) 155/88 BP Location: Left arm Right arm Patient Position: Sitting BP Cuff Size: Adult Pulse: 78 SpO2: 98% Weight: 67.6 kg (149 lb) Height: 5' 9" Body mass index is 22 kg/m . Orders Placed This Encounter Procedures NM Myocardial Perfusion Multiple SPECT Standing Status: Future Standing Expiration Date: 03/28/2022 Scheduling Instructions: Do Not Schedule more than one Nuc Med procedure for a patient per day!!!! (Contact Nuc Med for exceptions) If it is after 12:00pm and procedure is for tomorrow, contact Nuclear Medicine for approval to schedule the procedure. Fax Order/Script to: [phone] for Central Scheduling scripts [phone] for [place] Scheduling scripts DO NOT USE R/O A DIAGNOSIS Order Specific Question: What type of stressing agent do you want to be used? Answer: Exercise / Treadmill Order Specific Question: Release to patient Answer: Immediate Cardiac event monitor Standing Status: Future Number of Occurrences: 1 Standing Expiration Date: 03/28/2022 Order Specific Question: Length of Duration: Answer: 30 days Order Specific Question: Expected Date: Answer: Today Order Specific Question: Expected Answer: 03/27/2021 Order Specific Question: Expiration Date: Answer: 14 Months Order Specific Question: Expires Answer: 05/27/2022 Order Specific Question: Release to patient Answer: Immediate Echocardiogram complete Standing Status: Future Standing Expiration Date: 03/28/2022 Order Specific Question: Reason for exam Answer: Stroke/TIA Order Specific Question: Release to patient Answer: Immediate Ultrasound doppler carotid Standing Status: Future Standing Expiration Date: 05/27/2022 Order Specific Question: Reason for Exam Answer: cva Order Specific Question: Release to patient Answer: Immediate Follow Up Ordered: No follow-ups on file. Fazal Knapp MD Review of Systems Constitutional: Positive for malaise/fatigue. Cardiovascular: Positive for dyspnea on exertion. Negative for chest pain, leg swelling and palpitations. Neurological: Negative for dizziness. documented in this encounter [facility] 03-27-2021 Instructions Melida Weldon MA - 03/27/2021 9:00 AM EST How to Contact your Care Team: Provider: Dr. Fazal Knapp MD Joss House Keeper: Dotty Cardenas RN REFILLS: When in need for refills please call your care team or the office at [phone]. Please include medication name, pharmacy name, and specify 30-day or 90-day supply. Please check with your pharmacy within 24 hours of request for your refill. You must follow up as directed to continue current refills. Thank you! NUCLEAR MEDICINE CARDIAC STRESS TEST THIS IS A 3-4 HOUR TEST Instructions: Appointment Time: , ____/____/____ at ____:____ Prep: DO NOT Take your morning medications. Please bring your morning medications with you. NO CAFFEINE FOR 24 HOURS prior to your test. This includes drinks labeled decaffeinated. Nothing to eat 4 hours prior to your test. A small snack will be provided (crackers, granola bar, juice), or you may bring your own snack for after your stress test. You may drink fluids leading up to your test as long as they are caffeine-free. Decaffeinated drinks still contain some caffeine, please do not drink anything containing caffeine for 24 hours. NO SMOKING the day of your test. Wear comfortable shoes and clothing for exercising. Please wear short sleeves. No metal buttons or snaps. Procedure: Check-in/Registration. Please bring photo ID, insurance cards, and any physician orders. Test explained in detail and IV started. Stress test performed, nuclear medicine will be injected through your IV during the stress test. Stress test recovery period. Heart scan performed. The doctor will review the pictures of your heart and decide if more pictures are needed before you leave. If more are needed you will get another injection of nuclear medicine and this will take an additional hour. The total time for this test is 3-4 hours. There are medications that interfere with this test. You may be instructed to hold medications. If so that will be listed here: __ If you have any further questions please contact your care team or [phone]. Covid Testing Prior to your procedure or test you will need to have a test to rule out Covid 19. This is an oral swab that is done at a drive-up testing site in [place]. You are to have this test completed no earlier than 96 hours but no less than 72 hours before your cardiac procedure or test. The testing site is at [address] [place] [address] in [place]. It is off of [address] between [address] and [facility]. The hours of testing are Thursday-Thursday 7:30-4. No WEEKEND hours will be offered. The order will be entered in our system so you do not need an order to take with you. Please take ID and insurance card. If your test result comes back positive we will notify you. Otherwise please come to your test on the scheduled date and time. Covid Test to be done on . documented in this encounter [facility] 11-11-2021 History of Present illness Narrative Images from the original note were not included. HPI Here with , had stroke in [place] and dr. stahl has been following me since december 2020. Actually has been seeing sae for dementia with 2 drugs for 2 years. bp has been fluctuating and dr. stahl stopped namenda and bp actually is improving. 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 stahl [address] m[address] and [address] bo follows often for hx of skin cancers! 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 1. Small subacute to early chronic ischemic infarct within the posterolateral right frontal lobe. No acute hemorrhage or mass effect. 2. Mild atrophy and chronic small vessel ischemic changes of the supratentorial white matter. DMC/c Principal Problem: TIA (transient ischemic attack) Hypertension REASON FOR HOSPITALIZATION AND ADMITTING DIAGNOSIS: Altered Mental Status and Fatigue TIA (transient ischemic attack) [G45.9] HOSPITAL COURSE: Lexy Beverly is a 65 y.o. male presenting from home with complaint of confusion. Patient states that he was at work, started to forget how to do his job, was unable to check his schedule to see if he had worked. Patient reports that his speech was unclear and he was not making any sense. Pt stated he felt much better today. He is alert and oriented. No speech issue. No weakness of extremities. MR brain: no acute change. Neurology consulted. Pt will be discharged home with neurology outpatient follow up. Continue antihypertensive medication, continue lipitor and baby ASA. Return to ER for any concerns. Vitals: 03/14/21 1442 BP: 136/70 Temp: 98.1 F (36.7 C) Pulse: 79 Resp: 18 SpO2: 96% PT WEIGHT Weight 03/14/2021 149 lb 02/07/2021 140 lb 10/08/2020 140 lb 07/11/2019 146 lb 8 oz BP Readings from Last 4 Encounters: 03/14/21 136/70 10/09/20 (!) 159/84 07/11/19 (!) 163/82 07/05/19 (!) 152/105 Past Medical History: Diagnosis Date Eczema Hypertension Skin cancer Stroke (HCC) 12/2020 TIA (transient ischemic attack) Past Surgical History: Procedure Laterality Date CYST REMOVAL scrotal EXCISION LESION HEAD/NECK Left 07/05/2019 Procedure: EXCISION ATYPICAL SARCOMA OF LEFT CHEEK WITH FULL THICKNESS SKIN GRAFT; Surgeon: Mika Kim DO; Location: [facility] [place] OR; Service: Plastics skin cancer surgery Social History Socioeconomic History Marital status: Spouse name: Not on file Number of children: Not on file Years of education: Not on file Highest education level: Not on file Occupational History Not on file Tobacco Use Smoking status: Never Smoker Smokeless tobacco: Never Used Vaping Use Vaping Use: Never used Substance and Sexual Activity Alcohol use: Never Drug use: Never Sexual activity: Not Currently Partners: Female Other Topics Concern Not on file Social History Narrative Not on file Social Determinants of Health Financial Resource Strain: Difficulty of Paying Living Expenses: Not on file Food Insecurity: Worried About Running Out of Food in the Last Year: Not on file Ran Out of Food in the Last Year: Not on file Transportation Needs: Lack of Transportation (Medical): Not on file Lack of Transportation (Non-Medical): Not on file Physical Activity: Days of Exercise per Week: Not on file Minutes of Exercise per Session: Not on file Stress: Feeling of Stress : Not on file Social Connections: Frequency of Communication with Friends and Family: Not on file Frequency of Social Gatherings with Friends and Family: Not on file Attends Restorationist Services: Not on file Active Member of Clubs or Organizations: Not on file Attends Club or Organization Meetings: Not on file Marital Status: Not on file Housing Stability: Unable to Pay for Housing in the Last Year: Not on file Number of Places Lived in the Last Year: Not on file Unstable Housing in the Last Year: Not on file Family History Problem Relation Age of Onset Lymphoma Mother Skin cancer Mother Hypertension Mother Pancreatic cancer Father Current Outpatient Medications Medication Sig Dispense Refill aspirin 81 MG EC tablet Take 81 mg by mouth daily . clonazePAM (KLONOPIN) 0.5 MG tablet Take 0.5 mg by mouth at bedtime . donepeziL (ARICEPT) 10 MG tablet Take 10 mg by mouth nightly . dupilumab (Dupixent Syringe) 300 mg/2 mL Syrg Inject 300 mg under the skin every 14 (fourteen) days Every other Thursday . enalapril (VASOTEC) 20 MG tablet Take 20 mg by mouth daily . glucosamine-chondroitin 500-400 mg tablet Take 1 tablet by mouth 3 (three) times a day Taking 2 times daily- Replenex . hydroCHLOROthiazide (HYDRODIURIL) 12.5 MG tablet Take 12.5 mg by mouth daily . multivitamin with minerals tablet Take 1 tablet by mouth daily . triamcinolone (KENALOG) 0.1 % cream Apply 1 application topically 2 (two) times a day as needed . albuterol 90 mcg/actuation inhaler Inhale 1 puff every 4 to 6 hours as needed for shortness of breath . atorvastatin (LIPITOR) 80 MG tablet Take 0.5 (one-half) tablet (40 mg total) by mouth nightly . (Patient not taking: Reported on 03/14/2021 .) 30 tablet 11 memantine (NAMENDA) 10 MG tablet Take 10 mg by mouth 2 (two) times a day . tadalafiL (CIALIS) 5 MG tablet No current facility-administered medications for this visit. PHQ-9 Depression Screening No documentation. Goals None Review of Systems Constitutional: Negative. HENT: Negative. Respiratory: Negative. Cardiovascular: Negative. Gastrointestinal: Negative. Genitourinary: Negative. Musculoskeletal: Negative. Neurological: Left side of face and little tremor. Hematological: Negative. Psychiatric/Behavioral: Positive for confusion. Physical Exam Vitals reviewed. Constitutional: Appearance: He is well-developed. HENT: Head: Normocephalic and atraumatic. Right Ear: External ear normal. Left Ear: External ear normal. Nose: Nose normal. Eyes: Conjunctiva/sclera: Conjunctivae normal. Pupils: Pupils are equal, round, and reactive to light. Cardiovascular: Rate and Rhythm: Normal rate and regular rhythm. Heart sounds: Normal heart sounds. No murmur heard. Pulmonary: Effort: Pulmonary effort is normal. Breath sounds: Normal breath sounds. No wheezing. Chest: Chest wall: No tenderness. Abdominal: General: Bowel sounds are normal. Palpations: Abdomen is soft. There is no mass. Tenderness: There is no abdominal tenderness. There is no guarding or rebound. Musculoskeletal: General: No tenderness or deformity. Cervical back: Normal range of motion and neck supple. Lymphadenopathy: Cervical: No cervical adenopathy. Skin: General: Skin is warm and dry. Findings: No rash. Neurological: Mental Status: He is alert and oriented to person, place, and time. Mental status is at baseline. Deep Tendon Reflexes: Reflexes are normal and symmetric. Psychiatric: Mood and Affect: Mood normal. Behavior: Behavior normal. Thought Content: Thought content normal. Judgment: Judgment normal. There are no diagnoses linked to this encounter. Diagnoses and all orders for this visit: Primary hypertension cont same for now stable - enalapril (VASOTEC) 20 MG tablet; Take 1 (one) tablet (20 mg total) by mouth daily . - hydroCHLOROthiazide (HYDRODIURIL) 12.5 MG tablet; Take 1 (one) tablet (12.5 mg total) by mouth daily . Erectile dysfunction, unspecified erectile dysfunction type - tadalafiL (CIALIS) 5 MG tablet; Take 1 (one) tablet (5 mg total) by mouth daily as needed for erectile dysfunction . For any new medications prescribed today, patient was educated about indications for the medication, how to take the medication and potential side effects of the medications. Depression Screening 03/14/2021 Little interest or pleasure in doing things 0 Feeling down, depressed, or hopeless 1 PHQ-2 Total Score 1 Trouble falling or staying asleep, or sleeping too much 0 Feeling tired or having little energy 0 Poor appetite or overeating 0 Feeling bad about yourself - or that you are a failure or have let yourself or your family down 0 Trouble concentrating on things, such as reading the newspaper or watching television 1 Moving or speaking so slowly that other people could have noticed. Or the opposite - being so fidgety or restless that you have been moving around a lot more than usual 1 Thoughts that you would be better off , or of hurting yourself in some way 0 PHQ-9 Total Score 3 If you checked off any problems, how difficult have these problems made it for you to do your work, take care of things at home, or get along with other people? Somewhat difficult documented in this encounter [facility] Evaluation note Diagnosis Primary hypertension- Primary Unspecified essential hypertension Erectile dysfunction, unspecified erectile dysfunction type [facility] Cerebrovascular accident (CVA), unspecified mechanism (HCC) Right bundle branch block Abnormal ECG Nonspecific abnormal electrocardiogram (ECG) (EKG) Cerebrovascular accident (CVA), unspecified mechanism (HCC) Right bundle branch block Abnormal ECG Nonspecific abnormal electrocardiogram (ECG) (EKG) [facility] Primary hypertension- Primary Unspecified essential hypertension Erectile dysfunction, unspecified erectile dysfunction type Prostate cancer screening Special screening for malignant neoplasm of prostate Senile dementia, uncomplicated (HCC) Senile dementia, uncomplicated [facility] [place] [facility] Diagnosis Primary hypertension- Primary Unspecified essential hypertension Erectile dysfunction, unspecified erectile dysfunction type Screen for colon cancer Special screening for malignant neoplasms, colon [facility] Diagnosis Primary hypertension Unspecified essential hypertension [facility] [place] [facility]* Diagnosis Primary hypertension- Primary Unspecified essential hypertension Fatigue, unspecified type Senile dementia, uncomplicated (HCC) Senile dementia, uncomplicated Erectile dysfunction, unspecified erectile dysfunction type At low risk for fall Prostate cancer screening Special screening for malignant neoplasm of prostate [facility] Diagnosis Primary hypertension- Primary Unspecified essential hypertension Fatigue, unspecified type Senile dementia, uncomplicated (HCC) Senile dementia, uncomplicated Erectile dysfunction, unspecified erectile dysfunction type At low risk for fall Prostate cancer screening Special screening for malignant neoplasm of prostate [facility] Diagnosis Primary hypertension- Primary Unspecified essential hypertension Fatigue, unspecified type Erectile dysfunction, unspecified erectile dysfunction type Dementia in other diseases classified elsewhere, mild, with mood disturbance (HCC) Prostate cancer screening Special screening for malignant neoplasm of prostate [facility] Diagnosis Primary hypertension- Primary Unspecified essential hypertension Fatigue, unspecified type Erectile dysfunction, unspecified erectile dysfunction type Dementia in other diseases classified elsewhere, mild, with mood disturbance (HCC) Prostate cancer screening Special screening for malignant neoplasm of prostate [facility] Diagnosis 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 [facility] Diagnosis Cerebrovascular accident (CVA), unspecified mechanism (HCC) Right bundle branch block Abnormal ECG Nonspecific abnormal electrocardiogram (ECG) (EKG) 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- Primary Primary hypertension Unspecified essential hypertension Erectile dysfunction, unspecified erectile dysfunction type Dementia in other diseases classified elsewhere, mild, with mood disturbance (HCC) Primary hypertension- Primary Unspecified essential hypertension Fatigue, unspecified type Erectile dysfunction, unspecified erectile dysfunction type Dementia in other diseases classified elsewhere, mild, with mood disturbance (HCC) Prostate cancer screening Special screening for malignant neoplasm of prostate Erectile dysfunction, unspecified erectile dysfunction type [facility] Diagnosis Cerebrovascular accident (CVA), unspecified mechanism (HCC) Right bundle branch block Abnormal ECG Nonspecific abnormal electrocardiogram (ECG) (EKG) 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- Primary Primary hypertension Unspecified essential hypertension Erectile dysfunction, unspecified erectile dysfunction type Dementia in other diseases classified elsewhere, mild, with mood disturbance (HCC) Primary hypertension- Primary Unspecified essential hypertension Fatigue, unspecified type Erectile dysfunction, unspecified erectile dysfunction type Dementia in other diseases classified elsewhere, mild, with mood disturbance (HCC) Prostate cancer screening Special screening for malignant neoplasm of prostate 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 [facility] [place] [facility] Diagnosis Cerebrovascular accident (CVA), unspecified mechanism (HCC) Right bundle branch block Abnormal ECG Nonspecific abnormal electrocardiogram (ECG) (EKG) 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- Primary Primary hypertension Unspecified essential hypertension Erectile dysfunction, unspecified erectile dysfunction type Dementia in other diseases classified elsewhere, mild, with mood disturbance (HCC) Primary hypertension- Primary Unspecified essential hypertension Fatigue, unspecified type Erectile dysfunction, unspecified erectile dysfunction type Dementia in other diseases classified elsewhere, mild, with mood disturbance (HCC) Prostate cancer screening Special screening for malignant neoplasm of prostate Erectile dysfunction, unspecified erectile dysfunction type [facility] Diagnosis Cerebrovascular accident (CVA), unspecified mechanism (HCC) Right bundle branch block Abnormal ECG Nonspecific abnormal electrocardiogram (ECG) (EKG) 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- Primary Primary hypertension Unspecified essential hypertension Erectile dysfunction, unspecified erectile dysfunction type Dementia in other diseases classified elsewhere, mild, with mood disturbance (HCC) Primary hypertension- Primary Unspecified essential hypertension Fatigue, unspecified type Erectile dysfunction, unspecified erectile dysfunction type Dementia in other diseases classified elsewhere, mild, with mood disturbance (HCC) Prostate cancer screening Special screening for malignant neoplasm of prostate Primary hypertension- Primary Unspecified essential hypertension Dementia in other diseases classified elsewhere, mild, with mood disturbance (HCC) Hypercholesterolemia Pure hypercholesterolemia Prostate cancer screening Special screening for malignant neoplasm of prostate At low risk for fall 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 [facility] Diagnosis Cerebrovascular accident (CVA), unspecified mechanism (HCC) Right bundle branch block Abnormal ECG Nonspecific abnormal electrocardiogram (ECG) (EKG) 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- Primary Primary hypertension Unspecified essential hypertension Erectile dysfunction, unspecified erectile dysfunction type Dementia in other diseases classified elsewhere, mild, with mood disturbance (HCC) Primary hypertension- Primary Unspecified essential hypertension Fatigue, unspecified type Erectile dysfunction, unspecified erectile dysfunction type Dementia in other diseases classified elsewhere, mild, with mood disturbance (HCC) Prostate cancer screening Special screening for malignant neoplasm of prostate Primary hypertension- Primary Unspecified essential hypertension Dementia in other diseases classified elsewhere, mild, with mood disturbance (HCC) Hypercholesterolemia Pure hypercholesterolemia Prostate cancer screening Special screening for malignant neoplasm of prostate At low risk for fall 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 Erectile dysfunction, unspecified erectile dysfunction type [facility] Diagnosis Cerebrovascular accident (CVA), unspecified mechanism (HCC) Right bundle branch block Abnormal ECG Nonspecific abnormal electrocardiogram (ECG) (EKG) 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- Primary Primary hypertension Unspecified essential hypertension Erectile dysfunction, unspecified erectile dysfunction type Dementia in other diseases classified elsewhere, mild, with mood disturbance (HCC) Primary hypertension- Primary Unspecified essential hypertension Fatigue, unspecified type Erectile dysfunction, unspecified erectile dysfunction type Dementia in other diseases classified elsewhere, mild, with mood disturbance (HCC) Prostate cancer screening Special screening for malignant neoplasm of prostate Primary hypertension- Primary Unspecified essential hypertension Dementia in other diseases classified elsewhere, mild, with mood disturbance (HCC) Hypercholesterolemia Pure hypercholesterolemia Prostate cancer screening Special screening for malignant neoplasm of prostate At low risk for fall 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 [facility] Diagnosis Cerebrovascular accident (CVA), unspecified mechanism (HCC) Right bundle branch block Abnormal ECG Nonspecific abnormal electrocardiogram (ECG) (EKG) 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- Primary Primary hypertension Unspecified essential hypertension Erectile dysfunction, unspecified erectile dysfunction type Dementia in other diseases classified elsewhere, mild, with mood disturbance (HCC) Primary hypertension- Primary Unspecified essential hypertension Fatigue, unspecified type Erectile dysfunction, unspecified erectile dysfunction type Dementia in other diseases classified elsewhere, mild, with mood disturbance (HCC) Prostate cancer screening Special screening for malignant neoplasm of prostate Primary hypertension- Primary Unspecified essential hypertension Dementia in other diseases classified elsewhere, mild, with mood disturbance (HCC) Hypercholesterolemia Pure hypercholesterolemia Prostate cancer screening Special screening for malignant neoplasm of prostate At low risk for fall 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 [facility] Diagnosis Cerebrovascular accident (CVA), unspecified mechanism (HCC) Right bundle branch block Abnormal ECG Nonspecific abnormal electrocardiogram (ECG) (EKG) 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- Primary Primary hypertension Unspecified essential hypertension Erectile dysfunction, unspecified erectile dysfunction type Dementia in other diseases classified elsewhere, mild, with mood disturbance (HCC) Primary hypertension- Primary Unspecified essential hypertension Fatigue, unspecified type Erectile dysfunction, unspecified erectile dysfunction type Dementia in other diseases classified elsewhere, mild, with mood disturbance (HCC) Prostate cancer screening Special screening for malignant neoplasm of prostate Primary hypertension- Primary Unspecified essential hypertension Dementia in other diseases classified elsewhere, mild, with mood disturbance (HCC) Hypercholesterolemia Pure hypercholesterolemia Prostate cancer screening Special screening for malignant neoplasm of prostate At low risk for fall 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 Routine general medical examination at a health care facility- Primary At low risk for fall Screen for colon cancer Special screening for malignant neoplasms, colon 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 documented in this encounter [facility] Summary Purpose Family History No Family History Records FoundNo Family History Records FoundNo Family History Records FoundNo Family History Records FoundNo Family History Records FoundNo Family History Records FoundNo Family History Records Found Advance Directives No Advanced Directives Records FoundDocuments on File Type Date Recorded Patient Cabin Agent Expl anation Advance Directives and Livin g Will 05/27/2019 3:23 PM Documents on File Type Date Recorded Patient Cabin Agent Expl anation Advance Directives and Livin g Will 07/05/2019 12:24 PM Documents on File Type Date Recorded Patient Cabin Agent Expl anation Advance Directives and Livin g Will 07/05/2019 12:24 PM Documents on File Type Date Recorded Patient Cabin Agent Expl anation Advance Directives and Livin g Will 05/27/2019 3:23 PM Documents on File Type Date Recorded Patient Cabin Agent Expl anation Advance Directives and Livin g Will 08/13/2020 12:24 PM Documents on File Type Date Recorded Patient Cabin Agent Expl anation Advance Directives and Livin g Will 10/08/2020 3:17 PM Latest Code Status on File Code Status Date Activated Date Inactivated Comments Full Code 10/08/2020 5:59 PM 10/09/2020 6:57 PM Full Code - Unverified 10/08/2020 5:11 PM 10/08/2020 5:58 PM Documents on File Type Date Recorded Patient Cabin Agent Expl anation Advance Directives and Livin g Will 02/07/2021 9:25 AM Latest Code Status on File Code Status Date Activated Date Inactivated Comments Full Code 10/08/2020 5:59 PM 10/09/2020 6:57 PM Full Code - Unverified 10/08/2020 5:11 PM 10/08/2020 5:58 PM Documents on File Type Date Recorded Patient Cabin Agent Expl anation Advance Directives and Livin g Will 03/29/2021 9:25 AM Documents on File Type Date Recorded Patient Cabin Agent Expl anation Advance Directives and Livin g Will 04/05/2021 8:15 AM Latest Code Status on File Date Activated Date Inactivated Comments 10/08/2020 5:59 PM 10/09/2020 6:57 PM Full Code - Unverified Date Activated Date Inactivated Comments 10/08/2020 5:11 PM 10/08/2020 5:58 PM Latest Code Status on File Code Status Date Activated Date Inactivated Comments Full Code 10/08/2020 5:59 PM 10/09/2020 6:57 PM Code Status History Code Status Date Activated Date Inactivated Comments Full Code - Unverified 10/08/2020 5:11 PM 10/08/2020 5:58 PM Date Activated Date Inactivated Comments 10/08/2020 5:59 PM 10/09/2020 6:57 PM Date Activated Date Inactivated Comments 10/08/2020 5:11 PM 10/08/2020 5:58 PM Date Activated Date Inactivated Comments 10/08/2020 5:59 PM 10/09/2020 6:57 PM Date Activated Date Inactivated Comments 10/08/2020 5:11 PM 10/08/2020 5:58 PM Instructions * Patient Instructions* Everardo Heath Jr., MD - 06/17/2019 2:36 PM EST Plan: 1. DISCUSS SENTINEL LYMPH NODE WITH WDIE RESECTION WITH DR. SAAB 2. AWAIT RESULTS OF WIDE EXCISION FOR BOTH ADDITIONAL PATHOLOGIC CLASSIFICATION AND DEPTHS OF INVASION 3. OFFICE APPOINTMENT 4 WEEKS documented in this encounter* Patient Instructions* Everardo Heath Jr., MD - 08/22/2019 3:58 PM EDT Plan: 1. Continue follow-up as needed with Dr. Kim 2. Continue follow-up with Dr. Langston 3. Return only as needed documented in this encounter* Patient Instructions* Everardo Heath Jr., MD - 07/11/2019 3:45 PM EDT Plan: OFFICE APPOINTMENT 4-6 WEEKS TO DISCUSS PATH documented in this encounter History of Present Illness * Everardo Heath Jr., MD - 06/17/2019 2:04 PM EST Subjective: NOTICED A RED [id number] STARTED GROWING RAPIDLY WITH WEB LIKE PARESTHESIAS; RESECTED BY DR. CHAIREZ May; STARTED REGROWING ABOUT 2 WEEKS AFTER SURGERY; REPEAT RESECTION SCHEDULED FOR TUESDAY, June 19, 2018. CURRENTLY ON A STUDY FOR A ECZEMA (ATOPIC ECZEMA) WITH PFIZER (ABROCITINIB) MELISSA inhibitor. Previous history of squamous and basal cell skin cancers. Has had multiple ones burned off with liuid nitrogen, and 5 - 6 surgeries over the last 5 years for basal cell and squamous cell cancer. HPI: Patient ID: Lexy Beverly is a 63 y.o. male. 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 As noted above he began to have a red pimple-like spot on his left cheek that grew rapidly. On one of his mail deliveries to Dr. Kim's office, Dr. Kim examined this abnormal skin lesion and made arrangements for the patient to have an excision. On May 13, 2019 the patient underwent an excision of a lesion of his left cheek measuring 1.7 x1.9 cm with layered closure. The excisional biopsy was initially [facility] whereAyo Vivas MD interpreted as an ulcerated malignant dermal spindle cell proliferation. Dr. 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 The MART-1, SOX10, cytokeratin 5/5, high molecular weight keratin, desmin, and smooth muscle actinstains were negative. The same biopsy was reviewed at the [facility] dermatology and oral pathology laboratory. 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 His note indicated this lesion had an immunophenotype in keeping with an atypical fibroxanthoma. As it involves the subcutis, Dr. Praful Majano and others advocate using the term, pleomorphic dermal sarcoma or pleomorphic undifferentiated sarcoma rather than atypical fibroxanthoma, which was historically considered a pseudo-malignancy. As the morphologic features of the 2 neoplasms (AFX and AFX with subcutaneous involvement) are similar, and recent studies have shown similar genomic traits, having [address] Gordon as logical. He stated that certainly involvement of the subcutis raises the metastatic potential of the neoplasm, but metastases have been seen with dermally based atypical fibroxanthomes. Dr. Gordon does not see findings that would imply another type of sarcoma, or that this is melanomawith sarcomatoid dedifferentiation. The neoplasm is close to a dermal margin, and essentially reaches the deep margin, so additional surgery seems prudent. Problem Sarcoma of Face (Hcc) Past Medical History: Diagnosis Date Hypertension Skin cancer Past Surgical History: Procedure Laterality Date CYST REMOVAL skin cancer surgery Family History Problem Relation Age of Onset Lymphoma Mother Skin cancer Mother Hypertension Mother Pancreatic cancer Father Social History Socioeconomic History Marital status: Spouse name: Not on file Number of children: Not on file Years of education: Not on file Highest education level: Not on file Occupational History Not on file Social Needs Financial resource strain: Not on file Food insecurity Worry: Not on file Inability: Not on file Transportation needs Medical: Not on file Non-medical: Not on file Tobacco Use Smoking status: Never Smoker Smokeless tobacco: Never Used Substance and Sexual Activity Alcohol use: Never Frequency: Never Drug use: Never Sexual activity: Not Currently Partners: Female Lifestyle Physical activity Days per week: Not on file Minutes per session: Not on file Stress: Not on file Relationships Social connections Talks on phone: Not on file Gets together: Not on file Attends sikh service: Not on file Active member of club or organization: Not on file Attends meetings of clubs or organizations: Not on file Relationship status: Not on file Other Topics Concern Not on file Social History Narrative Not on file Allergies Allergen Reactions Latex Rash Current Outpatient Medications Medication Sig Dispense Refill albuterol 90 mcg/actuation inhaler enalapril (VASOTEC) 20 MG tablet hydroCHLOROthiazide (HYDRODIURIL) 12.5 MG tablet oxybutynin (DITROPAN) 5 MG tablet Take 5 mg by mouth 2 (two) times a day . No current facility-administered medications for this visit. Review of Systems Constitutional: Negative for chills, fatigue, fever and unexpected weight change. HENT: Negative for ear pain and trouble swallowing. Eyes: Negative for pain and discharge. Respiratory: Positive for shortness of breath. Negative for cough and wheezing. SOB IN COLD TEMPERATURES Cardiovascular: Negative for chest pain, palpitations and leg swelling. Gastrointestinal: Negative for abdominal pain, constipation, diarrhea, nausea and vomiting. Endocrine: Negative for cold intolerance and heat intolerance. Genitourinary: Negative for difficulty urinating and dysuria. Musculoskeletal: Negative for arthralgias, back pain and gait problem. Skin: Negative for rash. Allergic/Immunologic: Negative for environmental allergies and food allergies. Neurological: Negative for dizziness, weakness and headaches. MEMORY LOSS Hematological: Negative for adenopathy. Bruises/bleeds easily. Psychiatric/Behavioral: Negative for confusion and sleep disturbance. Objective: BP 118/74 (BP Location: Right arm) Pulse 77 Temp 98.7 F (37.1 C) (Oral) Ht 5' 9" Wt 66.3 kg(146 lb 3.2 oz) SpO2 95% BMI 21.59 kg/m Physical Exam Constitutional: He is oriented to person, place, and time. He appears well- developed and well-nourished. No distress. HENT: Head: Normocephalic and atraumatic. Eyes: Pupils are equal, round, and reactive to light. Neck: Normal range of motion. Neck supple. Cardiovascular: Normal rate, regular rhythm and normal heart sounds. No murmur heard. Pulmonary/Chest: Effort normal and breath sounds normal. He has no wheezes. He has no rales. Abdominal: Soft. Bowel sounds are normal. He exhibits no mass. There is no splenomegaly or hepatomegaly. There is no abdominal tenderness. There is no guarding. Lymphadenopathy: He has no cervical adenopathy. Neurological: He is alert and oriented to person, place, and time. Skin: Skin is warm and dry. No rash noted. No erythema. Psychiatric: He has a normal mood and affect. His behavior is normal. Judgment and thought content normal. Nursing note and vitals reviewed. Assessment/Plan: Diagnoses and all orders for this visit: Sarcoma of face (HCC) After the patient's visit today I called Dr. Kim, and recommended a sentinel lymph node biopsy as part of the wide resection. He indicated that he would make arrangements for this to be done in [place]. Plan: 1. DISCUSS SENTINEL LYMPH NODE WITH WDIE RESECTION WITH DR. SAAB 2. AWAIT RESULTS OF WIDE EXCISION FOR BOTH ADDITIONAL PATHOLOGIC CLASSIFICATION AND DEPTHS OF INVASION 3. OFFICE APPOINTMENT 4 WEEKS documented in this encounter* Everardo Heath Jr., MD - 08/22/2019 3:32 PM EDT Telephone Visit Via Phone Call Patient ID: Lexy Beverly is a 64 y.o. male on the phone for a sick visit Patient phone : [phone] This visit has been fully reviewed with the patient and verbal consent has been obtained. HPI The patient is seen in follow-up after a second opinion by Dr. Yesi Churchill at [facility], followed by a second resection by Dr. Kim. The path report on the second resection is as follows: Specimens A Cheek, Left, slit @ 12 oclock . . Final Diagnosis A. Skin, Left Cheek, excision: 1. Changes consistent with previous biopsy site. No evidence of residual atypical spindle cell lesion. 2. 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 The margins are uninvolved by squamous cell carcinoma in-situ. 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 Kim earlier this morning. He will continue with Dr. Langston for 6-month checkups and skin examination in view of his multipleskin cancers. No further adjuvant therapy is needed at this time. The following portions of the patient's history were reviewed and updated as appropriate: Allergies, current home medications, past medical history, and past surgical history. Review of Systems Constitutional: Negative for chills, fatigue, fever and unexpected weight change. HENT: Negative for ear pain and trouble swallowing. Eyes: Negative for pain and discharge. Respiratory: Negative for cough, shortness of breath and wheezing. Cardiovascular: Negative for chest pain, palpitations and leg swelling. Gastrointestinal: Negative for abdominal pain, constipation, diarrhea, nausea and vomiting. One episode of diarrhea last week when he ate at a roadside restaurant Endocrine: Negative for cold intolerance and heat intolerance. Genitourinary: Negative for difficulty urinating and dysuria. Nocturia x0 Musculoskeletal: Negative for arthralgias, back pain and gait problem. Skin: Negative for rash. Allergic/Immunologic: Negative for environmental allergies and food allergies. Neurological: Negative for dizziness, weakness and headaches. Hematological: Negative for adenopathy. Does not bruise/bleed easily. Psychiatric/Behavioral: Negative for confusion and sleep disturbance. Patient's Medications New Prescriptions No medications on file Previous Medications ALBUTEROL 90 MCG/ACTUATION INHALER DONEPEZIL (ARICEPT) 10 MG TABLET Take 10 mg by mouth nightly . DONEPEZIL (ARICEPT) 5 MG TABLET Take 5 mg by mouth nightly . ENALAPRIL (VASOTEC) 20 MG TABLET HYDROCHLOROTHIAZIDE (HYDRODIURIL) 12.5 MG TABLET MULTIVITAMIN WITH MINERALS TABLET Take 1 tablet by mouth daily . OXYBUTYNIN (DITROPAN) 5 MG TABLET Take 5 mg by mouth 2 (two) times a day . TRIAMCINOLONE (KENALOG) 0.1 % CREAM Modified Medications No medications on file Discontinued Medications No medications on file Assessment/Plan: 1. Xanthoma Plan: 1. Continue follow-up as needed with Dr. Kim 2. Continue follow-up with Dr. Langston 3. Return only as needed Provider location: [facility] [address] (11) [facility] [address] [facility] [address] Patient location: [address] [place] [address] I have spent 11-20 minutes with the patient discussing current HPI. There are other unrelated non-urgent complaints, but due to the busy schedule and the amount of time I've already spent with him, time does not permit me to address these routine issues at today's visit. I've requested another appointment to review these additional issues. documented in this encounter* Ivana, Everardo Luong Jr., MD - 07/11/2019 3:26 PM EDT Subjective: Patient returns after wide excision of left cheek skin lesion, possible sarcoma, on July 05, 2019 with skin graft from the left upper anterior chest wall to the left cheek. Dr. Churchill didnot feel the sentinel lymph node study was indicated. Final path results are still pending at the time of this dictation. Patient ID: Lexy Beverly is a 64 y.o. male. HPI: RETURNS IN FOLLOW-UP OF UNDIFFERENTIATED SARCOMA OF THE LEFT CHEEK. Patient ID: Lexy Beverly is a 63 y.o. male. 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 As noted above he began to have a red pimple-like spot on his left cheek that grew rapidly. On one of his mail deliveries to Dr. Kim's office, Dr. Kim examined this abnormal skin lesion and made arrangements for the patient to have an excision. On May 13, 2019 the patient underwent an excision of a lesion of his left cheek measuring 1.7 x1.9 cm with layered closure. The excisional biopsy was initially sent to the [facility] whereAyo Vivas MD interpreted as an ulcerated malignant dermal spindle cell proliferation. Dr. 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 The MART-1, SOX10, cytokeratin 5/5, high molecular weight keratin, desmin, and smooth muscle actinstains were negative. The same biopsy was reviewed at the [facility] dermatology and oral pathology laboratory. 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 His note indicated this lesion had an immunophenotype in keeping with an atypical fibroxanthoma. As it involves the subcutis, Dr. Praful Majano and others advocate using the term, pleomorphic dermal sarcoma or pleomorphic undifferentiated sarcoma rather than atypical fibroxanthoma, which was historically considered a pseudo-malignancy. As the morphologic features of the 2 neoplasms (AFX and AFX with subcutaneous involvement) are similar, and recent studies have shown similar genomic traits, having [address] Gordon as logical. He stated that certainly involvement of the subcutis raises the metastatic potential of the neoplasm, but metastases have been seen with dermally based atypical fibroxanthomes. Dr. Gordon does not see findings that would imply another type of sarcoma, or that this is melanomawith sarcomatoid dedifferentiation. The neoplasm is close to a dermal margin, and essentially reaches the deep margin, so additional surgery seems prudent. The following portions of the patient's history were reviewed and updated as appropriate: allergies, current medications, past family history, past social history, past surgical history and problem list. Review of Systems Constitutional: Negative for chills, fatigue, fever and unexpected weight change. HENT: Negative for ear pain and trouble swallowing. Eyes: Negative for pain and discharge. Respiratory: Negative for cough, shortness of breath and wheezing. Cardiovascular: Negative for chest pain, palpitations and leg swelling. Gastrointestinal: Negative for abdominal pain, constipation, diarrhea, nausea and vomiting. Endocrine: Negative for cold intolerance and heat intolerance. Genitourinary: Negative for difficulty urinating and dysuria. Musculoskeletal: Negative for arthralgias, back pain and gait problem. Skin: Negative for rash. Allergic/Immunologic: Negative for environmental allergies and food allergies. Neurological: Negative for dizziness, weakness and headaches. Hematological: Negative for adenopathy. Does not bruise/bleed easily. Psychiatric/Behavioral: Negative for confusion and sleep disturbance. Objective: BP (!) 163/82 (BP Location: Left arm) Pulse 68 Temp 97.7 F (36.5 C) (Oral) Ht 5' 9" Wt 66.5kg (146 lb 8 oz) SpO2 98% BMI 21.63 kg/m Physical Exam Constitutional: He is oriented to person, place, and time. He appears well- developed and well-nourished. No distress. HENT: Head: Normocephalic and atraumatic. Eyes: Pupils are equal, round, and reactive to light. Neck: Normal range of motion. Neck supple. Cardiovascular: Normal rate, regular rhythm and normal heart sounds. No murmur heard. Pulmonary/Chest: Effort normal and breath sounds normal. He has no wheezes. He has no rales. Abdominal: Soft. Bowel sounds are normal. He exhibits no mass. There is no splenomegaly or hepatomegaly. There is no abdominal tenderness. There is no guarding. Lymphadenopathy: He has no cervical adenopathy. Neurological: He is alert and oriented to person, place, and time. Skin: Skin is warm and dry. No rash noted. No erythema. Recent wide excision over left cheek with skin graft Psychiatric: He has a normal mood and affect. His behavior is normal. Judgment and thought content normal. Nursing note and vitals reviewed. Assessment/Plan: Diagnoses and all orders for this visit: Sarcoma of face (HCC) Plan: OFFICE APPOINTMENT 4-6 WEEKS TO DISCUSS PATH documented in this encounter Assessments Diagnosis Sarcoma of face (HCC) Diagnosis Xanthoma Mixed hyperlipidemia Diagnosis Senile dementia, uncomplicated (HCC) Senile dementia, uncomplicated Diagnosis NATASHA (obstructive sleep apnea)- Primary Obstructive sleep apnea (adult) (pediatric) Diagnosis NATASHA (obstructive sleep apnea)- Primary Obstructive sleep apnea (adult) (pediatric) Diagnosis NATASHA (obstructive sleep apnea) Obstructive sleep apnea (adult) (pediatric) Reason for Referral Status Reason Specialty Diagnoses / Procedures Referre d By Contact Referred To Contact Closed Radiology Diagnoses Senile dementia, uncomplicated (HCC) Procedures MR Brain With And Without Contrast Dayana Stahl MD [address] [place] [address] Status Reason Specialty Diagnoses / Procedures Referred By Contact Referred To Contact Authorized Sleep Medicine Diagnoses NATASHA (obstructive sleep apnea) NATASHA PARASOMNIA Procedures POLYSOMNOGRAPHY 4 OR MORE PARAMETERS PSG William Galvan MD [address] [place] [address] Sleep Medicine [address] [place] [address] Status Reason Specialty Diagnoses / Procedures Referred By Contact Referred To Contact Closed Sleep Medicine Diagnoses NATASHA (obstructive sleep apnea) NATASHA PARASOMNIA Procedures POLYSOMNOGRAPHY 4 OR MORE PARAMETERS PSG William Galvan MD [address] [place] [address] Sleep Medicine [address] [place] [address] Specialty Diagnoses / Procedures Referred By Contac t Referred To Contact Cardiology Diagnoses Cerebrovascular accident (CVA), unspecified mechanism (HCC) Procedures Ultrasound doppler carotid Fazal Knapp MD [address] [address] Referral ID Status Reason Start Date Expiration Date V isits Requested Visits Authorized [id number] Authorized 03/27/2021 03/27/2022 1 1 Specialty Diagnoses / Procedures Referred By Contac t Referred To Contact Cardiology Diagnoses Cerebrovascular accident (CVA), unspecified mechanism (HCC) Right bundle branch block Abnormal ECG Procedures Cardiac event monitor Fazal Knapp MD [address] [address] Referral ID Status Reason Start Date Expiration Date V isits Requested Visits Authorized [id number] Pending Review 03/27/2021 03/27/2022 1 1 Specialty Diagnoses / Procedures Referred By Contac t Referred To Contact Cardiology Diagnoses Abnormal ECG Procedures Echocardiogram complete Fazal Knapp MD [address] [address] Referral ID Status Reason Start Date Expiration Date V isits Requested Visits Authorized [id number] Authorized 03/27/2021 03/27/2022 1 1 Specialty Diagnoses / Procedures Referred By Contac t Referred To Contact Radiology Diagnoses Abnormal ECG Procedures NM Myocardial Perfusion Multiple SPECT Fazal Knapp MD [address] [address] Referral ID Status Reason Start Date Expiration Date V isits Requested Visits Authorized [id number] Pending Review 03/27/2021 03/27/2022 4 4 Additional Source Comments (unrecognized sect ion and content) No Status Records FoundNo Status Records FoundNo Status Records FoundNo Status Records FoundNo Status Records FoundNo Status Records FoundNo Status Records Found INFORMATION SOURCE (unrecogn ized section and content) DATE CREATED AUTHOR 06/22/2018 [facility] DATE CREATED AUTHOR AUTHOR'S ORGANIZ ATION 03/05/2021 [facility] DATE CREATED AUTHOR AUTHOR'S ORGANIZ ATION 07/25/2021 [facility] DATE CREATED AUTHOR AUTHOR'S ORGANIZ ATION 08/08/2022 [facility] DATE CREATED AUTHOR AUTHOR'S ORGANIZ ATION 07/23/2024 [facility] DATE CREATED AUTHOR AUTHOR'S ORGANIZ ATION 10/06/2024 [facility] DATE CREATED AUTHOR AUTHOR'S ORGANIZ ATION 02/15/2025 [facility] Reason for Visit (unrecogniz ed section and content) Reason Comments SPINDLE DERMAL CELL NEW CONSULT DR FRANCIS RAUSCH lt cheek Status Reason Specialty Diagnoses / Procedures Referre d By Contact Referred To Contact Diagnoses ATYPICAL SARCOMA Procedures EXCISION ATYPICAL SARCOMA OF LEFT CHEEK WITH POSSIBLE FULL THICKNESS SKIN GRAFT Reason Comments SARCOMA OF FACE 4 WK Status Reason Specialty Diagnoses / Procedures Referre d By Contact Referred To Contact Closed Radiology Diagnoses Senile dementia, uncomplicated (HCC) Procedures MR Brain With And Without Contrast Dayana Stahl MD [address] [place] [address] Status Reason Specialty Diagnoses / Procedures Referred By Contact Referred To Contact Closed Sleep Medicine Diagnoses NATASHA (obstructive sleep apnea) NATASHA PARASOMNIA Procedures POLYSOMNOGRAPHY 4 OR MORE PARAMETERS PSG William Galvan MD [address] [place] [address] Sleep Medicine [address] [place] [address] Status Reason Specialty Diagnoses / Procedures Referre d By Contact Referred To Contact Diagnoses TIA (transient ischemic attack) Reason Comments Establish Care Sob w/ exertion, fat igue, BP fluctuating, hospital discharge 10/09/20 TIA Specialty Diagnoses / Procedures Referred By Contac t Referred To Contact Cardiology Diagnoses Cerebrovascular accident (CVA), unspecified mechanism (HCC) Right bundle branch block Dayana Stahl MD [address] [address] [facility] [address] [place] [address] Referral ID Status Reason Start Date Expiration Date V isits Requested Visits Authorized [id number] Pending Review 02/13/2021 02/13/2022 1 1 Reason Comments Medication Refill Reason Onset Date Comments Fall Risk Screening 08/01/2022 Reason Comments Med Change Request Reason Comments Medication Refill Reason Onset Date Comments Fall Risk Screening 07/21/2024 Reason Onset Date Comments Medication Refill 11/17/2024 Reason Onset Date Comments MWV OUTREACH 01/16/2025 APPT 01/18/25 Reason Onset Date Comments Fall Risk Screening 01/18/2025 Mika Kim DO - 07/05/2019 1:29 PM EST H&P Notes (unrecognized sect ion and content) INTERVAL HISTORY AND PHYSICAL Patient Name: Lexy Beverly Admit Date: MR #: [id number] : 1955 The H&P has been reviewed and the patient has been examined. I concur with the findings of the H&P. There are no significant changes. It is appropriate to proceed with the planned procedure. Mika Kim DO 07/05/2019 1:29 PM documented in this encounter Mahsa Perez RN - 07/05/2019 2:40 PM Ana Alfonso RN - 07/05/2019 12:51 PM EST Nursing Notes (unrecognized section and content) Pt has adaptic oil to right cheek incision. Pt also has glued incision site to left upper chest that is skin graft site. Site to chest is well approximated without drainage. Lashell with pt. 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 THICKNESS SKIN GRAFT Pre-Operative Diagnoses: * ATYPICAL SARCOMA Post-Operative Diagnoses: Surgeon(s) and Role: * Mika Kim DO - Primary Anesthesiologist: Jeannine Blair MD * No surgical staff found * Operative findings: same Intra and immediate post-operative complications: none Type of anesthesia used: Monitor Anesthesia Care Estimated blood loss: Minimal Estimated urine output: Refer to surgical log Specimen(s): * No specimens in log * Implant(s): * No implants in log * Drain(s): * No LDAs found * Wound(s): * No LDAs found * Mika Kim DO 07/05/2019 1:31 PM documented in this encounter Care Teams (unrecognized sec tion and content) 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 Start Date End Date Gigi George DO [address] [place] [address] PCP - General Family Medicine 03/14/21 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 Start Date End Date Gigi George DO [address] [place] [address] PCP - General Family Medicine 03/14/21 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 Start Date End Date Gigi George DO [address] [place] [address] PCP - General Family Medicine 03/14/21 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 Start Date End Date Gigi George DO [address] [place] [address] PCP - General Family Medicine 03/14/21 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 Start Date End Date Gigi George DO [address] [place] [address] PCP - General Family Medicine 03/14/21 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 Start Date End Date Gigi George DO [address] [place] [address] PCP - General Family Medicine 03/14/21 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 Start Date End Date Gigi George DO [address] [place] [address] PCP - General Family Medicine 03/14/21 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 Start Date End Date Gigi George DO [address] [place] [address] PCP - General Family Medicine 03/14/21 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 Start Date End Date Gigi George DO [address] [place] [address] PCP - General Family Medicine 03/14/21 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 Start Date End Date Gigi George DO [address] [place] [address] PCP - General Family Medicine 03/14/21 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 Start Date End Date Gigi George DO [address] [place] [address] PCP - General Family Medicine 03/14/21 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 Start Date End Date Gigi George DO [address] [place] [address] PCP - General Family Medicine 03/14/21 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 Start Date End Date Gigi George DO [address] [place] [address] PCP - General Family Medicine 03/14/21 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 Start Date End Date Gigi George DO [address] [place] [address] PCP - General Family Medicine 03/14/21 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 Start Date End Date Gigi George DO [address] [place] [address] PCP - General Family Medicine 03/14/21 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 Start Date End Date Gigi George DO [address] [place] [address] PCP - General Family Medicine 03/14/21 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 Start Date End Date Gigi George DO [address] [place] [address] PCP - General Family Medicine 03/14/21 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 Start Date End Date Gigi George DO [address] [place] [address] PCP - General Family Medicine 03/14/21 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 Start Date End Date Gigi George DO [address] [place] [address] PCP - General Family Medicine 03/14/21 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 Start Date End Date Gigi George DO [address] [place] [address] PCP - General Family Medicine 03/14/21 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 Start Date End Date Gigi George DO [address] [place] [address] PCP - General Family Medicine 03/14/21 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 Start Date End Date Gigi George DO [address] [place] [address] PCP - General Family Medicine 03/14/21 William Galvan MD [address] [place] [address] Consulting Physician Pulmonology 01/18/25 Dayana Stahl MD [address] [address] Consulting Physician Neurology 01/18/25 Td Ivan PA-C [address] [place] [address] [address] Physician Experimental Mechanic Spacecraft Physician Experimental Mechanic Spacecraft 01/18/25 Ck Suarez MD [address] [place] [address] Covering Provider Internal Medicine 01/18/25 FOR RECORDS PERTAINING TO PATIENTS WHO ARE OR HAVE BEEN ENROLLED IN A CHEMICAL DEPENDENCY/SUBSTANCEABUSE PROGRAM, SOME INFORMATION MAY BE OMITTED. This clinical summary was aggregated from multiple sources. Caution should be exercised in using it in the provision of clinical care. This summary normalizes information from multiple sources, and as a consequence, information in this document may materially change the coding, format and clinical context of patient data. In addition, data may be omitted in some cases. CLINICAL DECISIONS SHOULD BE BASED ON THE PRIMARY CLINICAL RECORDS. [facility]. provides no warranty or guarantee of the accuracy or completeness of information in this document.
[2025-02-16 08:06] LABS: Hematocrit 42.8 % (40-54); Hemoglobin 14.1 g/dL (13.0-16.5); Mean Corp Hgb Conc 32.9 g/dL (32-36); Mean Corpuscular Volume 92.6 fL (80-94); Mean Platelet Vol. 9.9 fl (6.2-12.0); Platelet Count 183 K/mm3 (150-450); RBC Distribution Width CV 11.9 % (11.6-14.6); RBC Distribution Width SD 40.3 fl (35.1-43.9); Red Blood Count 4.62 M/mm3 (4.6-6.2); White Blood Count 3.9 K/mm3 (4.4-11.0)
--- NOTE | 2025-02-16 08:06 | CDU_ITS ---
Reason For Study Reason For Study: HX TIA Rt. Velocities/BP Lt. Velocities/BP Prox CCA 51.3/15.4 cm/sec. Prox CCA 98.6/21.2 cm/sec. Mid CCA 57.9/23.0 cm/sec. Mid CCA 91.2/27.4 cm/sec. Dist CCA 58.9/10.7 cm/sec. Dist CCA 76.5/24.9 cm/sec. Prox ICA 38.1/8.8 cm/sec. Prox ICA 56.9/18.8 cm/sec. Mid ICA 76.8/30.5 cm/sec. Mid ICA 91.2/34.8 cm/sec. Dist ICA 93.8/30.0 cm/sec. Dist ICA 104.7/37.2 cm/sec. Rt. ICA/CCA = 1.6. Lt. ICA/CCA = 1.1. Prox ECA 73.0/11.6 cm/sec. Prox ECA 112.1/18.8 cm/sec. Rt. Vert. 45.6/8.1 cm/sec. Lt. Vert. 36.2/16.3 cm/sec. Right Extracranial There is homogeneous, smooth atherosclerotic plaque noted in the right common carotid artery. There is homogeneous, smooth atherosclerotic plaque noted in the right internal carotid artery. There is heterogeneous, irregular atherosclerotic plaque noted in the right external carotid artery. Antegrade flow is noted in the right vertebral artery. Left Extracranial There is homogeneous, smooth atherosclerotic plaque noted in the left common carotid artery. There is heterogeneous, irregular atherosclerotic plaque noted in the left internal carotid artery. There is homogeneous, smooth atherosclerotic plaque noted in the left external carotid artery. Antegrade flow is noted in the left vertebral artery. Procedure Carotid Duplex [id number]. This is a Carotid Duplex examination using B-mode, color flow and specral Doppler. The exam was diagnostic. Exam performed in department. VL/Carotid Duplex Ultrasound Interpretation Summary Mild (<50%) stenosis right extracranial internal carotid. Mild (<50%) stenosis left extracranial internal carotid. Flow within the vertebral arteries is antegrade bilaterally. Ordering Physician: Evert Trujillo Referring Physician: Gigi Lainez Performed By: Jeison Mendoza RVT
--- NOTE | 2025-02-16 08:30 | MRI_ITS ---
EXAM: BRAIN WITHOUT CONTRAST CLINICAL HISTORY: TIA ON 02/07/25 COMPARISON: None. TECHNIQUE: Multiplanar, multisequence MR images of the brain were obtained without gadolinium contrast material. FINDINGS: No intracranial hemorrhage, mass, mass effect, midline shift or pathologic extra- axial fluid collection. No hydrocephalus. There is abnormal increased T2 and FLAIR signal in the deep white matter on the right and left with chronic ischemic change. There is focal gliosis and encephalomalacia in the right precentral cortex with chronic ischemic change. No areas of restricted diffusion to suggest acute ischemia or infarction. No gradient signal blooming artifacts are identified. No cerebellar tonsillar ectopia. No sellar/suprasellar signal abnormalities. The ocular globes and intraorbital soft tissues are symmetrically unremarkable. Paranasal sinuses are essentially clear. MRI/Brain without Contrast IMPRESSION: There is abnormal increased T2 and FLAIR signal in the deep white matter on the right and left with chronic ischemic change. There is focal gliosis and encephalomalacia in the right precentral cortex with chronic ischemic change. There is no acute restricted diffusion identified. Reading Location: [id number]
[2025-02-16 08:39] LABS: AST(SGOT) 26 U/L (<=37); Alanine Aminotransfer ALT/SGPT 19 U/L (<=46); Albumin, Serum 4.3 g/dL (3.4-4.8); Alkaline Phosphatase 60 U/L (40-129); Anion Gap 7 (5-15); BUN 17 mg/dL (4-19); BUN/Creat Ratio 15.5 RATIO (10-20); Calcium,Total 9.4 mg/dL (7.6-11.0); Carbon Dioxide 29.7 mmol/L (21.0-32.0); Chloride 105 mmol/L (98-108); Cholesterol 158 mg/dL (<=200); Globulin 2.5 g/dL (2.2-4.2); Glucose 83 mg/dL (70-99); Low Density Lipoprotein Calc. 92 mg/dL; Potassium 4.2 mmol/L (3.3-5.1); Triglycerides 68 mg/dL; Very Low Density Lipoprotein 14 mg/dL (5-40); cholesterol:hdl ratio screen 3.03
== END | disposition home or self-care (01) ==
LOC: MRI 07:29
PROVIDERS: PCP Family Medicine; Referring Provider Psychiatry & Neurology Neurology; Visit Provider Psychiatry & Neurology Neurology
DX: G45.9 Transient cerebral ischemic attack, unspecified (principal); I65.21 Occlusion and stenosis of right carotid artery
CPT/HCPCS: 36415; 70551; 80053; 80061; 85027; 93880